=== PATIENT | male | born 1950 | race Caucasian/White ===

== ENCOUNTER → 2016-08-14 | Outpatient (CLI) | payer OTHER ==
[~2016-08-14] MED LIST: ACET-24 PO; AMLO-110 PO; ASPEC81 PO; ASPI81TA28 PO; ATOR-24 PO; CLOP1TAB15 PO; CLR10 PO; CLX20 PO; COEN30CA8 PO; COQ10 PO; DOXY100C76 PO; DVN80 PO; EPIPEN0.3 M1 IM; EPP3/2 IM; FLUT0.15 NAE; GLUCOSAMINE; GLUCTAB32 PO; LISI40TA PO; METO25TA56 PO; MULT-506 PO; NTRGSL/4 UT; OMEG10007 PO; ONDA8TAB6 PO; OXYSR10 PO; REVIEWED; RXC5 PO; SIMV20TA2 PO; TRAM-10 PO; VITA1TAB12 PO; VNTHFA/IN INH; ZNTT/150 PO; vitamin E
[2016-08-14 17:48] LABS: ALT/SGPT 20 U/L (12-78); BLOOD UREA NITROGEN 12 mg/dl (7-18); BUN/CREATININE RATIO 16.9 (10-20); CALCIUM 8.5 mg/dl (8.5-10.1); CARBON DIOXIDE 28 mmol/L (21-32); CHLORIDE 108 mmol/L (98-107); CHOLESTEROL 106 mg/dl (0-200); CREATININE 0.71 mg/dl (0.60-1.40); GLUCOSE 92 mg/dl (70-99); POTASSIUM 4.1 mmol/L (3.5-5.1); SODIUM 141 mmol/L (136-145)
[2016-08-14 17:52] LABS: ALB/GLOB RATIO 1.3 (0.9-2); ALKALINE PHOSPHATASE 75 U/L (45-117); AST/SGOT 15 U/L (15-37); CHOLESTEROL/HDL RATIO 1.6; HDL CHOLESTEROL 67 mg/dl; LDL CHOLESTEROL CALCULATED 26 mg/dl; PROSTATE SPECIFIC ANTIGEN 0.262 ng/ml (0.000-4.000); TRIGLYCERIDES 64 mg/dl (0-150); VERY LOW DENSITY LIPOPROT CALC 13 mg/dl
== END | disposition home or self-care (01) ==
LOC: C.LABBFT 12:48
PROVIDERS: ATTEND Internal Medicine
DX: Z00.00 Encounter for general adult medical examination without abnormal findings (principal); I25.10 Atherosclerotic heart disease of native coronary artery without angina pectoris; I10 Essential (primary) hypertension

== ENCOUNTER → 2016-09-12 | Outpatient (CLI) | payer OTHER ==
[2016-09-12 12:45] LABS: ALT/SGPT 49 U/L (12-78); AST/SGOT 51 U/L (15-37); BLOOD UREA NITROGEN 24 mg/dl (7-18); BUN/CREATININE RATIO 24.2 (10-20); CARBON DIOXIDE 27 mmol/L (21-32); CHLORIDE 103 mmol/L (98-107); CREATININE 0.98 mg/dl (0.60-1.40); GLUCOSE 98 mg/dl (70-99); POTASSIUM 3.9 mmol/L (3.5-5.1); SODIUM 138 mmol/L (136-145)
[2016-09-12 12:46] LABS: ALKALINE PHOSPHATASE 78 U/L (45-117)
[2016-09-12 12:49] LABS: CALCIUM 9.3 mg/dl (8.5-10.1)
[2016-09-12 13:04] LABS: LYME DISEASE AB IGM NEG (NEG)
[2016-09-12 13:07] LABS: LYME DISEASE AB IGG NEG (NEG)
[2016-09-12 13:44] LABS: HEMATOCRIT 44.4 % (42-52); MEAN CELL VOLUME 90.4 fL (80-100); MEAN CORPUSCULAR HEMOGLOBIN 29.5 pg (25-34); MEAN CORPUSCULAR HGB CONC 32.7 g/dl (32-36); MEAN PLATELET VOLUME 11.4 fL (7.4-10.4); PLATELET COUNT 93 K/uL (130-400); RED BLOOD COUNT 4.91 M/uL (4.7-6.1); WHITE BLOOD COUNT 5.74 K/uL (4.8-10.8)
[2016-09-12 13:45] LABS: COMPLETE YES; ECHINOCYTES 1+; EOSINOPHIL % 0.9 %; LYMPH ABS # 1.25 K/uL (1.2-3.4); LYMPHOCYTE % 21.7 %; NEUTROPHILS % 38.3 %; PLT ESTIMATE DECREASED; VARIANT LYMPHOCYTE % 34.8 %
[2016-09-12 16:52] LABS: URINE APPEARANCE CLOUDY (CLEAR); URINE COLOR DK YELLOW; URINE EPITHELIAL CELL AUTO >30 /lpf (0-5); URINE NITRITE NEG (NEG); URINE SPECIFIC GRAVITY 1.042 (1.000-1.030); UROBILINOGEN NEG (NEG)
[2016-09-12 16:53] LABS: MANUAL MICROSCOPIC REQUIRED? NO; REVIEW REQ? YES
[2016-09-12 16:55] LABS: URINE BILIRUBIN NEG (NEG)
[2016-09-16 17:34] LABS: ANAPLASMA PHAGOCYTOPHIL IGG <1:64 (<1:64); ANAPLASMA PHAGOCYTOPHIL IGM <1:20 (<1:20); EHRLICHIA CHAFF IGG AB <1:64 (<1:64); EHRLICHIA CHAFF IGM AB <1:20 (<1:20)
== END | disposition home or self-care (01) ==
LOC: C.LABBFT 10:54
PROVIDERS: ATTEND Internal Medicine
DX: T14.8 Other injury of unspecified body region (principal); W57.XXXA Bitten or stung by nonvenomous insect and other nonvenomous arthropods, initial encounter; R50.9 Fever, unspecified

== ENCOUNTER 2016-11-05 07:53 | Inpatient (IN) | payer OTHER ==
--- NOTE | 2016-09-16 14:47 | PAT Medication Instructions ---
Service Date September 16, 2016. Current Home Medication List Albuterol Hfa (Ventolin Hfa), 2-4 PUFFS INH Q6H PRN for PRN Amlodipine (Norvasc), 5 MG PO QAM Aspirin Enteric Coated (Ecotrin Or Generic *), 81 MG PO QAM Atorvastatin (Lipitor), 40 MG PO QPM Doxycycline Monohydrate (Monodox), 100 MG PO BID Epinephrine (Epipen), 0.3 MG IM UD Fish Oil ([place]-3), 1 CAP PO QAM Fluticasone Propionate (Nasal) (Flonase Allergy Relief), 2 SPRAYS BÁRBARA QPM Qvolkybrghc-Bqarhsvtvkn-Qz Cho (Glucosamine Chondroitin &), 2 TAB PO QAM Lisinopril (Zestril), 40 MG PO QAM Loratadine (Claritin), 10 MG PO QPM Metoprolol Tartrate (Lopressor) (Lopressor), 75 MG PO BID Multivitamin (Multivitamin), 1 TAB PO QAM Nitroglycerin (Nitrostat), 0.4 MG UT PRN Ranitidine (Zantac), 150 MG PO HS Vitamin E (Vitamin E), 100 PO QAM [Coq10], 1 TAB PO QAM Medication Instructions For Your Scheduled Surgery Doxycycline Monohydrate (Monodox), 100 MG PO BID (to be completed prior to surgery) Epinephrine (Epipen), 0.3 MG IM UD (continue as directed if needed) - Hold the following medications 2 weeks prior to surgery: [Coq10], 1 TAB PO QAM Vitamin E (Vitamin E), 100 PO QAM Xkwqsxnszml-Wbwzmbdnodk-Xe Cho (Glucosamine Chondroitin &), 2 TAB PO QAM Fish Oil ([place]-3), 1 CAP PO QAM - Hold the following medications the morning of surgery: Multivitamin (Multivitamin), 1 TAB PO QAM Lisinopril (Zestril), 40 MG PO QAM - Take the following medications the morning of surgery with a sip of water: Nitroglycerin (Nitrostat), 0.4 MG UT PRN Metoprolol Tartrate (Lopressor) (Lopressor), 75 MG PO BID Amlodipine (Norvasc), 5 MG PO QAM Albuterol Hfa (Ventolin Hfa), 2-4 PUFFS INH Q6H PRN for PRN (bring with you day of surgery) Aspirin Enteric Coated (Ecotrin Or Generic *), 81 MG PO QAM - Take the following medications as scheduled the night before surgery: Ranitidine (Zantac), 150 MG PO HS Nitroglycerin (Nitrostat), 0.4 MG UT PRN Metoprolol Tartrate (Lopressor) (Lopressor), 75 MG PO BID Loratadine (Claritin), 10 MG PO QPM Fluticasone Propionate (Nasal) (Flonase Allergy Relief), 2 SPRAYS BÁRBARA QPM Atorvastatin (Lipitor), 40 MG PO QPM Albuterol Hfa (Ventolin Hfa), 2-4 PUFFS INH Q6H PRN for PRN If you have any questions please call us at [phone] (Jennifer Woodward PA-C ) or [phone] or [phone]
--- NOTE | 2016-09-16 15:15 | DIAGNOSTIC IMAGING REPORT ---
CHEST 2 VIEWS ROUTINE CLINICAL HISTORY: PAT preoperative evaluation COMPARISON STUDY: No previous studies for comparison. FINDINGS: The bones soft tissues and hemidiaphragms are normal. The cardiomediastinal silhouette is normal. The lungs are clear. The pulmonary vasculature is normal. IMPRESSION: Negative chest. Electronically signed by: Royce Adair M.D. 09/16/2016 3:14 PM Dictated Date/Time: 09/16/2016 3:14 PM
[2016-09-16 15:32] LABS: URINE APPEARANCE CLEAR (CLEAR); URINE BILIRUBIN NEG (NEG); URINE COLOR DK YELLOW; URINE NITRITE NEG (NEG); URINE SPECIFIC GRAVITY 1.025 (1.000-1.030); UROBILINOGEN NEG (NEG); ZZUR CULT IF INDIC CLEAN CATCH NO
[2016-09-16 15:36] LABS: BASO % 1.7 %; BASO ABS # 0.11 K/uL (0-0.2); COMPLETE YES; EOS % 2.6 %; HEMATOCRIT 38.1 % (42-52); IG% 0.2 %; LYMPH % 47.8 %; LYMPH ABS # 3.12 K/uL (1.2-3.4); MEAN CELL VOLUME 92.3 fL (80-100); MEAN CORPUSCULAR HEMOGLOBIN 29.5 pg (25-34); MEAN PLATELET VOLUME 9.5 fL (7.4-10.4); MONO % 11.6 %; NEUT % 36.1 %; PLATELET COUNT 260 K/uL (130-400); RED BLOOD COUNT 4.13 M/uL (4.7-6.1); WHITE BLOOD COUNT 6.53 K/uL (4.8-10.8)
[2016-09-16 15:38] LABS: MANUAL MICROSCOPIC REQUIRED? NO; REVIEW REQ? NO
[2016-09-16 15:39] LABS: INR 1.1 (0.9-1.1); PARTIAL THROMBOPLASTIN RATIO 1.2; PROTHROMBIN TIME (PATIENT) 11.5 SECONDS (9.0-12.0)
[2016-09-17 07:02] LABS: ESTIMATED AVERAGE GLUCOSE 123 mg/dl; HA1C FLAG Normal (Normal)
--- NOTE | 2016-11-04 22:28 | History and Physical ---
History & Physical Date & Time of Service: Nov 04, 2016 at 22:23 Chief Complaint: Left Knee Degenerative Joint Disease Primary Care Physician: Jamee Alford M.D. History of Present Illness Source: patient Social History Smoking Status: Former Smoker Alcohol Use: none Drug Use: none Immunizations History of Influenza Vaccine: No History of Tetanus Vaccine?: Yes History of Pneumococcal: Yes History of Hepatitis B Vaccine: Yes Multi-Drug Resistant Organisms History of MDRO: No Allergies Coded Allergies: BEE STING (Verified Allergy, Mild, ANAPHYLACTIC-WAS TREATED BY NOTE TAKER- SUPPOSED TO BE IMMUNE, 09/16/16) Naproxen (Verified Allergy, Mild, POSSIBLE HIVES, 09/16/16) Cat Dander (Verified Allergy, Unknown, WHEEZING, ITCHY EYES WITH SOME CATS , 09/16/16) Home Medications Scheduled Amlodipine (Norvasc), 5 MG PO QAM Aspirin Enteric Coated (Ecotrin Or Generic *), 81 MG PO QAM Atorvastatin (Lipitor), 40 MG PO QPM Doxycycline Monohydrate (Monodox), 100 MG PO BID Epinephrine (Epipen), 0.3 MG IM UD Fish Oil ([place]-3), 1 CAP PO QAM Fluticasone Propionate (Nasal) (Flonase Allergy Relief), 2 SPRAYS BÁRBARA QPM Ovnxaavzsev-Mldkwhnopxe-Ja Cho (Glucosamine Chondroitin &), 2 TAB PO QAM Lisinopril (Zestril), 40 MG PO QAM Loratadine (Claritin), 10 MG PO QPM Metoprolol Tartrate (Lopressor) (Lopressor), 75 MG PO BID Multivitamin (Multivitamin), 1 TAB PO QAM Nitroglycerin (Nitrostat), 0.4 MG UT PRN Ranitidine (Zantac), 150 MG PO HS Vitamin E (Vitamin E), 100 PO QAM [Coq10], 1 TAB PO QAM Scheduled PRN Albuterol Hfa (Ventolin Hfa), 2-4 PUFFS INH Q6H PRN for PRN Review of Systems Musculoskeletal: + joint pain (left knee pain), No swelling, No calf pain, No problem reported Physical Exam General Appearance: WD/WN, no apparent distress Head: normocephalic, atraumatic Eyes: normal inspection, PERRL ENT: normal ENT inspection Neck: supple, thyroid normal Respiratory/Chest: lungs clear Cardiovascular: regular rate, rhythm Abdomen/GI: normal bowel sounds, non tender Extremities/Musculoskelatal: no calf tenderness, + swelling (ROM 0-130, med jt line tenderness, varus, + crep, 5/5, N/V+) Impression Assessment and Plan Left knee OA Level of Care Med/Surg Advanced Directives Existing Living Will: Yes Existing Power of Chief Medical Officer: Yes VTE Prophylaxis VTE Risk Assessment Done? Y/N: Yes Risk Level: Low
[2016-11-05] VITALS (9 sets, daily range): BP systolic 91–153; BP diastolic 58–86; PULSE 58–81; TEMP 36.2–36.7; O2SAT 95–99; Ht 182.9 cm; Wt 101.1 kg
[~2016-11-05] VITALS: Ht 182.9 cm; Wt 101.1 kg
[~2016-11-05 07:53] MED LIST changes: -ACET-24 PO; +ACETAMINOPHEN 500 MG TAB PO SCH; -ASPI81TA28 PO; +BUPIVACAINE 0.5 % 5 MG/1 ML PF 10ML VIAL ONE; +BUPIVACAINE/EPINEPHRINE 0.25% 1:200,000 30 ML VIAL ONE; +CEFAZOLIN 2000 MG/60 ML D5W 60 ML IV SCH; -CLOP1TAB15 PO; -CLX20 PO; -COEN30CA8 PO; +CeleBREX 200 MG CAP PO SCH; +DEXAMETHASONE 4 MG TAB PO SCH; +DEXAMETHASONE SOD INJ 4 MG/ML VIAL ONE; -DVN80 PO; -EPIPEN0.3 M1 IM; +FAMOTIDINE 20 MG TAB PO SCH; +FENTANYL CITRATE INJ 50 MCG/1 ML 2 ML VIAL ONE; +GABAPENTIN 300 MG CAP PO SCH; -GLUCOSAMINE; +LACTATED RINGER'S 1000ML 1,000 ML IV SCH; +LACTATED RINGER'S 1000ML 500 ML IV SCH; +LACTATED RINGER'S 1000ML IV SCH; +METOCLOPRAMIDE HCL 10 MG TAB PO SCH; +MIDAZOLAM HCL 1 MG/ML 2ML VIAL ONE; +MISSING PHYSICIAN SIGNATURE ON ORDER SCH; -ONDA8TAB6 PO; -OXYSR10 PO; -REVIEWED; +ROPIVACAINE 5MG/ML 30 ML 150 MG, BUPIVACAINE/EPINEPHR 0.5% MPF 30 ML, DEXAMETHASONE INJ... INFIL SCH; -RXC5 PO; -SIMV20TA2 PO; -TRAM-10 PO; -vitamin E
--- NOTE | 2016-11-05 09:03 | History & Physical Bridge Note ---
H&P Re-Evaluation Bridge Note: I have examined the patient, reviewed the History & Physical and in the interval since the performance of the History & Physical I have noted the following changes of clinical significance: No changes noted
[2016-11-05] MEDS ORDERED: POVIDONE-IODINE OP SOLN 30 ML BTL ONE (09:47)
[2016-11-05] MEDS ORDERED: BACITRACIN 50000 UNIT VIAL ONE (09:47)
[2016-11-05] MEDS ORDERED: ROPIVACAINE 5MG/ML 30 ML 150 MG, BUPIVACAINE/EPINEPHR 0.5% MPF 30 ML, DEXAMETHASONE INJ... INFIL SCH ×6 (10:00)
[2016-11-05] MEDS ORDERED: ORTHO JOINT ANESTHETIC ONE (10:01)
[2016-11-05] MEDS ORDERED: MIDAZOLAM HCL 1 MG/ML 2ML VIAL ONE ×2 (10:29→10:58)
[2016-11-05] MEDS ORDERED: PROPOFOL IV EMULSION 10 MG/ML 20 ML VIAL IV ONE (10:41)
[2016-11-05] MEDS ORDERED: EpHEDrine SULFATE INJ 50 MG/ML AMP IV PRN (10:45)
[2016-11-05] MEDS ORDERED: ONDANSETRON INJ 2 MG/ML 2 ML VIAL IV PRN (10:45)
[2016-11-05] MEDS ORDERED: FENTANYL CITRATE INJ 50 MCG/1 ML 2 ML VIAL IV PRN (10:45)
[2016-11-05] MEDS ORDERED: ATROPINE SULFATE 0.1 MG/ML 5ML SYR IV PRN (10:45)
--- NOTE | 2016-11-05 11:55 | [facility] Operative Report ---
Operative Report Operative Date Nov 05, 2016. Pre-Operative Diagnosis Left Knee Degenerative Joint Disease Post-Operative Diagnosis same Procedure(s) Performed left total knee replacement Surgeon Dr. Danielle Human Resources Recruiter Surgeon(s) Royce Armendariz PA-C Estimated Blood Loss 5ml Findings end stage oa med compartment Specimens A. Left Knee Bone and Tissue Drains 2 hemovac Anesthesia spinal sedation Complication(s) None Disposition Recovery Room / PACU Indications end stage djd oa I attest to the content of the Intraoperative Record and any orders documented therein. Any exceptions are noted below.
[2016-11-05] MEDS ORDERED: ZOLPIDEM TARTRATE 5 MG TAB PO PRN (12:30)
[2016-11-05] MEDS ORDERED: MoRPHine SULFATE 2 MG/ML CARP IV PRN (12:30)
[2016-11-05] MEDS ORDERED: NITROGLYCERIN 0.4 MG SL PER TAB CHARGE UT PRN (12:30)
[2016-11-05] MEDS ORDERED: SOD PHOSPHATE/SOD BIPHOSPHATE ENEMA 132 ML BTL PR PRN (12:30)
[2016-11-05] MEDS ORDERED: EPINEPHRINE ADULT AUTO-INJECT 0.3 MG SYR IM PRN (12:30)
[2016-11-05] MEDS ORDERED: ALBUTEROL HFA 8 GM INHALER INH PRN (12:30)
[2016-11-05] MEDS ORDERED: TRAMADOL HCL 50 MG TAB PO PRN (12:30)
[2016-11-05] MEDS ORDERED: BISACODYL 10 MG SUPP PR PRN (12:30)
[2016-11-05] MEDS ORDERED: MAGNESIUM HYDROXIDE SUSP 30 ML UDC PO PRN (12:30)
[2016-11-05] MEDS ORDERED: MoRPHine SULFATE 4 MG/ML 1 ML CARP\\VIAL IV PRN (13:00)
--- NOTE | 2016-11-05 13:32 | DIAGNOSTIC IMAGING REPORT ---
TWO VIEWS LEFT KNEE CLINICAL HISTORY: Postoperative examination. FINDINGS: AP and crosstable lateral portable views of the left knee are obtained. A left knee arthroplasty is in near anatomic alignment. There has been undersurface remodeling of the patella. No acute fracture is seen. There are expected postoperative changes around the knee including skin clips, a surgical drain, soft tissue edema, and subcutaneous gas. A calcified fabella is noted. IMPRESSION: Expected postoperative changes status post left knee arthroplasty. No acute fracture is seen. Electronically signed by: David Sanchez M.D. 11/05/2016 1:30 PM Dictated Date/Time: 11/05/2016 1:30 PM
--- NOTE | 2016-11-05 14:12 | Anesthesiology Progress Note ---
Anesthesia Post Op Note Date & Time Nov 05, 2016 at 14:12 Vital Signs Pain Intensity: 0.0 Vital Signs Past 12 Hours Date Time Temp Pulse Resp B/P (MAP) Pulse Ox O2 Delivery O2 Flow Rate FiO2 11/05/16 14:05 36.5 58 16 118/75 (89) 98 Nasal Cannula 2.0 11/05/16 13:35 97 Nasal Cannula 2.0 11/05/16 13:35 36.2 68 16 134/69 (90) 97 Nasal Cannula 2.0 11/05/16 13:23 57 16 11/05/16 13:23 56 16 97 11/05/16 13:21 116/74 11/05/16 13:18 63 10 97 11/05/16 13:18 60 10 11/05/16 13:16 122/75 11/05/16 13:13 55 15 97 11/05/16 13:13 55 15 11/05/16 13:11 120/65 11/05/16 13:08 58 14 98 11/05/16 13:08 58 14 11/05/16 13:06 100/70 11/05/16 13:03 57 13 98 11/05/16 13:03 56 13 11/05/16 13:01 121/73 11/05/16 12:58 58 12 11/05/16 12:58 58 12 99 11/05/16 12:56 121/72 11/05/16 12:53 66 13 98 11/05/16 12:53 67 13 11/05/16 12:53 36.3 56 16 121/72 (83) 98 Nasal Cannula 2 11/05/16 12:52 64 18 11/05/16 12:52 64 18 98 11/05/16 12:51 120/73 11/05/16 12:47 60 13 98 11/05/16 12:47 63 13 11/05/16 12:46 121/67 11/05/16 12:42 62 13 97 11/05/16 12:42 63 13 11/05/16 12:41 118/72 11/05/16 12:37 62 12 96 11/05/16 12:37 61 12 11/05/16 12:36 123/73 11/05/16 12:32 68 12 98 11/05/16 12:32 70 12 11/05/16 12:31 60 12 11/05/16 12:31 59 12 126/70 99 11/05/16 12:26 67 20 11/05/16 12:26 68 20 127/70 98 11/05/16 12:21 35.9 77 14 135/72 98 Nasal Cannula 2 11/05/16 12:21 65 33 135/72 98 11/05/16 12:21 65 33 11/05/16 08:30 36.7 58 20 153/86 98 Room Air Notes Mental Status: alert / awake / arousable, participated in evaluation Pt Amnestic to Procedure: Yes Nausea / Vomiting: adequately controlled Pain: adequately controlled Airway Patency, RR, SpO2: stable & adequate BP & HR: stable & adequate Hydration State: stable & adequate Neuraxial Anesthesia: was administered, sensory block is resolving Anesthetic Complications: no major complications apparent
[2016-11-05] MEDS: D5W AND 1/2NSS + 20MEQ KCL 1,000 ML IV SCH (14:24)
[2016-11-05] MEDS: ACETAMINOPHEN 500 MG TAB PO SCH ×2 (14:24→21:25)
--- NOTE | 2016-11-05 14:51 | Medical Consult ---
History General Date of Service: Nov 05, 2016. Stated Complaint: Left Knee Degenerative Joint Disease HPI The patient is a 66 year old male who presents to [facility] with complaints of Left Knee Degenerative Joint Disease. The patient's primary care provider is Jamee Alford M.D.. This patient is seen postoperatively for medical consultation, patient is doing well and recovering without much pain. The patient was told to not take lisinopril the day of his surgery, he'll be reordered on November 06 at half his usual strength. The patient did see his incident response lead in [place] and received cardiac clearance for the surgery including a nuclear stress test, he however has not established care yet plans to do so with Dr. Denys Zuniga in this area. Currently the patient is resting comfortably without any needs Review of Systems ROS: well nourished well developed NC/AT PERRL EOMI Sclera normal Neck no JVD, no adenopathy, trachea midline Car is regular without murmur Lungs are clear no focal air loss, no cough Abd is soft non tender normal bowel sounds Extremity, no edema no cyanosis, still some mild numbness of the left lower leg Skin no rash or lesions Neuro Alert and oriented X3 Psyche no anxiety or depression Constitutional: reports: weakness, denies: chills, fever ENT: denies: loss of hearing, tinnitus Cardiovascular: denies: chest pain, chest pressure, chest tightness, diaphoresis Respiratory: denies: cough, orthopnea, shortness of breath Gastrointestinal: denies: abdominal pain, constipation, diarrhea Genitourinary - Male: denies: dysuria, hematuria, hesitancy Musculoskeletal: denies: arthralgias, neck pain, back pain Integumentary: denies: rash, redness, warmth, itching Neurologic: denies: headache, dizziness, general weakness Psychiatric: denies: no symptoms, anxiety, depression Past Medical History Past Medical History: coronary artery disease, GERD, high cholesterol, hypertension Past Surgical History: angioplasty with stent, vasectomy Family History Family history of heart disease in his father and Parkinson's disease in his mother Social History Hx Tobacco Use In Past Year?: Yes (CIGAR, PIPE X 45-50 YRS-QUIT 8 YRS AGO) Smoking Status: Former Smoker Immunizations History of Influenza Vaccine: No History of Tetanus Vaccine?: Yes History of Pneumococcal: Yes History of Hepatitis B Vaccine: Yes History of MDRO History of MDRO: No Allergies Coded Allergies: BEE STING (Verified Allergy, Mild, ANAPHYLACTIC-WAS TREATED BY WAREHOUSE STOCK CLERK- SUPPOSED TO BE IMMUNE, 11/05/16) Naproxen (Verified Allergy, Mild, POSSIBLE HIVES, 11/05/16) Cat Dander (Verified Allergy, Unknown, WHEEZING, ITCHY EYES WITH SOME CATS , 11/05/16) Current Medications Reported Home Medications Medications Dose Route/Sig Max Daily Dose Days Date Category [Coq10] 1 Tab PO QAM 09/16/16 Reported Vitamin E 100 Unit Tab 100 PO QAM 09/16/16 Reported Multivitamin (Multivitamins) Tab 1 Tab PO QAM 09/16/16 Reported Glucosamine Chondroitin & (Pwvgdugefeb-Urzwhemzsxn-Zz Cho) 1 Tab Tab 2 Tab PO QAM 09/16/16 Reported Claritin (Loratadine) 10 Mg Tab 10 Mg PO QPM 09/16/16 Reported Epipen (Epinephrine) 0.3 Mg/0.3 Ml Inj 0.3 Mg IM UD 09/16/16 Reported Nitrostat (Nitroglycerin) 0.4 Mg Tab 0.4 Mg UT PRN 09/16/16 Reported Norvasc (Amlodipine Besylate) 5 Mg Tab 5 Mg PO QAM 09/16/16 Reported Lipitor (Atorvastatin Calcium) 40 Mg Tab 40 Mg PO QPM 09/16/16 Reported Ventolin Hfa (Albuterol) 200 Puffs/58800 Mcg Aers 2-4 Puffs INH Q6H PRN 09/16/16 Reported Zantac (Ranitidine HCl) 150 Mg Tab 150 Mg PO HS 09/16/16 Reported Flonase Allergy Relief (Fluticasone Propionate (Nasal)) 50 Mcg/Act Spr 2 Sprays BÁRBARA QPM 09/16/16 Reported Zestril (Lisinopril) 40 Mg Tab 40 Mg PO QAM 09/16/16 Reported Monodox (Doxycycline Monohydrate) 100 Mg Cap 100 Mg PO BID 09/16/16 Reported Lopressor (Metoprolol Tartrate) 25 Mg Tab 75 Mg PO BID 11/07/07 Reported [place]-3 (Fish Oil) 1 Ea Cap 1 Cap PO QAM 10/29/07 Reported Ecotrin Or Generic * (Aspirin) 81 Mg Ectab 81 Mg PO QAM 10/29/07 Reported Physical Physical Exam Vital Signs: Date Time Temp Pulse Resp B/P (MAP) Pulse Ox O2 Delivery O2 Flow Rate FiO2 11/05/16 14:05 36.5 58 16 118/75 (89) 98 Nasal Cannula 2.0 11/05/16 13:35 97 Nasal Cannula 2.0 11/05/16 13:35 97 Nasal Cannula 2.0 11/05/16 13:35 36.2 68 16 134/69 (90) 97 Nasal Cannula 2.0 11/05/16 13:23 57 16 11/05/16 13:23 56 16 97 11/05/16 13:21 116/74 11/05/16 13:18 63 10 97 11/05/16 13:18 60 10 11/05/16 13:16 122/75 11/05/16 13:13 55 15 97 11/05/16 13:13 55 15 11/05/16 13:11 120/65 11/05/16 13:08 58 14 98 11/05/16 13:08 58 14 11/05/16 13:06 100/70 11/05/16 13:03 57 13 98 11/05/16 13:03 56 13 11/05/16 13:01 121/73 11/05/16 12:58 58 12 11/05/16 12:58 58 12 99 11/05/16 12:56 121/72 11/05/16 12:53 66 13 98 11/05/16 12:53 67 13 11/05/16 12:53 36.3 56 16 121/72 (83) 98 Nasal Cannula 2 11/05/16 12:52 64 18 11/05/16 12:52 64 18 98 11/05/16 12:51 120/73 11/05/16 12:47 60 13 98 11/05/16 12:47 63 13 11/05/16 12:46 121/67 11/05/16 12:42 62 13 97 11/05/16 12:42 63 13 11/05/16 12:41 118/72 11/05/16 12:37 62 12 96 11/05/16 12:37 61 12 11/05/16 12:36 123/73 11/05/16 12:32 68 12 98 11/05/16 12:32 70 12 11/05/16 12:31 60 12 11/05/16 12:31 59 12 126/70 99 11/05/16 12:26 67 20 11/05/16 12:26 68 20 127/70 98 11/05/16 12:21 35.9 77 14 135/72 98 Nasal Cannula 2 11/05/16 12:21 65 33 135/72 98 11/05/16 12:21 65 33 11/05/16 08:30 36.7 58 20 153/86 98 Room Air General Appearance: WELL-APPEARING, NO APPARENT DISTRESS, uncomfortable Head: NORMOCEPHALIC, ATRAUMATIC Eyes: PERRLA, EOMI Respiratory: BREATH SOUNDS NORMAL, CLEAR TO AUSCULTATION, CLEAR TO PERCUSSION Cardiovasular: REGULAR RATE/RHYTHM, NORMAL S1S2, NO MURMUR Abdomen: NON TENDER, NORMAL BOWEL SOUNDS, NO REBOUND Back: NORMAL INSPECTION, NO MIDLINE TENDERNESS, NO CVA TENDERNESS Upper Extremities: NO EDEMA, NO DEFORMITY Lower Extremities: other (his left lower extremity is warm with good capillary refill) Neuro: ALERT, ORIENTED x 3 Psychiatric: NORMAL AFFECT, NO SUICIDAL IDEATION Impression Assessment and Plan 66-year-old male status post left total knee arthroplasty with cardiac clearance from incident response lead Cardiovascular/hypertension the patient was maintained on his metoprolol and amlodipine. His Synthroid dose was held on the will be reduced to 20 on the hydralazine tobacco for hypertensive control Surgery as soon just. Aspirin twice a day for DVT prevention perioperatively this will also serve her cardiovascular risk reduction given his stent On postoperative dyslipidemia Maintenance Zantac for GERD Thank you this consultation we'll follow along with you
[2016-11-05] MEDS ORDERED: HydrALAZINE HCL 20 MG/ML VIAL IV PRN (15:00)
--- NOTE | 2016-11-05 18:09 | [facility] Operative Report ---
Operative Report Operative Date Nov 05, 2016. Pre-Operative Diagnosis Left Knee Degenerative Joint Disease Post-Operative Diagnosis same Procedure(s) Performed Left total knee arthroplasty. The patient was taken to the operating room and anesthetized under spinal and regional block anesthesia. Patient was placed supine on the the operating table. A pneumatic tourniquet was placed about the upper thigh. The knee exam demonstrated stiff varus knee with old arthroscopic portal sites in the skin.. An anterior longitudinal incision was made across the knee. Skin flaps were elevated. An incision was made into the medial retinaculum and extended up into the mid third of the quadriceps tendon and extended down to the tibial tubercle. Intra-articular findings demonstrated scar tissue grade 4 medial compartment [id number] tricompartmental degenerative arthritis.. The knee was exposed by excising cruciate ligaments and menisci. The infrapatellar fat pad was resected. The fat pad over the anterior femur at the upper aspect of the articular surface was resected for placement of the component in that area. A subperiosteal peel lateral release was performed around the patella The Hu and nephKingmaker journey 2.0 total knee arthroplasty system was utilized for the procedure. The custom femoral cutting guide was pinned in position. The distal femoral cut was made. The size 6, 5 in 1 cutting block was placed. The anterior posterior and chamfer cuts were made. The knee was extended and a free hand cut technique was performed to the patella. The patella with was measured and the width was reproduced using a size 35 mm patella component. 3 drill holes are made for the patella component pegs. The tibia was then subluxed. The custom tibial cutting block was pinned in position and the proximal tibial cut was made with the oscillating saw. The size 6 tibial trial was externally rotated in line with the tibial tubercle and pinned in position. The punch for the stem was used and the collet was placed. Tibial trials were used for the insert. The size 11 mm trial gave balanced ligaments through full range of motion. Patella tracking was assessed with range of motion. The patella tracked centrally. The trials were removed. The Orthomix anesthetic cocktail was injected per protocol. The cut bone surfaces and soft tissue were copiously irrigated with antibiotic solution with bacitracin. The final components were cemented with Simplex cement. The final components were the 6 Oxinium posterior stabilized Hu nephew journey 2.0 femoral component the 6 tibial baseplate the 11 mm high flex posterior stabilized polyethylene and the 35 mm patella. While the cement cured the Betadine soak was used per protocol. When the cement cured the knee was copiously irrigated with pulsatile lavage antibiotic solution with bacitracin. 2 drains were brought out laterally connected to Hemovac. The quadriceps tendon and medial retinaculum were closed with interrupted [id number] #1 Vicryl sutures. The knee was taken through full range of motion and repair was secure. The subcutaneous tissues were closed with 2-0 Vicryl sutures. The skin was closed with susana. A sterile dressing was applied. The tourniquet was let down and the patient had good capillary refill to the extremity. The patient tolerated the procedure well. My physician assistant finance manager Royce LESLIE assisted in the procedure including prepping draping leg positioning soft tissue retraction instrument management and assisted in the closure ,dressings application and will participate in postoperative care the patient. Surgeon Dr. Danielle Warp Hauler Surgeon(s) Royce LESLIE-Veronica Estimated Blood Loss 5ml Findings Tricompartmental DJD medial compartment grade 4 with varus knee Specimens A. Left Knee Bone and Tissue Drains 2 hemovac Anesthesia spinal sedation Complication(s) None Disposition Recovery Room / PACU Indications End-stage osteoarthritis left knee I attest to the content of the Intraoperative Record and any orders documented therein. Any exceptions are noted below.
[2016-11-05] MEDS: OXYCODONE HCL IR 5 MG TAB (IMMEDIATE RELEASE) PO PRN (18:56)
[2016-11-05] MEDS: CEFAZOLIN IV 2,000 MG in DEXTROSE 5% 50ML 50 ML IV SCH (19:16)
[2016-11-05] MEDS: METOPROLOL TARTRATE 25 MG TAB PO SCH (21:00)
[2016-11-05] MEDS: OXYCODONE HCL 10 MG TABCR (OXYCONTIN) PO SCH (21:20)
[2016-11-05] MEDS: RANITIDINE HCL 150 MG TAB PO SCH (21:22)
[2016-11-05] MEDS: FLUTICASONE PROPIONATE NA SPR 16 GM BTL NAE SCH (21:22)
[2016-11-05] MEDS: ATORVASTATIN 40 MG TAB PO SCH (21:23)
[2016-11-05] MEDS: ASPIRIN 81 MG ECTAB PO SCH (21:24)
[2016-11-05] MEDS: LORATADINE 10 MG TAB PO SCH (21:24)
[2016-11-05] MEDS: DOCUSATE SODIUM 100 MG CAP PO SCH (21:24)
[2016-11-06] VITALS (8 sets, daily range): BP systolic 110–166; BP diastolic 62–89; PULSE 77–92; TEMP 36.5–37.1; O2SAT 94–98
[2016-11-06] MEDS: D5W AND 1/2NSS + 20MEQ KCL 1,000 ML IV SCH (00:02)
[2016-11-06] MEDS: CEFAZOLIN IV 2,000 MG in DEXTROSE 5% 50ML 50 ML IV SCH (01:31)
[2016-11-06] MEDS: OXYCODONE HCL IR 5 MG TAB (IMMEDIATE RELEASE) PO PRN ×3 (03:45→16:29)
[2016-11-06] MEDS: ACETAMINOPHEN 500 MG TAB PO SCH ×3 (05:32→22:02)
[2016-11-06 05:51] LABS: HEMATOCRIT 31.4 % (42-52); MEAN CELL VOLUME 92.1 fL (80-100); MEAN CORPUSCULAR HEMOGLOBIN 30.2 pg (25-34); MEAN CORPUSCULAR HGB CONC 32.8 g/dl (32-36); MEAN PLATELET VOLUME 8.8 fL (7.4-10.4); PLATELET COUNT 182 K/uL (130-400); RED BLOOD COUNT 3.41 M/uL (4.7-6.1); WHITE BLOOD COUNT 13.48 K/uL (4.8-10.8)
[2016-11-06 06:26] LABS: BUN/CREATININE RATIO 24.4 (10-20); CREATININE 0.74 mg/dl (0.60-1.40); POTASSIUM 3.9 mmol/L (3.5-5.1)
[2016-11-06 06:49] LABS: CALCIUM 8.3 mg/dl (8.5-10.1)
[2016-11-06] MEDS: OXYCODONE HCL 10 MG TABCR (OXYCONTIN) PO SCH ×2 (08:40→20:41)
[2016-11-06] MEDS: MULTIVITAMIN TAB PO SCH (08:41)
[2016-11-06] MEDS: DOCUSATE SODIUM 100 MG CAP PO SCH ×2 (08:41→20:40)
[2016-11-06] MEDS: AMLODIPINE BESYLATE 5 MG TAB PO SCH (08:41)
[2016-11-06] MEDS: ASPIRIN 81 MG ECTAB PO SCH ×2 (08:42→20:40)
[2016-11-06] MEDS: METOPROLOL TARTRATE 25 MG TAB PO SCH ×2 (08:42→20:42)
[2016-11-06] MEDS: PANTOprazole SOD 40 MG TAB PO SCH (08:42)
[2016-11-06] MEDS ORDERED: LISINOPRIL 10 MG TAB PO SCH (09:00)
[2016-11-06] MEDS ORDERED: LISINOPRIL 40 MG TAB PO SCH (09:00)
--- NOTE | 2016-11-06 09:24 | Orthopedic Progress Note ---
Orthopedic Progress Note Date of Service Nov 06, 2016. Subjective Post OP Day: 1 Reports: feeling well Objective N/V intact, dressing C/D/I (Hemovac in place), toes mobile Date Time Temp Pulse Resp B/P (MAP) Pulse Ox O2 Delivery O2 Flow Rate FiO2 11/06/16 08:42 77 115/66 (82) 11/06/16 07:15 Room Air 11/06/16 07:00 37.0 84 16 110/64 (79) 96 Room Air 11/06/16 03:37 36.7 81 16 116/67 (83) 95 Room Air 11/05/16 23:10 36.7 81 16 111/67 (82) 96 Room Air 11/05/16 20:30 100/62 (75) 11/05/16 20:25 Room Air 11/05/16 20:12 36.7 70 16 91/58 (69) 96 Room Air 11/05/16 16:45 Nasal Cannula 2.0 11/05/16 16:35 36.5 67 16 134/76 (95) 95 Room Air 11/05/16 15:35 36.5 59 16 130/74 (92) 97 Nasal Cannula 2.0 11/05/16 14:35 59 16 144/80 (101) 99 11/05/16 14:05 36.5 58 16 118/75 (89) 98 Nasal Cannula 2.0 11/05/16 13:35 97 Nasal Cannula 2.0 11/05/16 13:35 97 Nasal Cannula 2.0 11/05/16 13:35 36.2 68 16 134/69 (90) 97 Nasal Cannula 2.0 11/05/16 13:23 57 16 11/05/16 13:23 56 16 97 11/05/16 13:21 116/74 11/05/16 13:18 63 10 97 11/05/16 13:18 60 10 11/05/16 13:16 122/75 11/05/16 13:13 55 15 97 11/05/16 13:13 55 15 11/05/16 13:11 120/65 11/05/16 13:08 58 14 98 11/05/16 13:08 58 14 11/05/16 13:06 100/70 11/05/16 13:03 57 13 98 11/05/16 13:03 56 13 11/05/16 13:01 121/73 11/05/16 12:58 58 12 11/05/16 12:58 58 12 99 11/05/16 12:56 121/72 11/05/16 12:53 66 13 98 11/05/16 12:53 67 13 11/05/16 12:53 36.3 56 16 121/72 (83) 98 Nasal Cannula 2 11/05/16 12:52 64 18 11/05/16 12:52 64 18 98 11/05/16 12:51 120/73 11/05/16 12:47 60 13 98 11/05/16 12:47 63 13 11/05/16 12:46 121/67 11/05/16 12:42 62 13 97 11/05/16 12:42 63 13 11/05/16 12:41 118/72 11/05/16 12:37 62 12 96 11/05/16 12:37 61 12 11/05/16 12:36 123/73 11/05/16 12:32 68 12 98 11/05/16 12:32 70 12 11/05/16 12:31 60 12 11/05/16 12:31 59 12 126/70 99 11/05/16 12:26 67 20 11/05/16 12:26 68 20 127/70 98 11/05/16 12:21 35.9 77 14 135/72 98 Nasal Cannula 2 11/05/16 12:21 65 33 135/72 98 11/05/16 12:21 65 33 Laboratory Results 24 Hours: Test 11/06/16 05:43 Hematocrit 31.4 % Hemoglobin 10.3 g/dL Assessment & Plan Assessment: 66 yo male stable POD #1 s/p left TKA Plan: 1. Med management 2. DVT prophylaxis- ASA, SCDs 3. PT/OT 4. D/C planning- home w/ OPPT
--- NOTE | 2016-11-06 10:27 | Anesthesiology Progress Note ---
Anesthesia Post Op Note Date & Time Nov 06, 2016 at 10:27 Vital Signs Vital Signs Past 12 Hours Date Time Temp Pulse Resp B/P (MAP) Pulse Ox O2 Delivery O2 Flow Rate FiO2 11/06/16 08:42 77 115/66 (82) 11/06/16 07:15 Room Air 11/06/16 07:00 37.0 84 16 110/64 (79) 96 Room Air 11/06/16 03:37 36.7 81 16 116/67 (83) 95 Room Air 11/05/16 23:10 36.7 81 16 111/67 (82) 96 Room Air Notes Mental Status: alert / awake / arousable, participated in evaluation Pt Amnestic to Procedure: Yes Nausea / Vomiting: adequately controlled Pain: adequately controlled Airway Patency, RR, SpO2: stable & adequate BP & HR: stable & adequate Hydration State: stable & adequate Neuraxial Anesthesia: sensory block resolved Anesthetic Complications: no major complications apparent
--- NOTE | 2016-11-06 12:05 | Hospitalist Progress Note ---
Hospitalist Progress Note Date of Service Nov 06, 2016. Subjective Pt evaluation today including: conversation w/ patient, physical exam, chart review, lab review, review of inpatient medication list Pain: 5/10 aching left knee pain PO Intake: Tolerating PO diet Voiding: no voiding problems Patient complains of a 5/10 aching pain in her left knee but is otherwise feeling well. He states that immediately post op he had 2 episodes of incontinence while he was still numb from the anesthesia, but after the anesthesia wore off he has not had any urinary issues. He is tolerating a PO diet without difficulty. He is passing gas but denies any bowel movements. The patient did have an episode of nausea, vomiting, and dizziness during physical therapy, but this resolved immediately after laying back down in bed and has not recurred since. The patient denies fevers, chills, sweats, chest pain, palpitations, claudication, cough, wheezing, shortness of breath, abdominal pain, dysuria, hematuria, urinary retention, paralysis, weakness, numbness and tingling. Additional Comments: See HPI for pertinent positives and negatives. All other systems reviewed and negative. Objective Vital Signs Date Time Temp Pulse Resp B/P (MAP) Pulse Ox O2 Delivery O2 Flow Rate FiO2 11/06/16 11:23 82 94 11/06/16 10:50 36.5 80 16 124/75 (91) 96 Room Air 11/06/16 08:42 77 115/66 (82) 11/06/16 07:15 Room Air 11/06/16 07:00 37.0 84 16 110/64 (79) 96 Room Air 11/06/16 03:37 36.7 81 16 116/67 (83) 95 Room Air 11/05/16 23:10 36.7 81 16 111/67 (82) 96 Room Air 11/05/16 20:30 100/62 (75) 11/05/16 20:25 Room Air 11/05/16 20:12 36.7 70 16 91/58 (69) 96 Room Air 11/05/16 16:45 Nasal Cannula 2.0 11/05/16 16:35 36.5 67 16 134/76 (95) 95 Room Air 11/05/16 15:35 36.5 59 16 130/74 (92) 97 Nasal Cannula 2.0 11/05/16 14:35 59 16 144/80 (101) 99 11/05/16 14:05 36.5 58 16 118/75 (89) 98 Nasal Cannula 2.0 11/05/16 13:35 97 Nasal Cannula 2.0 11/05/16 13:35 97 Nasal Cannula 2.0 11/05/16 13:35 36.2 68 16 134/69 (90) 97 Nasal Cannula 2.0 11/05/16 13:23 57 16 11/05/16 13:23 56 16 97 11/05/16 13:21 116/74 11/05/16 13:18 63 10 97 11/05/16 13:18 60 10 11/05/16 13:16 122/75 11/05/16 13:13 55 15 97 11/05/16 13:13 55 15 11/05/16 13:11 120/65 11/05/16 13:08 58 14 98 11/05/16 13:08 58 14 11/05/16 13:06 100/70 11/05/16 13:03 57 13 98 11/05/16 13:03 56 13 11/05/16 13:01 121/73 11/05/16 12:58 58 12 11/05/16 12:58 58 12 99 11/05/16 12:56 121/72 11/05/16 12:53 66 13 98 11/05/16 12:53 67 13 11/05/16 12:53 36.3 56 16 121/72 (83) 98 Nasal Cannula 2 11/05/16 12:52 64 18 11/05/16 12:52 64 18 98 11/05/16 12:51 120/73 11/05/16 12:47 60 13 98 11/05/16 12:47 63 13 11/05/16 12:46 121/67 11/05/16 12:42 62 13 97 11/05/16 12:42 63 13 11/05/16 12:41 118/72 11/05/16 12:37 62 12 96 11/05/16 12:37 61 12 11/05/16 12:36 123/73 11/05/16 12:32 68 12 98 11/05/16 12:32 70 12 11/05/16 12:31 60 12 11/05/16 12:31 59 12 126/70 99 11/05/16 12:26 67 20 6/28/17 12:26 68 20 127/70 98 11/05/16 12:21 35.9 77 14 135/72 98 Nasal Cannula 2 11/05/16 12:21 65 33 135/72 98 11/05/16 12:21 65 33 Physical Exam General Appearance: WD/WN, no apparent distress, + obese Eyes: normal inspection, PERRL, EOMI ENT: normal ENT inspection, hearing grossly normal, pharynx normal Neck: supple, no JVD, trachea midline Respiratory/Chest: lungs clear, normal breath sounds, no respiratory distress Cardiovascular: regular rate, rhythm, no edema, no murmur Abdomen: normal bowel sounds, non tender, soft Extremities: no pedal edema, no calf tenderness, normal capillary refill, + pertinent finding (left knee TTP) Neurologic/Psychiatric: alert, normal mood/affect, oriented x 3 Skin: normal color, warm/dry, no rash Laboratory Results Last 24 Hours Test 11/06/16 05:43 White Blood Count 13.48 K/uL Red Blood Count 3.41 M/uL Hemoglobin 10.3 g/dL Hematocrit 31.4 % Mean Corpuscular Volume 92.1 fL Mean Corpuscular Hemoglobin 30.2 pg Mean Corpuscular Hemoglobin Concent 32.8 g/dl RDW Standard Deviation 48.2 fL RDW Coefficient of Variation 14.3 % Platelet Count 182 K/uL Mean Platelet Volume 8.8 fL Sodium Level 140 mmol/L Potassium Level 3.9 mmol/L Chloride Level 108 mmol/L Carbon Dioxide Level 25 mmol/L Anion Gap 7.0 mmol/L Blood Urea Nitrogen 18 mg/dl Creatinine 0.74 mg/dl Est Creatinine Clear Calc Drug Dose 119.2 ml/min Estimated GFR () 110.6 Estimated GFR (Non- 95.4 BUN/Creatinine Ratio 24.4 Random Glucose 153 mg/dl Calcium Level 8.3 mg/dl Assessment and Plan 66 y/o male with a history of HTN, HLD, CAD s/p stent, asthma and GERD who presents s/p left TKA with Dr. Danielle on 11/05 for medical management. -Pain management, DVT prophylaxis, and PT/OT as per primary team -POD #1 Nausea, vomiting, dizziness-resolved -Likely presyncopal episode during PT -Continue to monitor HTN, CAD s/p stent--stable -Continue metoprolol tartrate 75 mg PO BID, amlodipine 5 mg PO qd, and lisinopril 40 mg PO qd HLD -Continue atorvastatin 40 mg PO qd Asthma -Continue albuterol inhaler prn GERD -Continue Zantac 150 mg PO qhs Code Status -Level I, FULL RESUSCITATION STATUS Thank you for this consultation. We will continue to follow.
[2016-11-06] MEDS: FLUTICASONE PROPIONATE NA SPR 16 GM BTL NAE SCH (20:38)
[2016-11-06] MEDS: ATORVASTATIN 40 MG TAB PO SCH (22:01)
[2016-11-06] MEDS: RANITIDINE HCL 150 MG TAB PO SCH (22:01)
[2016-11-06] MEDS: LORATADINE 10 MG TAB PO SCH (22:01)
[2016-11-07] MEDS: ACETAMINOPHEN 500 MG TAB PO SCH (05:28)
[2016-11-07 06:40] VITALS: BP 124/78; PULSE 85; TEMP 37.1; O2SAT 96
[2016-11-07 06:57] LABS: HEMATOCRIT 30.8 % (42-52); MEAN CELL VOLUME 92.2 fL (80-100); MEAN CORPUSCULAR HEMOGLOBIN 29.9 pg (25-34); MEAN CORPUSCULAR HGB CONC 32.5 g/dl (32-36); MEAN PLATELET VOLUME 9.3 fL (7.4-10.4); PLATELET COUNT 214 K/uL (130-400); RED BLOOD COUNT 3.34 M/uL (4.7-6.1)
[2016-11-07] MEDS: OXYCODONE HCL IR 5 MG TAB (IMMEDIATE RELEASE) PO PRN (07:21)
[2016-11-07 07:33] LABS: BUN/CREATININE RATIO 18.9 (10-20); CREATININE 0.77 mg/dl (0.60-1.40); POTASSIUM 3.9 mmol/L (3.5-5.1)
[2016-11-07 07:37] LABS: CALCIUM 8.8 mg/dl (8.5-10.1)
--- NOTE | 2016-11-07 07:48 | Orthopedic Progress Note ---
Orthopedic Progress Note Date of Service Nov 07, 2016. Subjective Post OP Day: 2 Reports: feeling well, pain controlled w PO medications, Denies: complaints, chest pain, SOB, nausea / vomiting, light headedness, calf pain Additional Notes: Reports no more N/V since single episode yesterday morning. Objective calves soft nontender, N/V intact, capillary refill less than 2 sec., dressing C /D/I, A&O x3, toes mobile silverlon in tact. Date Time Temp Pulse Resp B/P (MAP) Pulse Ox O2 Delivery O2 Flow Rate FiO2 11/07/16 06:40 37.1 85 16 124/78 (93) 96 Room Air 11/06/16 23:59 Room Air 11/06/16 23:03 37.1 92 16 149/78 (101) 98 Room Air 11/06/16 20:42 166/89 (114) 11/06/16 16:15 Room Air 11/06/16 15:47 36.9 81 17 133/62 (85) 98 Room Air 11/06/16 11:23 82 94 11/06/16 10:50 36.5 80 16 124/75 (91) 96 Room Air 11/06/16 08:42 77 115/66 (82) Laboratory Results 24 Hours: Test 11/07/16 06:34 Hematocrit 30.8 % Hemoglobin 10.0 g/dL Assessment & Plan Assessment: 66 yo male stable POD #2 s/p left TKA Plan: 1. Med management 2. DVT prophylaxis- ASA, SCDs 3. PT/OT 4. D/C planning- home w/ OPPT today
[2016-11-07] MEDS ORDERED: ONDA8TAB6 PO (07:52)
[2016-11-07] MEDS ORDERED: RXC5 PO (07:52)
[2016-11-07] MEDS ORDERED: ASPEC81 PO (07:52)
[2016-11-07] MEDS ORDERED: ACET-24 PO (07:52)
[2016-11-07] MEDS ORDERED: OXYSR10 PO (07:52)
--- NOTE | 2016-11-07 07:53 | Discharge Instructions ---
Discharge Instructions Date of Service Nov 07, 2016. Admission Reason for Admission: Left Knee Degenerative Joint Disease Discharge Discharge Diagnosis / Problem: Left TKA Discharge Goals Goal(s): Improve function Activity Recommendations Activity Limitations: as noted below . Instructions / Follow-Up Instructions / Follow-Up ACTIVITY RECOMMENDATIONS: SELF CARE INSTRUCTIONS AFTER TOTAL KNEE REPLACEMENT A. You may need to continue a physical therapy program after discharge from the hospital. There are several options available to you. Your doctor will assist you in selecting the best one for you. 1. An out-patient facility 2 to 3 times a week for therapy or home therapy. 2. Continue working on all exercises taught to you in the hospital. Your goals should be to increase bending of your knee to 90 degrees and beyond and to fully straighten your knee. B. You may progress at your own pace from walking with a walker or crutches to a cane; then to no assistive devices. C. Make walking a part of your daily routine. Be up as much as comfortable with rest periods throughout the day. Rest with leg elevation is very important. Use the ice wrap frequently for the first 3-4 weeks. D. There are no restrictions on activities. You may ride in a car, shop, participate in director of corporate sales and all social activities. E. Wear the long elastic stockings (SPENCER hose) 20 hours a day for 2 weeks after surgery. They can be removed several times a day for laundering and for a bath. F. You may shower, no tub baths until cleared by your doctor. SPECIAL CARE INSTRUCTIONS: VERY IMPORTANT TO READ AND REVIEW A. There are a few signs you need to watch for after you are home. Call [facility] if you notice any of the followin. Increased severe knee pain. Some pain is expected especially when you exercise. 2. Increased swelling in your leg or knee; pain or swelling of the calf muscle in either lower leg. 3. Any fluid drainage from the incision. 4. Shortness of breath or chest pain. B. Please call [facility] at if you have any concerns or questions about your operation or recovery. The doctor or his nurse will return your call promptly. C. You must take antibiotics before dental work, bladder, bowel or other surgery. Your doctor will provide you with a permanent care to carry describing this precaution. IMPORTANT: * REMEMBER TO TAKE ASPIRIN, 81 MG, TWICE DAILY FOR 4 WEEKS UNLESS OTHERWISE DIRECTED. THIS IS YOUR BLOOD THINNER. * HIGH RISK PATIENTS MAY BE PRESCRIBED A STRONGER BLOOD THINNER. THIS WILL BE PROVIDED AT DISCHARGE. * CALL IF INCREASED PAIN, REDNESS, DRAINAGE OR FEVER GREATER THAT 101. * WEAR SPENCER HOSE 20 HOURS PER DAY FOR 2 WEEKS. * YOU MAY HAVE A LARGE BAND-AID LIKE DRESSING (SILVERON). THIS WILL REMAIN ON YOUR INCISION FOR 7 DAYS, THEN CAN BE REMOVED. IF INCISION IS LEAKING THROUGH DRESSING, CALL THE OFFICE . FOLLOW UP VISIT: If appointment is not already scheduled: Please call [facility] to make a follow-up appointment for 2 weeks after your surgery at . Current Hospital Diet Patient's current hospital diet: Regular Diet Discharge Diet Recommended Diet: Regular Diet Procedures Procedures Performed: Left Total Knee Arthroplasty Pending Studies Studies pending at discharge: no Laboratory Results Hemoglobin A1c Test 09/16/16 14:55 Range/Units Estimated Average Glucose 123 mg/dl Hemoglobin A1c 5.9 H 4.5-5.6 % Lipid Panel Test 08/14/16 12:59 Range/Units Triglycerides Level 64 0-150 mg/dl Cholesterol Level 106 0-200 mg/dl HDL Cholesterol 67 mg/dl Cholesterol/HDL Ratio 1.6 LDL Cholesterol, Calculated 26 mg/dl Medical Emergencies . Who to Call and When: Medical Emergencies: If at any time you feel your situation is an emergency, please call 911 immediately. . Non-Emergent Contact Non-Emergency issues call your: Primary Care Provider . "Provider Documentation" section prepared by Royce Armendariz. . VTE Core Measure Inpt VTE Proph given/why not?: Other Anticoagulation (asa), T.E.DDale Hernandez, SCD's [place] Drug Monitoring Program Search Results: patient reviewed within database, no issues identified
[2016-11-07 08:08] VITALS: BP 131/70; PULSE 82
[2016-11-07] MEDS: AMLODIPINE BESYLATE 5 MG TAB PO SCH (08:10)
[2016-11-07] MEDS: MULTIVITAMIN TAB PO SCH (08:10)
[2016-11-07] MEDS: METOPROLOL TARTRATE 25 MG TAB PO SCH (08:11)
[2016-11-07] MEDS: OXYCODONE HCL 10 MG TABCR (OXYCONTIN) PO SCH (08:11)
[2016-11-07] MEDS: PANTOprazole SOD 40 MG TAB PO SCH (08:12)
[2016-11-07] MEDS ORDERED: LISINOPRIL 40 MG TAB PO SCH (09:00)
[2016-11-07] MEDS: DOCUSATE SODIUM 100 MG CAP PO SCH (09:37)
[2016-11-07] MEDS: ASPIRIN 81 MG ECTAB PO SCH (09:38)
[2016-11-07 11:19] VITALS: BP 131/70; PULSE 82; TEMP 37.1; O2SAT 96
--- NOTE | 2016-11-07 12:26 | Hospitalist Progress Note ---
Hospitalist Progress Note Date of Service Nov 07, 2016. (Laura Coronel ., CHENCHOC) Subjective Pt evaluation today including: conversation w/ patient, physical exam, chart review, review of inpatient medication list Pain: Managed with PO meds PO Intake: Tolerating PO diet Voiding: no voiding problems Patient reports feeling well. His pain is now better controlled with immediate and extended release pain mediations. He has not had any more nausea, vomiting , or dizziness. He did physical therapy today without any issues. He is eating and urinating without difficulties. He is passing gas but has not had a bowel movement yet. He does admit to feeling wheezy intermittently. The patient denies fevers, chills, sweats, chest pain, palpitations, claudication, cough, shortness of breath, nausea, vomiting, abdominal pain, dysuria, hematuria , urinary retention, paralysis, weakness, numbness and tingling. Additional Comments: See HPI for pertinent positives and negatives. All other systems reviewed and negative. (Laura Coronel ., MARIAMA-C) Objective Vital Signs Date Time Temp Pulse Resp B/P (MAP) Pulse Ox O2 Delivery O2 Flow Rate FiO2 11/07/16 11:19 37.1 82 16 96 Room Air 11/07/16 08:08 82 131/70 (90) 11/07/16 07:15 Room Air 11/07/16 06:40 37.1 85 16 124/78 (93) 96 Room Air 11/06/16 23:59 Room Air 11/06/16 23:03 37.1 92 16 149/78 (101) 98 Room Air 11/06/16 20:42 166/89 (114) 11/06/16 16:15 Room Air 11/06/16 15:47 36.9 81 17 133/62 (85) 98 Room Air (Laura Coronel ., MARIAMA-C) Physical Exam Notes: General Appearance: WD/WN, no apparent distress, + obese Eyes: normal inspection, PERRL, EOMI ENT: normal ENT inspection, hearing grossly normal, pharynx normal Neck: supple, no JVD, trachea midline Respiratory/Chest: +slight wheezing, normal breath sounds, no respiratory distress Cardiovascular: regular rate, rhythm, no edema, no murmur Abdomen: normal bowel sounds, non tender, soft Extremities: no pedal edema, no calf tenderness, normal capillary refill, + pertinent finding (left knee TTP) Neurologic/Psychiatric: alert, normal mood/affect, oriented x 3 Skin: normal color, warm/dry, no rash (Laura Coronel ., MARIAMA-C) Laboratory Results Last 24 Hours Test 11/07/16 06:34 White Blood Count 14.00 K/uL Red Blood Count 3.34 M/uL Hemoglobin 10.0 g/dL Hematocrit 30.8 % Mean Corpuscular Volume 92.2 fL Mean Corpuscular Hemoglobin 29.9 pg Mean Corpuscular Hemoglobin Concent 32.5 g/dl RDW Standard Deviation 48.4 fL RDW Coefficient of Variation 14.3 % Platelet Count 214 K/uL Mean Platelet Volume 9.3 fL Sodium Level 139 mmol/L Potassium Level 3.9 mmol/L Chloride Level 107 mmol/L Carbon Dioxide Level 26 mmol/L Anion Gap 6.0 mmol/L Blood Urea Nitrogen 15 mg/dl Creatinine 0.77 mg/dl Est Creatinine Clear Calc Drug Dose 114.6 ml/min Estimated GFR () 108.8 Estimated GFR (Non- 93.9 BUN/Creatinine Ratio 18.9 Random Glucose 101 mg/dl Calcium Level 8.8 mg/dl (Laura Coronel .MARIAMA-C) Assessment and Plan 66 y/o male with a history of HTN, HLD, CAD s/p stent, asthma and GERD who presents s/p left TKA with Dr. Danielle on 11/05 for medical management. -Pain management, DVT prophylaxis, and PT/OT as per primary team -POD #2 Nausea, vomiting, dizziness-resolved -Likely presyncopal episode during PT -No recurrence of event HTN, CAD s/p stent--stable -Continue metoprolol tartrate 75 mg PO BID, amlodipine 5 mg PO qd, and lisinopril 40 mg PO qd HLD -Continue atorvastatin 40 mg PO qd Asthma/wheezing -Continue albuterol inhaler prn. Pt advised to use albuterol inhaler if he is feeling wheezy GERD -Continue Zantac 150 mg PO qhs Code Status -Level I, FULL RESUSCITATION STATUS Pt. is stable from a medical standpoint, we will sign off. Clear for discharge as per primary team. (Laura Coronel ., MARIAMA-C) I agree with PA assessment and plan and have seen and examined pt myself Resting comfortably in bed VSS Labs reviewed HTN/CAD stable S/P TKA Stable from medical standpoint for discharge (Jose Bernal D.O.)
--- NOTE | 2016-11-18 10:55 | Discharge Summary ---
Orthopedic Discharge Summary Admission Date/Reason Nov 05, 2016 at 08:50 Left Knee Degenerative Joint Disease. Discharge Date/Disposition Nov 07, 2016 Home Diagnosis Principal Diagnosis: Left knee OA Secondary Diagnoses/Problems: HTN, GERD CAD Dyslipidemia Procedure(s) Performed Left TKA Consultations Medical, PT Medication Reconciliation Pre admission meds, pain meds, ASA Admission Physical Exam As per Admitting History & Physical. Hospital Course Had one episode of pre syncope, resolved w stable vitals, did well otherwise, D/ C'd POD #2. Discharge Instructions Please refer to the electronic Patient Visit Report (Discharge Instructions) for additional information.
[2017-01-06] MEDS ORDERED: COEN30CA8 PO (15:06)
[2017-01-06] MEDS ORDERED: TRAM-10 PO (15:06)
== END 2016-11-07 12:45 | disposition home or self-care (01) | DRG 470 ==
LOC: C.ACU 07:53 → C.3E 08:50 → ENRESERV 12:58
PROVIDERS: ADMIT Orthopaedic Surgery Sports Medicine; ATTEND Orthopaedic Surgery Sports Medicine
PROC: 0SRD0J9 Replacement of Left Knee Joint with Synthetic Substitute, Cemented, Open Approach (ICD-10-PCS; principal; 2016-11-05 10:00)
DX: M17.12 Unilateral primary osteoarthritis, left knee (principal); M21.162 Varus deformity, not elsewhere classified, left knee; R32 Unspecified urinary incontinence; R55 Syncope and collapse; R11.2 Nausea with vomiting, unspecified; R42 Dizziness and giddiness; J45.909 Unspecified asthma, uncomplicated; I25.10 Atherosclerotic heart disease of native coronary artery without angina pectoris; I10 Essential (primary) hypertension; E78.00 Pure hypercholesterolemia, unspecified; E78.5 Hyperlipidemia, unspecified; I65.29 Occlusion and stenosis of unspecified carotid artery; K21.9 Gastro-esophageal reflux disease without esophagitis; I25.2 Old myocardial infarction; E66.9 Obesity, unspecified; Z68.30 Body mass index [BMI] 30.0-30.9, adult; Z95.5 Presence of coronary angioplasty implant and graft; Z87.891 Personal history of nicotine dependence; Z79.2 Long term (current) use of antibiotics; Z79.82 Long term (current) use of aspirin; Z79.899 Other long term (current) drug therapy

== ENCOUNTER → 2016-11-12 | Outpatient (CLI) | payer OTHER ==
[~2016-11-12] MED LIST changes: +ACET-24 PO; -ACETAMINOPHEN 500 MG TAB PO SCH; +ASPI81TA28 PO; -BUPIVACAINE 0.5 % 5 MG/1 ML PF 10ML VIAL ONE; -BUPIVACAINE/EPINEPHRINE 0.25% 1:200,000 30 ML VIAL ONE; -CEFAZOLIN 2000 MG/60 ML D5W 60 ML IV SCH; +COEN30CA8 PO; -CeleBREX 200 MG CAP PO SCH; -DEXAMETHASONE 4 MG TAB PO SCH; -DEXAMETHASONE SOD INJ 4 MG/ML VIAL ONE; -FAMOTIDINE 20 MG TAB PO SCH; -FENTANYL CITRATE INJ 50 MCG/1 ML 2 ML VIAL ONE; -GABAPENTIN 300 MG CAP PO SCH; -LACTATED RINGER'S 1000ML 1,000 ML IV SCH; -LACTATED RINGER'S 1000ML 500 ML IV SCH; -LACTATED RINGER'S 1000ML IV SCH; -METOCLOPRAMIDE HCL 10 MG TAB PO SCH; -MIDAZOLAM HCL 1 MG/ML 2ML VIAL ONE; -MISSING PHYSICIAN SIGNATURE ON ORDER SCH; +ONDA8TAB6 PO; +OXYSR10 PO; -ROPIVACAINE 5MG/ML 30 ML 150 MG, BUPIVACAINE/EPINEPHR 0.5% MPF 30 ML, DEXAMETHASONE INJ... INFIL SCH; +RXC5 PO; +TRAM-10 PO
--- NOTE | 2016-11-12 14:39 | DIAGNOSTIC IMAGING REPORT ---
ULTRASOUND LEFT LOWER EXTREMITY VENOUS CLINICAL HISTORY: Left leg pain and swelling. COMPARISON STUDY: No priors. TECHNIQUE: Real-time, grayscale, and color Doppler sonography of the deep veins of the left lower extremity was performed from the inguinal crease to the calf. Compression and augmentation were utilized. FINDINGS: There is no sonographic evidence of deep venous thrombosis identified in the left lower extremity. The common femoral, superficial femoral, and popliteal veins are patent and normally compressible. The greater saphenous vein and the profunda femoris vein at the junction with the common femoral vein are clear. The visualized calf veins are patent. IMPRESSION: There is no sonographic evidence of deep venous thrombosis identified in the left lower extremity. Electronically signed by: David Sanchez M.D. 11/12/2016 2:38 PM Dictated Date/Time: 11/12/2016 2:37 PM
== END | disposition home or self-care (01) ==
LOC: C.ULTR 14:00
PROVIDERS: ATTEND Orthopaedic Surgery Sports Medicine
DX: M79.662 Pain in left lower leg (principal)

== ENCOUNTER 2017-02-11 07:20 | Inpatient (IN) | payer OTHER ==
[2017-01-06 15:09] VITALS: BMI 28.0
[2017-02-02 14:19] LABS: BASO % 1.7 %; BASO ABS # 0.13 K/uL (0-0.2); COMPLETE YES; EOS % 3.7 %; HEMATOCRIT 39.2 % (42-52); IG% 0.1 %; LYMPH % 42.8 %; LYMPH ABS # 3.34 K/uL (1.2-3.4); MEAN CELL VOLUME 87.9 fL (80-100); MEAN CORPUSCULAR HEMOGLOBIN 28.3 pg (25-34); MEAN CORPUSCULAR HGB CONC 32.1 g/dl (32-36); MEAN PLATELET VOLUME 9.6 fL (7.4-10.4); MONO % 10.4 %; NEUT % 41.3 %; PLATELET COUNT 242 K/uL (130-400); RED BLOOD COUNT 4.46 M/uL (4.7-6.1); WHITE BLOOD COUNT 7.81 K/uL (4.8-10.8)
[2017-02-02 14:22] LABS: URINE APPEARANCE CLEAR (CLEAR); URINE BILIRUBIN NEG (NEG); URINE COLOR DK YELLOW; URINE NITRITE NEG (NEG); URINE SPECIFIC GRAVITY 1.025 (1.000-1.030); UROBILINOGEN NEG (NEG); ZZUR CULT IF INDIC CLEAN CATCH NO
[2017-02-02 14:30] LABS: MANUAL MICROSCOPIC REQUIRED? NO; REVIEW REQ? NO
[2017-02-02 14:31] LABS: PARTIAL THROMBOPLASTIN RATIO 1.2; PROTHROMBIN TIME (PATIENT) 10.5 SECONDS (9.0-12.0)
[2017-02-02 14:32] LABS: BUN/CREATININE RATIO 18.9 (10-20); CREATININE 0.75 mg/dl (0.60-1.40); POTASSIUM 3.8 mmol/L (3.5-5.1)
[2017-02-03 06:01] LABS: ESTIMATED AVERAGE GLUCOSE 117 mg/dl; HA1C FLAG Normal (Normal)
--- NOTE | 2017-02-10 17:33 | HISTORY & PHYSICAL EXAMINATION ---
DATE OF ADMISSION: 02/11/2017 CHIEF COMPLAINT: Chronic right knee pain. HISTORY OF PRESENT ILLNESS: This is a 66-year-old male patient of Dr. Danielle, complaining of chronic right knee pain, longstanding, now progressively getting worse. The patient has been diagnosed with end-stage osteoarthritis per clinical and radiographic exams. The patient has failed conservative treatment including intraarticular injections including steroids and visco. He has failed pain medications and the use of a compressive wrap. The patient has increased pain with weightbearing activities and his pain does interfere with his activities of daily living. PAST MEDICAL HISTORY: Angina, coronary artery disease status post an [place] in 2007, hypertension, hypercholesterolemia, asthma, chronic cough, osteoarthritis, acid reflux, and hiatal hernia. SOCIAL HISTORY: Nonsmoker and nondrinker. FAMILY HISTORY: Noncontributory. REVIEW OF SYSTEMS: The patient complains of chronic right knee pain. Otherwise denies any shortness of breath, chest pain, nausea, vomiting or any other joint complaints. MEDICATIONS: 1. Metoprolol 75 mg b.i.d. 2. Amlodipine 5 mg daily. 3. Atorvastatin 40 mg daily. 4. Lisinopril 40 mg daily. 5. Aspirin 81 mg daily. 6. Fish oil 500 mg daily. 7. Nitroglycerin 0.4 mg sublingual tablet as needed. 8. ProAir RespiClick 90 mcg actuation 2 puffs every 4-6 hours p.r.n. 9. EpiPen as needed. 10. Glucosamine chondroitin daily. 11. Loratadine 10 mg as needed daily. 12. Ultram 50 mg daily. ALLERGIES: NAPROXEN, POLLEN EXTRACTS, CAT DANDER AND BEE STINGS. PHYSICAL EXAMINATION: GENERAL: Well-developed and well-nourished 66-year-old male patient in no acute distress. He is alert and oriented x3 and pleasant. HEENT: Normocephalic and atraumatic. Extraocular motions are intact. Pupils are equal and reactive to light. HEART: Regular rate and rhythm. No murmurs appreciated. LUNGS: Clear. ABDOMEN: Soft and nontender. Bowel sounds present. EXTREMITIES: Right knee reveals limited range of motion of 0-100 degrees with medial joint line tenderness. He has crepitation with passive range of motion. He has a mild effusion. NEUROLOGIC: Neurovascularly, he is intact in his right lower extremity. DIAGNOSES: Right knee end-stage osteoarthritis with a history of angina, coronary artery disease status post myocardial infarction in 2008, asthma, chronic cough, osteoarthritis, acid reflux and hiatal hernia. PLAN: The patient was advised of his diagnoses. Indications, risks, benefits, and postop course have all been reviewed. The patient wishes to proceed with a right total knee arthroplasty. Necessary consent forms, preoperative testing and clearances will be obtained.
[~2017-02-11] VITALS: Ht 182.9 cm; Wt 95.5 kg
[2017-02-11] VITALS (8 sets, daily range): BP systolic 106–145; BP diastolic 66–80; PULSE 62–104; TEMP 36.4–37.1; O2SAT 95–100; Ht 182.9 cm; Wt 95.5 kg
[~2017-02-11 07:20] MED LIST changes: +ACETAMINOPHEN 500 MG TAB PO SCH; -ASPI81TA28 PO; +ATROPINE SULFATE 0.1 MG/ML 5ML SYR IV PRN; +BUPIVACAINE 0.25% 30 ML VIAL ONE; +BUPIVACAINE 0.5 % 5 MG/1 ML PF 10ML VIAL ONE; +CEFAZOLIN 2000 MG/60 ML D5W 60 ML IV SCH; -COQ10 PO; +CeleBREX 200 MG CAP PO SCH; +DEXAMETHASONE 4 MG TAB PO SCH; -DOXY100C76 PO; +EpHEDrine SULFATE INJ 50 MG/ML AMP IV PRN; +FAMOTIDINE 20 MG TAB PO SCH; +FENTANYL CITRATE INJ 50 MCG/1 ML 2 ML VIAL IV PRN; +GABAPENTIN 300 MG CAP PO SCH; +LACTATED RINGER'S 1000ML IV SCH; +LACTATED RINGER'S 500 ML IV SCH; +METOCLOPRAMIDE HCL 10 MG TAB PO SCH; -ONDA8TAB6 PO; +ONDANSETRON INJ 2 MG/ML 2 ML VIAL IV PRN; -OXYSR10 PO; +ROPIVACAINE 5MG/ML 30 ML 150 MG, BUPIVACAINE/EPINEPHR 0.5% MPF 30 ML, DEXAMETHASONE INJ... INFIL SCH; +ROPIVACAINE 5MG/ML 30 ML 150 MG, BUPIVACAINE/EPINEPHR 0.5% MPF 30 ML, KETOROLAC TROMETH... INFIL SCH; -RXC5 PO
[2017-02-11] MEDS ORDERED: ASPI81TA28 PO (07:58)
[2017-02-11] MEDS ORDERED: MIDAZOLAM HCL 1 MG/ML 2ML VIAL ONE ×2 (08:01→08:02)
[2017-02-11] MEDS ORDERED: BACITRACIN 50000 UNIT VIAL ONE (09:54)
[2017-02-11] MEDS ORDERED: ORTHO JOINT ANESTHETIC ONE (09:54)
[2017-02-11] MEDS ORDERED: POVIDONE-IODINE OP SOLN 30 ML BTL ONE (09:54)
[2017-02-11] MEDS ORDERED: PROPOFOL IV EMULSION 10 MG/ML 20 ML VIAL IV ONE ×2 (10:41)
[2017-02-11] MEDS ORDERED: SOD PHOSPHATE/SOD BIPHOSPHATE ENEMA 132 ML BTL PR PRN (12:00)
[2017-02-11] MEDS ORDERED: ZOLPIDEM TARTRATE 5 MG TAB PO PRN (12:00)
[2017-02-11] MEDS ORDERED: NITROGLYCERIN 0.4 MG SL PER TAB CHARGE UT PRN (12:00)
[2017-02-11] MEDS ORDERED: ALBUTEROL HFA 8 GM INHALER INH PRN (12:00)
[2017-02-11] MEDS ORDERED: TRAMADOL HCL 50 MG TAB PO PRN (12:00)
[2017-02-11] MEDS ORDERED: BISACODYL 10 MG SUPP PR PRN (12:00)
[2017-02-11] MEDS ORDERED: MoRPHine SULFATE 2 MG/ML CARP IV PRN (12:00)
[2017-02-11] MEDS ORDERED: ONDANSETRON INJ 2 MG/ML 2 ML VIAL IV PRN (12:00)
[2017-02-11] MEDS ORDERED: EPINEPHRINE ADULT AUTO-INJECT 0.3 MG SYR IM SCH (12:00)
[2017-02-11] MEDS ORDERED: ALUMINUM/MAGNESIUM/SIMETH (MAALOX MAX) 30 ML UDC PO PRN (12:00)
[2017-02-11] MEDS ORDERED: MAGNESIUM HYDROXIDE SUSP 30 ML UDC PO PRN (12:00)
--- NOTE | 2017-02-11 12:01 | [facility] Post Operative Brief Note ---
Immediate Operative Summary Operative Date Feb 11, 2017. Pre-Operative Diagnosis Right Knee End Stage Osteoarthritis Post-Operative Diagnosis Right Knee End Stage Osteoarthritis Procedure(s) Performed Right Total Knee Arthroplasty Surgeon Dr. Christofer Danielle Glove Stitcher Surgeon(s) Royce Armendariz PA-C Estimated Blood Loss 5ML Findings end stage djd oa grade 4 medial ,grade 3 patellofemoral varus Specimens Permanent: A. Right Knee Bone and Tissue Drains 2 hemovac Anesthesia spinal regional orthomix Complication(s) None Disposition Recovery Room / PACU
--- NOTE | 2017-02-11 12:47 | DIAGNOSTIC IMAGING REPORT ---
R KNEE 1 OR 2 VIEWS ROUTINE CLINICAL HISTORY: Right knee degenerative joint disease. Arthroplasty. COMPARISON: Knee radiographs December 05, 2005. FINDINGS: Alignment of the total right knee arthroplasty is anatomic. There is no fracture or unexpected radiopaque foreign body. Drains and skin susana are present. IMPRESSION: Expected findings following total right knee arthroplasty. Electronically signed by: Costa Alford M.D. 02/11/2017 12:46 PM Dictated Date/Time: 02/11/2017 12:45 PM
--- NOTE | 2017-02-11 12:51 | Anesthesiology Progress Note ---
Anesthesia Post Op Note Date & Time Feb 11, 2017 at 12:51 Vital Signs Pain Intensity: 0 Vital Signs Past 12 Hours Date Time Temp Pulse Resp B/P (MAP) Pulse Ox O2 Delivery O2 Flow Rate FiO2 02/11/17 12:40 36.3 61 12 128/71 100 Nasal Cannula 2 Oxymask 02/11/17 12:30 57 14 118/71 99 Oxymask 2 02/11/17 12:20 65 16 131/69 100 Oxymask 5 02/11/17 12:10 61 16 122/69 100 Oxymask 5 02/11/17 12:00 36.7 70 18 126/69 99 Oxymask 5 02/11/17 08:04 36.8 62 18 139/80 99 Room Air Notes Mental Status: alert / awake / arousable, participated in evaluation Nausea / Vomiting: adequately controlled Pain: adequately controlled Airway Patency, RR, SpO2: stable & adequate BP & HR: stable & adequate Hydration State: stable & adequate Neuraxial Anesthesia: was administered, sensory block is resolving Anesthetic Complications: no major complications apparent
--- NOTE | 2017-02-11 12:57 | OPERATIVE REPORT ---
DATE OF OPERATION: 02/11/2017 INDICATION FOR PROCEDURE: The patient is a 66-year-old male with chronic right osteoarthritis of the knee. He has end-stage DJD medial compartment, OA, [id number] medial compartment. He had successful left knee replacement in the past. PREOPERATIVE DIAGNOSIS: Right knee endstage osteoarthritis. POSTOPERATIVE DIAGNOSIS: Same. PROCEDURE: Right total knee arthroplasty. SURGEON: Dr. Danielle. DRAW PRESS OPERATOR: Royce Armendariz PA-C. ANESTHESIA: Spinal adductor nerve block and Orthomix. OPERATIVE PROCEDURE: The patient was taken to the operating room, anesthetized under anesthesia as dictated. He was placed supine on the operating room table. Pneumatic tourniquet was placed on his right upper thigh. Right lower extremity was prepped and draped in sterile fashion. Exam demonstrated a varus knee and no pseudolaxity, range of motion 0-130. His right lower extremity was prepped and draped with ChloraPrep. I used the [employer]hew Journey 2.0, total knee arthroplasty system using Visionaire MRI templating. He was templated for a 6 femur, 6 tibia. After the leg was sterilely prepped and draped with ChloraPrep, it was elevated, exsanguinated with Esmarch bandage. Pneumatic tourniquet was raised to 325 mmHg. An anterior incision was made across the right knee. Skin incised sharply. Subcutaneous flaps were elevated. Incision was made through the medial retinaculum and extended up in the mid third of the quadriceps tendon and extended down to the medial tibial tubercle. Intra-articular findings demonstrated that the patient had [id number] in the medial compartment, anterior medial tibia surface down to bone and extension and flexion surface of the medial femoral condyle down to bone. He had grade 3 patellofemoral DJD. He also had some synovitis in the suprapatellar pouch and the gutters. To expose the knee the infrapatellar fat pad was resected. The cruciate ligaments were resected. The meniscus remnants were resected. I did a release around the medial tibial plateau, posterior medial release as well and then the femur was exposed. The custom femoral cutting block was pinned in position and distal femoral cut was made. The 5-in-1 cutting block for size 6 femur was placed. The anterior, posterior and chamfer cuts were made. Then the knee was extended and a subperiosteal peel lateral release was performed around the patella. The patella width was measured and the width was reproduced using a freehand cut technique. The patella was sized for a 35 component. The drill holes were made. The excess lateral facet was beveled off to prevent any impingement. The tibia was then subluxed. The custom tibial cutting block was pinned in position. The proximal tibial cut was made with the oscillating saw. We used the lamina kettle chipper to assess ligamentous balance in extension and flexion. The patient was still tight on the medial side relatively. At this time, the tibia was subluxed. The tibial trial was placed, it with a size 6. It was externally rotated in line with the tibial tubercle and pinned in position. The punch for the stem was used. Then the size 6 femoral trial was inserted and centered and the notch cutting devices were used and the collet was placed. We were still too tight on the medial side to place appropriate tibial components so I went ahead and used the lamina kettle chipper again, then we pie crusted the MCL until we had the appropriate ligamentous balance. Then I was able to place an 11 trial poly insert in place and the knee tracked well through full range of motion and ligaments were balanced in extension and flexion. Patella tracked centrally. The trials were removed. The anesthetic cocktail was injected. Then the knee was copiously irrigated with pulsatile lavage antibiotic solution and bacitracin. Final components were then cemented with Simplex G cement. Final components were the 6 Oxinium posterior stabilized right Journey 2.0 femoral component and the 6 tibial baseplate and the 11 mm reamer high flexed posterior stabilized poly insert and 35 mm domed patella. While the cement cured we used Betadine soak protocol. Then we irrigated out the knee with antibiotic solution with bacitracin. The 2 drains were brought out laterally and connected to a Hemovac. Then the quadriceps tendon and medial retinaculum were closed with interrupted [id number] #1 Vicryl sutures. The knee was taken through full range of motion and repair was secure. Then the subcutaneous tissues closed with interrupted 2-0 Vicryl, skin was closed with susana. A Silverlon sterile dressing was placed, tourniquet was let down and the patient tolerated the procedure well. Royce Armendariz PA-C was my medical records assistant and functioned as medical records assistant for the entire procedure. He assisted n patient positioning, prepping, draping, leg positioning, soft tissue retraction, instrument management during the procedure and he assisted in the closure of subcutaneous and skin and will participate in postoperative care of the patient. I attest to the content of the Intraoperative Record and any orders documented therein. Any exception s are noted below.
[2017-02-11] MEDS ORDERED: MoRPHine SULFATE 4 MG/ML 1 ML CARP\\VIAL IV PRN (13:30)
--- NOTE | 2017-02-11 14:56 | Medical Consult ---
Consultation Date of Consultation: Feb 11, 2017. Attending Physician: Christofer Danielle M.D. Reason for Consultation: Medical management History of Present Illness This is a 66 y/o male with a history of CAD, h/o [place] (2007) s/p stent to LAD, HTN , HLD, asthma and GERD who presents s/p right TKA with Dr. Danielle on 02/11 for medical management. The patient reports feeling well. He still has numbness in his legs bilaterally and denies any pain. He is tolerating a PO diet and has urinated without difficulty. He has not yet passed gas or had a bowel movement postoperatively. The patient denies fevers, chills, sweats, chest pain , palpitations, claudication, cough, wheezing, shortness of breath, nausea, vomiting, abdominal pain, dysuria, hematuria, urinary retention, paralysis, and weakness. Past Medical/Surgical History CAD [place] 2007 s/p stent to LAD HTN HLD Asthma GERD Family History FH: Parkinson's disease MOTHER, Onset:60 years & older FH: heart disease FATHER, Onset:56 Hypertension Social History Smoking Status: Former Smoker (quit 2007) Smokeless Tobacco Use: No Alcohol Use: none (quit 2007) Drug Use: none Marital Status: Housing Status: lives with significant other Occupation Status: retired Allergies Coded Allergies: BEE STING (Verified Allergy, Mild, ANAPHYLACTIC-WAS TREATED BY RN TELE- SUPPOSED TO BE IMMUNE, 02/11/17) Naproxen (Verified Allergy, Mild, POSSIBLE HIVES, 02/11/17) Cat Dander (Verified Allergy, Unknown, WHEEZING, ITCHY EYES WITH SOME CATS , 02/11/17) Current Inpatient Medications Current Inpatient Medications Medications (Trade) Dose Ordered Sig/Catherine Route Start Time Stop Time Status Last Admin Dose Admin Cefazolin Sodium 60 ml @ 100 mls/hr PREOP IV 02/11/17 06:00 02/11/17 18:00 02/11/17 10:03 100 MLS/HR Acetaminophen (Tylenol Tab) 1,000 mg PREOP PO 02/11/17 06:00 02/11/17 18:00 02/11/17 08:18 1,000 MG Celecoxib (CeleBREX CAP) 200 mg PREOP PO 02/11/17 06:00 02/11/17 18:00 02/11/17 08:20 200 MG Dexamethasone (Decadron Tab) 8 mg PREOP PO 02/11/17 06:00 02/11/17 18:00 02/11/17 08:19 8 MG Famotidine (Pepcid Tab) 20 mg PREOP PO 02/11/17 06:00 02/11/17 18:00 02/11/17 08:20 20 MG Gabapentin (Neurontin Cap) 300 mg PREOP PO 02/11/17 06:00 02/11/17 18:00 02/11/17 08:18 300 MG Metoclopramide HCl (Reglan Tab) 10 mg PREOP PO 02/11/17 06:00 02/11/17 18:00 02/11/17 08:20 10 MG Albuterol (Ventolin Hfa Inhaler) as directed Q6H PRN INH 02/11/17 12:00 03/13/17 11:59 Amlodipine Besylate (Norvasc Tab) 5 mg QAM PO 02/12/17 09:00 03/14/17 08:59 Atorvastatin Calcium (Lipitor Tab) 40 mg QPM PO 02/11/17 21:00 03/13/17 20:59 Fluticasone Propionate (Flonase Nasal [place]) 2 sprays QPM BÁRBARA 02/11/17 21:00 03/13/17 20:59 Lisinopril (Zestril Tab) 40 mg QAM PO 02/12/17 09:00 03/14/17 08:59 Loratadine (Claritin Tab) 10 mg QPM PO 02/11/17 21:00 03/13/17 20:59 Metoprolol Tartrate (Lopressor Tab) 75 mg BID PO 02/11/17 21:00 03/13/17 20:59 Nitroglycerin (Nitrostat Tab) 0.4 mg PRN PRN UT 02/11/17 12:00 03/13/17 11:59 [id number] Acetate (Vitamin E Cap) 100 interunit QAM PO 02/12/17 09:00 03/14/17 08:59 Potassium Chloride/Dextrose/ Sod Cl 1,000 ml @ 100 mls/hr Q10H IV 02/11/17 12:45 02/12/17 11:58 Cefazolin Sodium 2000 mg/Dextrose 60 ml @ 100 mls/hr Q8H IV 02/11/17 18:00 02/12/17 02:35 Oxycodone HCl (Roxicodone Immediate Rel Tab) 1 TABLET FOR PAIN RATING... Q4H PRN PO 02/11/17 12:00 02/25/17 11:59 Oxycodone HCl (Oxycontin Tab) 10 mg Q12 PO 02/11/17 21:00 02/25/17 20:59 Morphine Sulfate (MoRPHine SULFATE INJ) 2 mg Q2H PRN IV 02/11/17 12:00 02/25/17 11:59 Acetaminophen (Tylenol Tab) 1,000 mg Q8 PO 02/11/17 22:00 03/13/17 21:59 Magnesium Hydroxide (Milk Of Magnesia Susp) 30 ml Q6H PRN PO 02/11/17 12:00 03/13/17 11:59 Bisacodyl (Dulcolax Supp) 10 mg DAILY PRN ME 02/11/17 12:00 03/13/17 11:59 Sodium Biphosphate/ Sodium Phosphate (Fleet Enema) 132 ml DAILY PRN ME 02/11/17 12:00 03/13/17 11:59 Docusate Sodium (coLACE CAP) 100 mg BID PO 02/11/17 21:00 03/13/17 20:59 Diphenhydramine HCl (Benadryl Cap) 25 mg Q8H PRN PO 02/11/17 12:00 03/13/17 11:59 Al Hydrox/Mg Hydrox/Simethicone (Maalox Max Susp) 15 ml Q4H PRN PO 02/11/17 12:00 03/13/17 11:59 Zolpidem Tartrate (Ambien Tab) 5 mg HSZ PRN PO 02/11/17 12:00 03/13/17 11:59 Multivitamins (Multivitamin Tab) 1 tab QAM PO 02/12/17 09:00 03/14/17 08:59 Ondansetron HCl (Zofran Inj) 4 mg Q6H PRN IV 02/11/17 12:00 03/13/17 11:59 Pantoprazole Sodium (Protonix Tab) 40 mg QAM PO 02/12/17 09:00 03/14/17 08:59 Tramadol HCl (Ultram Tab) 1 tablet for pain rating... Q4H PRN PO 02/11/17 12:00 03/13/17 11:59 Aspirin (Ecotrin Tab) 81 mg BID PO 02/11/17 21:00 03/13/17 20:59 Morphine Sulfate (MoRPHine SULFATE INJ) 4 mg Q2H PRN IV 02/11/17 13:30 02/25/17 13:29 Review of Systems See HPI for pertinent positives and negatives. All other systems reviewed and negative. Physical Exam Date Time Temp Pulse Resp B/P (MAP) Pulse Ox O2 Delivery O2 Flow Rate FiO2 02/11/17 14:40 76 18 132/77 (95) 95 Room Air 02/11/17 14:11 74 18 131/76 (94) 97 Room Air 02/11/17 13:32 100 Nasal Cannula 2.0 02/11/17 12:55 62 14 136/72 100 Nasal Cannula 2 Oxymask 02/11/17 12:40 36.3 61 12 128/71 100 Nasal Cannula 2 Oxymask 02/11/17 12:30 57 14 118/71 99 Oxymask 2 02/11/17 12:20 65 16 131/69 100 Oxymask 5 02/11/17 12:10 61 16 122/69 100 Oxymask 5 02/11/17 12:00 36.7 70 18 126/69 99 Oxymask 5 02/11/17 08:04 36.8 62 18 139/80 99 Room Air General appearance: Well-developed, well-nourished, no apparent distress Head: Normocephalic, atraumatic Eyes: Normal inspection, PERRL, EOMI ENT: Normal ENT inspection, hearing grossly normal, pharynx normal Neck: Supple, no JVD, trachea midline Respiratory/Chest: Lungs clear to auscultation, normal breath sounds, no respiratory distress Cardiovascular: Regular rate & rhythm, no gallop, no murmur Abdomen/GI: Normal bowel sounds, non-tender, soft Extremities/Musculoskeletal: +RLE wrapped in sandeep bandage. Limited ROM of lower extremities but sensation intact. Normal inspection, no calf tenderness, no pedal edema Neurological/Psych: Alert, normal mood/affect, oriented x 3 Skin: Normal color, warm/dry, no rash Assessment & Plan 66 y/o male with a history of CAD, h/o [place] (2007) s/p stent to LAD, HTN, HLD, asthma and GERD who presents s/p right TKA with Dr. Danielle on 02/11 for medical management. S/p R TKA--POD #0 -Pain management, DVT prophylaxis, and PT/OT as per primary team -AVSS. Still numb from anesthesia, no complaints -CBC and PRP pending CAD, h/o [place], HTN, HLD--stable -ASA per ortho for DVT ppx -Hold lisinopril until renal function checked/stable -Continue Lopressor 75 mg PO BID, Norvasc 5 mg PO qd and Lipitor 40 mg PO hs -Cover with hydralazine 10 mg IV q6h prn SBP >180 Asthma -Continue albuterol inhaler q6h prn SOB/wheezing GERD -Zantac held, given Protonix 40 mg PO qd per primary team Code Status -Level I, FULL RESUSCITATION STATUS Thank you for this consultation. We will continue to follow. Resident Physician Supervision Note: Pt seen/evaluated independently. I discussed the case with the PA and agree with the findings and plan as documented in the note. Any exceptions or clarifications are listed here: 66 y/o M Hx CAD - [place] 2008 - LAD stent, HTN, HLD, asthma and GERD - post R TKA Pt is recovering well post-op - denies pain, SOB, CP, N/V AAO x 3 S1,2 R CTAB NT, ND No CCE P: Placed on ASA for DVT prophylaxis No evidence of ACS - cont B jayden, ASA - presumably statin intolerant as he takes fish oil only Pt would like Tramadol as option specifically so we will add to meds Med service will follow pending DC Documented By: Jerry Alvarez
[2017-02-11] MEDS ORDERED: HydrALAZINE HCL 20 MG/ML VIAL IV. PRN (15:00)
[2017-02-11] MEDS: D5W AND 1/2NSS + 20MEQ KCL 1,000 ML IV SCH ×2 (15:12→22:24)
[2017-02-11 15:33] LABS: HEMATOCRIT 37.2 % (42-52); MEAN CELL VOLUME 86.7 fL (80-100); MEAN CORPUSCULAR HEMOGLOBIN 28.2 pg (25-34); MEAN CORPUSCULAR HGB CONC 32.5 g/dl (32-36); MEAN PLATELET VOLUME 9.1 fL (7.4-10.4); PLATELET COUNT 198 K/uL (130-400); RED BLOOD COUNT 4.29 M/uL (4.7-6.1); WHITE BLOOD COUNT 7.76 K/uL (4.8-10.8)
[2017-02-11 16:04] LABS: BUN/CREATININE RATIO 15.6 (10-20); CREATININE 0.94 mg/dl (0.60-1.40)
[2017-02-11] MEDS: CEFAZOLIN IV 2,000 MG in DEXTROSE 5% 50ML 50 ML IV SCH (19:07)
[2017-02-11] MEDS: OXYCODONE HCL IR 5 MG TAB (IMMEDIATE RELEASE) PO PRN ×2 (19:21→23:42)
[2017-02-11] MEDS: FLUTICASONE PROPIONATE NA SPR 16 GM BTL NAE SCH (21:00)
[2017-02-11] MEDS: OXYCODONE HCL 10 MG TABCR (OXYCONTIN) PO SCH (21:25)
[2017-02-11] MEDS: ATORVASTATIN 40 MG TAB PO SCH (21:26)
[2017-02-11] MEDS: ACETAMINOPHEN 500 MG TAB PO SCH (21:26)
[2017-02-11] MEDS: ASPIRIN 81 MG ECTAB PO SCH (21:27)
[2017-02-11] MEDS: LORATADINE 10 MG TAB PO SCH (21:27)
[2017-02-11] MEDS: DOCUSATE SODIUM 100 MG CAP PO SCH (21:27)
[2017-02-11] MEDS: METOPROLOL TARTRATE 25 MG TAB PO SCH (21:28)
[2017-02-12] MEDS: CEFAZOLIN IV 2,000 MG in DEXTROSE 5% 50ML 50 ML IV SCH (01:59)
[2017-02-12 03:05] VITALS: BP 117/70; PULSE 65; TEMP 36.8; O2SAT 98
[2017-02-12] MEDS: OXYCODONE HCL IR 5 MG TAB (IMMEDIATE RELEASE) PO PRN ×5 (03:41→22:04)
[2017-02-12] MEDS: ACETAMINOPHEN 500 MG TAB PO SCH ×3 (06:01→22:03)
[2017-02-12 06:18] LABS: HEMATOCRIT 32.7 % (42-52); MEAN CELL VOLUME 87.2 fL (80-100); MEAN CORPUSCULAR HEMOGLOBIN 27.5 pg (25-34); MEAN CORPUSCULAR HGB CONC 31.5 g/dl (32-36); MEAN PLATELET VOLUME 9.1 fL (7.4-10.4); PLATELET COUNT 207 K/uL (130-400); RED BLOOD COUNT 3.75 M/uL (4.7-6.1); WHITE BLOOD COUNT 16.82 K/uL (4.8-10.8)
[2017-02-12 07:05] LABS: BUN/CREATININE RATIO 20.6 (10-20); CALCIUM 8.1 mg/dl (8.5-10.1); CREATININE 0.71 mg/dl (0.60-1.40); POTASSIUM 4.7 mmol/L (3.5-5.1)
[2017-02-12 07:36] VITALS: BP 119/70; PULSE 65; TEMP 36.9; O2SAT 97
--- NOTE | 2017-02-12 08:21 | Orthopedic Progress Note ---
Orthopedic Progress Note Date of Service Feb 12, 2017. Subjective Post OP Day: 1 Reports: feeling well, Denies: complaints, chest pain, SOB, nausea / vomiting, light headedness, calf pain Objective calves soft nontender, N/V intact, capillary refill less than 2 sec., dressing C /D/I, A&O x3, toes mobile Date Time Temp Pulse Resp B/P (MAP) Pulse Ox O2 Delivery O2 Flow Rate FiO2 02/12/17 07:36 36.9 65 19 119/70 (86) 97 Room Air 02/12/17 03:05 36.8 65 18 117/70 (86) 98 Room Air 02/11/17 23:45 Room Air 02/11/17 23:35 36.6 67 16 106/66 (79) 98 Room Air 02/11/17 20:04 37.1 104 18 125/68 (87) 97 Room Air 02/11/17 16:41 37.0 87 18 145/77 (99) 97 Room Air 02/11/17 15:40 37.0 75 18 140/79 (99) 96 Room Air 02/11/17 15:20 Room Air 02/11/17 14:40 76 18 132/77 (95) 95 Room Air 02/11/17 14:11 74 18 131/76 (94) 97 Room Air 02/11/17 13:32 100 Nasal Cannula 2.0 02/11/17 13:10 36.4 62 14 127/73 (91) 100 Nasal Cannula 02/11/17 12:55 62 14 136/72 100 Nasal Cannula 2 Oxymask 02/11/17 12:40 36.3 61 12 128/71 100 Nasal Cannula 2 Oxymask 02/11/17 12:30 57 14 118/71 99 Oxymask 2 02/11/17 12:20 65 16 131/69 100 Oxymask 5 02/11/17 12:10 61 16 122/69 100 Oxymask 5 02/11/17 12:00 36.7 70 18 126/69 99 Oxymask 5 Laboratory Results 24 Hours: Test 02/11/17 15:13 02/12/17 05:57 Hematocrit 37.2 % 32.7 % Hemoglobin 12.1 g/dL 10.3 g/dL Assessment & Plan Assessment: POD #1, Right TKA Plan: PT/ OT DVT proph- ASA D/C planning- Home w OPPT As per medicine Inhouse Planning Pain Management: Oxycontin, [place], Morphine, PO Tylenol, Oxy IR DVT Prophylaxis: TEDs, SCDs, ASA Discharge Planning Discharge Planning: home with oppt Pain Management: Oxycontin, PO Tylenol, Oxy IR DVT Prophylaxis: TEDs, ASA Therapy: Physical Therapy, Occupational Therapy
[2017-02-12] MEDS: DOCUSATE SODIUM 100 MG CAP PO SCH ×2 (08:22→20:42)
[2017-02-12] MEDS: D5W AND 1/2NSS + 20MEQ KCL 1,000 ML IV SCH (08:22)
[2017-02-12] MEDS: ASPIRIN 81 MG ECTAB PO SCH ×2 (08:22→20:42)
[2017-02-12] MEDS: METOPROLOL TARTRATE 25 MG TAB PO SCH ×2 (08:23→20:43)
[2017-02-12] MEDS: TOCOPHERYL, DL-ALPHA 100 INTERUNIT CAP PO SCH (08:23)
[2017-02-12] MEDS: PANTOprazole SOD 40 MG TAB PO SCH (08:23)
[2017-02-12] MEDS: MULTIVITAMIN TAB PO SCH (08:23)
[2017-02-12] MEDS: OXYCODONE HCL 10 MG TABCR (OXYCONTIN) PO SCH ×2 (08:24→20:40)
[2017-02-12] MEDS: AMLODIPINE BESYLATE 5 MG TAB PO SCH (08:24)
[2017-02-12] MEDS ORDERED: LISINOPRIL 40 MG TAB PO SCH (09:00)
--- NOTE | 2017-02-12 09:36 | Progress Note ---
Subjective Date of Service: Feb 12, 2017. Subjective Pt evaluation today including: conversation w/ patient, physical exam, lab review, review of inpatient medication list Pain: right knee, controlled PO Intake: adequate Voiding: no voiding problems patient doing well, no CP or SOB eating well, no nausea, + flatus participating in therapy reviewed labs, Cr stable, Hb dropped by 2gm to 10.2 Review of Systems Musculoskeletal: + joint pain (right knee) All Other Systems: Reviewed and Negative Medications Current Inpatient Medications Medications (Trade) Dose Ordered Sig/Catherine Route Start Time Stop Time Status Last Admin Dose Admin Albuterol (Ventolin Hfa Inhaler) as directed Q6H PRN INH 02/11/17 12:00 03/13/17 11:59 Amlodipine Besylate (Norvasc Tab) 5 mg QAM PO 02/12/17 09:00 03/14/17 08:59 02/12/17 08:24 5 MG Atorvastatin Calcium (Lipitor Tab) 40 mg QPM PO 02/11/17 21:00 03/13/17 20:59 02/11/17 21:26 40 MG Fluticasone Propionate (Flonase Nasal [place]) 2 sprays QPM BÁRBARA 02/11/17 21:00 03/13/17 20:59 Lisinopril (Zestril Tab) 40 mg QAM PO 02/12/17 09:00 03/14/17 08:59 Future Hold Loratadine (Claritin Tab) 10 mg QPM PO 02/11/17 21:00 03/13/17 20:59 02/11/17 21:27 10 MG Metoprolol Tartrate (Lopressor Tab) 75 mg BID PO 02/11/17 21:00 03/13/17 20:59 02/12/17 08:23 75 MG Nitroglycerin (Nitrostat Tab) 0.4 mg PRN PRN UT 02/11/17 12:00 03/13/17 11:59 [id number] Acetate (Vitamin E Cap) 100 interunit QAM PO 02/12/17 09:00 03/14/17 08:59 02/12/17 08:23 100 INTERUNIT Potassium Chloride/Dextrose/ Sod Cl 1,000 ml @ 100 mls/hr Q10H IV 02/11/17 12:45 02/12/17 11:58 02/12/17 08:22 100 MLS/HR Oxycodone HCl (Roxicodone Immediate Rel Tab) 1 TABLET FOR PAIN RATING... Q4H PRN PO 02/11/17 12:00 02/25/17 11:59 02/12/17 08:25 10 MG Oxycodone HCl (Oxycontin Tab) 10 mg Q12 PO 02/11/17 21:00 02/25/17 20:59 02/12/17 08:24 10 MG Morphine Sulfate (MoRPHine SULFATE INJ) 2 mg Q2H PRN IV 02/11/17 12:00 02/25/17 11:59 Acetaminophen (Tylenol Tab) 1,000 mg Q8 PO 02/11/17 22:00 03/13/17 21:59 02/12/17 06:01 1,000 MG Magnesium Hydroxide (Milk Of Magnesia Susp) 30 ml Q6H PRN PO 02/11/17 12:00 03/13/17 11:59 Bisacodyl (Dulcolax Supp) 10 mg DAILY PRN [place] 02/11/17 12:00 03/13/17 11:59 Sodium Biphosphate/ Sodium Phosphate (Fleet Enema) 132 ml DAILY PRN [place] 02/11/17 12:00 03/13/17 11:59 Docusate Sodium (coLACE CAP) 100 mg BID PO 02/11/17 21:00 03/13/17 20:59 02/12/17 08:22 100 MG Diphenhydramine HCl (Benadryl Cap) 25 mg Q8H PRN PO 02/11/17 12:00 03/13/17 11:59 Al Hydrox/Mg Hydrox/Simethicone (Maalox Max Susp) 15 ml Q4H PRN PO 02/11/17 12:00 03/13/17 11:59 Zolpidem Tartrate (Ambien Tab) 5 mg HSZ PRN PO 02/11/17 12:00 03/13/17 11:59 Multivitamins (Multivitamin Tab) 1 tab QAM PO 02/12/17 09:00 03/14/17 08:59 02/12/17 08:23 1 TAB Ondansetron HCl (Zofran Inj) 4 mg Q6H PRN IV 02/11/17 12:00 03/13/17 11:59 Pantoprazole Sodium (Protonix Tab) 40 mg QAM PO 02/12/17 09:00 03/14/17 08:59 02/12/17 08:23 40 MG Tramadol HCl (Ultram Tab) 1 tablet for pain rating... Q4H PRN PO 02/11/17 12:00 03/13/17 11:59 Aspirin (Ecotrin Tab) 81 mg BID PO 02/11/17 21:00 03/13/17 20:59 02/12/17 08:22 81 MG Morphine Sulfate (MoRPHine SULFATE INJ) 4 mg Q2H PRN IV 02/11/17 13:30 02/25/17 13:29 Hydralazine HCl (HydrALAZINE INJ) 10 mg Q6H PRN IV. 02/11/17 15:00 03/13/17 14:59 Objective Vital Signs Date Time Temp Pulse Resp B/P (MAP) Pulse Ox O2 Delivery O2 Flow Rate FiO2 02/12/17 07:36 36.9 65 19 119/70 (86) 97 Room Air 02/12/17 03:05 36.8 65 18 117/70 (86) 98 Room Air 02/11/17 23:45 Room Air 02/11/17 23:35 36.6 67 16 106/66 (79) 98 Room Air 02/11/17 20:04 37.1 104 18 125/68 (87) 97 Room Air 02/11/17 16:41 37.0 87 18 145/77 (99) 97 Room Air 02/11/17 15:40 37.0 75 18 140/79 (99) 96 Room Air 02/11/17 15:20 Room Air 02/11/17 14:40 76 18 132/77 (95) 95 Room Air 02/11/17 14:11 74 18 131/76 (94) 97 Room Air 02/11/17 13:32 100 Nasal Cannula 2.0 02/11/17 13:10 36.4 62 14 127/73 (91) 100 Nasal Cannula 02/11/17 12:55 62 14 136/72 100 Nasal Cannula 2 Oxymask 02/11/17 12:40 36.3 61 12 128/71 100 Nasal Cannula 2 Oxymask 02/11/17 12:30 57 14 118/71 99 Oxymask 2 02/11/17 12:20 65 16 131/69 100 Oxymask 5 02/11/17 12:10 61 16 122/69 100 Oxymask 5 02/11/17 12:00 36.7 70 18 126/69 99 Oxymask 5 Physical Exam General Appearance: WD/WN, no apparent distress Eyes: normal inspection, EOMI, sclerae normal Neck: supple, no adenopathy, no JVD, trachea midline Respiratory/Chest: chest non-tender, lungs clear, normal breath sounds, no respiratory distress, no accessory muscle use Cardiovascular: regular rate, rhythm, no edema, no gallop, no JVD, no murmur Abdomen: normal bowel sounds, non tender, soft, no organomegaly Extremities: no pedal edema, no calf tenderness, normal capillary refill, pelvis stable, + pertinent finding (right knee tender, swollen, decreased ROM) Neurologic/Psychiatric: paste mixer II-XII nml as tested, no motor/sensory deficits, alert, normal mood/affect, oriented x 3 Skin: normal color, warm/dry, no rash Laboratory Results Last 24 Hours Test 02/11/17 15:13 02/12/17 05:57 White Blood Count 7.76 K/uL 16.82 K/uL Red Blood Count 4.29 M/uL 3.75 M/uL Hemoglobin 12.1 g/dL 10.3 g/dL Hematocrit 37.2 % 32.7 % Mean Corpuscular Volume 86.7 fL 87.2 fL Mean Corpuscular Hemoglobin 28.2 pg 27.5 pg Mean Corpuscular Hemoglobin Concent 32.5 g/dl 31.5 g/dl RDW Standard Deviation 49.8 fL 51.0 fL RDW Coefficient of Variation 15.6 % 16.0 % Platelet Count 198 K/uL 207 K/uL Mean Platelet Volume 9.1 fL 9.1 fL Sodium Level 141 mmol/L 143 mmol/L Potassium Level 4.0 mmol/L 4.7 mmol/L Chloride Level 110 mmol/L 110 mmol/L Carbon Dioxide Level 22 mmol/L 26 mmol/L Anion Gap 9.0 mmol/L 7.0 mmol/L Blood Urea Nitrogen 15 mg/dl 15 mg/dl Creatinine 0.94 mg/dl 0.71 mg/dl Est Creatinine Clear Calc Drug Dose 91.4 ml/min 121.0 ml/min Estimated GFR () 96.8 112.5 Estimated GFR (Non- 83.6 97.1 BUN/Creatinine Ratio 15.6 20.6 Random Glucose 262 mg/dl 142 mg/dl Calcium Level 9.0 mg/dl 8.1 mg/dl Hepatitis C Antibody Screen NEG Assessment and Plan 66 y/o male with a history of CAD, h/o [place] (2007) s/p stent to LAD, HTN, HLD, asthma and GERD who presents s/p right TKA with Dr. Danielle on 02/11 for medical management. S/p R TKA--POD #1 -Pain management, DVT prophylaxis, and PT/OT as per primary team - plan for home with outpatient PT - stable for d/c from medical perspective Acute blood loss anemia from surgery - Hb down to 10.2 from 12.1, monitor further - transfusion per orthopedics, at this point there would be no indication unless < 7.0 CAD, h/o [place], HTN, HLD--stable -ASA per ortho for DVT ppx -resume Lisinopril tomorrow since Cr stable, BP is normal so will hold starting today -Continue Lopressor 75 mg PO BID, Norvasc 5 mg PO qd and Lipitor 40 mg PO hs -Cover with hydralazine 10 mg IV q6h prn SBP >180 Asthma -Continue albuterol inhaler q6h prn SOB/wheezing GERD -Zantac held, given Protonix 40 mg PO qd per primary team Code Status -Level I, FULL RESUSCITATION STATUS labs and vitals stable, will sign off, please page [phone] for any new issues
[2017-02-12 10:09] VITALS: BP 152/81; PULSE 67; O2SAT 97
--- NOTE | 2017-02-12 10:51 | Anesthesiology Progress Note ---
Anesthesia Post Op Note Date & Time Feb 12, 2017 at 10:50 Vital Signs Pain Intensity: 8.0 Vital Signs Past 12 Hours Date Time Temp Pulse Resp B/P (MAP) Pulse Ox O2 Delivery O2 Flow Rate FiO2 02/12/17 07:36 36.9 65 19 119/70 (86) 97 Room Air 02/12/17 03:05 36.8 65 18 117/70 (86) 98 Room Air 02/11/17 23:45 Room Air 02/11/17 23:35 36.6 67 16 106/66 (79) 98 Room Air Notes Mental Status: alert / awake / arousable, participated in evaluation Pt Amnestic to Procedure: Yes Nausea / Vomiting: adequately controlled Pain: adequately controlled Airway Patency, RR, SpO2: stable & adequate BP & HR: stable & adequate Hydration State: stable & adequate Neuraxial Anesthesia: was administered, sensory block resolved Anesthetic Complications: no major complications apparent
[2017-02-12 15:12] VITALS: BP 110/65; PULSE 68; TEMP 36.8; O2SAT 97
[2017-02-12] MEDS: FLUTICASONE PROPIONATE NA SPR 16 GM BTL NAE SCH (20:40)
[2017-02-12] MEDS: ATORVASTATIN 40 MG TAB PO SCH (20:42)
[2017-02-12] MEDS: LORATADINE 10 MG TAB PO SCH (20:47)
[2017-02-12 23:28] VITALS: BP 107/65; PULSE 72; TEMP 36.9; O2SAT 99
[2017-02-13] MEDS: OXYCODONE HCL IR 5 MG TAB (IMMEDIATE RELEASE) PO PRN ×3 (03:05→11:06)
[2017-02-13] MEDS: ACETAMINOPHEN 500 MG TAB PO SCH (05:36)
[2017-02-13 06:59] LABS: HEMATOCRIT 28.6 % (42-52); MEAN CELL VOLUME 86.9 fL (80-100); MEAN CORPUSCULAR HEMOGLOBIN 27.4 pg (25-34); MEAN CORPUSCULAR HGB CONC 31.5 g/dl (32-36); MEAN PLATELET VOLUME 9.5 fL (7.4-10.4); PLATELET COUNT 192 K/uL (130-400); RED BLOOD COUNT 3.29 M/uL (4.7-6.1); WHITE BLOOD COUNT 11.54 K/uL (4.8-10.8)
[2017-02-13 07:01] VITALS: BP 128/74; PULSE 68; TEMP 37.1; O2SAT 96
[2017-02-13 07:24] LABS: BUN/CREATININE RATIO 19.6 (10-20); CALCIUM 8.1 mg/dl (8.5-10.1); CREATININE 0.73 mg/dl (0.60-1.40); POTASSIUM 4.3 mmol/L (3.5-5.1)
--- NOTE | 2017-02-13 07:43 | Orthopedic Progress Note ---
Orthopedic Progress Note Date of Service Feb 13, 2017. Subjective Post OP Day: 2 Reports: feeling well, pain controlled w PO medications, Denies: complaints, chest pain, SOB, nausea / vomiting, light headedness, calf pain Objective calves soft nontender, N/V intact, capillary refill less than 2 sec., dressing C /D/I, A&O x3, toes mobile Silverlon in tact Date Time Temp Pulse Resp B/P (MAP) Pulse Ox O2 Delivery O2 Flow Rate FiO2 02/13/17 07:01 37.1 68 16 128/74 (92) 96 Room Air 02/12/17 23:28 36.9 72 16 107/65 (79) 99 Room Air 02/12/17 19:20 Room Air 02/12/17 15:30 Room Air 02/12/17 15:12 36.8 68 18 110/65 (80) 97 Room Air 02/12/17 10:09 67 97 02/12/17 08:00 Room Air Laboratory Results 24 Hours: Test 02/13/17 06:14 Hematocrit 28.6 % Hemoglobin 9.0 g/dL Assessment & Plan Assessment: POD #2, Right TKA Plan: PT/ OT DVT proph- ASA D/C planning- Home w OPPT today As per medicine Inhouse Planning Pain Management: Oxycontin, [place], Morphine, PO Tylenol, Oxy IR DVT Prophylaxis: TEDs, SCDs, ASA Discharge Planning Discharge Planning: home with oppt Pain Management: Oxycontin, PO Tylenol, Oxy IR DVT Prophylaxis: TEDs, ASA Therapy: Physical Therapy, Occupational Therapy
[2017-02-13] MEDS ORDERED: RXC5 PO (07:46)
[2017-02-13] MEDS ORDERED: ASPEC81 PO (07:46)
[2017-02-13] MEDS ORDERED: ACET-24 PO (07:46)
[2017-02-13] MEDS ORDERED: OXYSR10 PO (07:46)
[2017-02-13] MEDS ORDERED: ONDA8TAB6 PO (07:46)
--- NOTE | 2017-02-13 07:47 | Discharge Instructions ---
Discharge Instructions Date of Service Feb 13, 2017. Admission Reason for Admission: Right Knee Degenerative Joint Disease Discharge Discharge Diagnosis / Problem: Right TKA Discharge Goals Goal(s): Improve function Activity Recommendations Activity Limitations: as noted below . Instructions / Follow-Up Instructions / Follow-Up ACTIVITY RECOMMENDATIONS: SELF CARE INSTRUCTIONS AFTER TOTAL KNEE REPLACEMENT A. You may need to continue a physical therapy program after discharge from the hospital. There are several options available to you. Your doctor will assist you in selecting the best one for you. 1. An out-patient facility 2 to 3 times a week for therapy or home therapy. 2. Continue working on all exercises taught to you in the hospital. Your goals should be to increase bending of your knee to 90 degrees and beyond and to fully straighten your knee. B. You may progress at your own pace from walking with a walker or crutches to a cane; then to no assistive devices. C. Make walking a part of your daily routine. Be up as much as comfortable with rest periods throughout the day. Rest with leg elevation is very important. Use the ice wrap frequently for the first 3-4 weeks. D. There are no restrictions on activities. You may ride in a car, shop, participate in warehouse checker and all social activities. E. Wear the long elastic stockings (SPENCER hose) 20 hours a day for 2 weeks after surgery. They can be removed several times a day for laundering and for a bath. F. You may shower, no tub baths until cleared by your doctor. SPECIAL CARE INSTRUCTIONS: VERY IMPORTANT TO READ AND REVIEW A. There are a few signs you need to watch for after you are home. Call [facility] if you notice any of the followin. Increased severe knee pain. Some pain is expected especially when you exercise. 2. Increased swelling in your leg or knee; pain or swelling of the calf muscle in either lower leg. 3. Any fluid drainage from the incision. 4. Shortness of breath or chest pain. B. Please call [facility] at if you have any concerns or questions about your operation or recovery. The doctor or his nurse will return your call promptly. C. You must take antibiotics before dental work, bladder, bowel or other surgery. Your doctor will provide you with a permanent care to carry describing this precaution. IMPORTANT: * REMEMBER TO TAKE ASPIRIN, 81 MG, TWICE DAILY FOR 4 WEEKS UNLESS OTHERWISE DIRECTED. THIS IS YOUR BLOOD THINNER. * HIGH RISK PATIENTS MAY BE PRESCRIBED A STRONGER BLOOD THINNER. THIS WILL BE PROVIDED AT DISCHARGE. * CALL IF INCREASED PAIN, REDNESS, DRAINAGE OR FEVER GREATER THAT 101. * WEAR SPENCER HOSE 20 HOURS PER DAY FOR 2 WEEKS. * YOU MAY HAVE A LARGE BAND-AID LIKE DRESSING (SILVERON). THIS WILL REMAIN ON YOUR INCISION FOR 7 DAYS, THEN CAN BE REMOVED. IF INCISION IS LEAKING THROUGH DRESSING, CALL THE OFFICE . FOLLOW UP VISIT: If appointment is not already scheduled: Please call [facility] to make a follow-up appointment for 2 weeks after your surgery at . Current Hospital Diet Patient's current hospital diet: Regular Diet Discharge Diet Recommended Diet: Regular Diet Procedures Procedures Performed: Right Total Knee Arthroplasty Pending Studies Studies pending at discharge: no Laboratory Results Hemoglobin A1c Test 02/02/17 12:52 Range/Units Estimated Average Glucose 117 mg/dl Hemoglobin A1c 5.7 H 4.5-5.6 % Medical Emergencies . Who to Call and When: Medical Emergencies: If at any time you feel your situation is an emergency, please call 911 immediately. . Non-Emergent Contact Non-Emergency issues call your: Primary Care Provider . "Provider Documentation" section prepared by Royce Armendariz. . VTE Core Measure Inpt VTE Proph given/why not?: Other Anticoagulation (asa), T.E.D. Stockings, SCD's [place] Drug Monitoring Program Search Results: patient reviewed within database, no issues identified
[2017-02-13] MEDS: OXYCODONE HCL 10 MG TABCR (OXYCONTIN) PO SCH (10:11)
[2017-02-13] MEDS: MULTIVITAMIN TAB PO SCH (10:12)
[2017-02-13] MEDS: ASPIRIN 81 MG ECTAB PO SCH (10:12)
[2017-02-13] MEDS: METOPROLOL TARTRATE 25 MG TAB PO SCH (10:12)
[2017-02-13] MEDS: PANTOprazole SOD 40 MG TAB PO SCH (10:12)
[2017-02-13] MEDS: TOCOPHERYL, DL-ALPHA 100 INTERUNIT CAP PO SCH (10:13)
[2017-02-13] MEDS: AMLODIPINE BESYLATE 5 MG TAB PO SCH (10:13)
[2017-02-13] MEDS: DOCUSATE SODIUM 100 MG CAP PO SCH (10:13)
[2017-02-13 10:28] VITALS: BP 128/74; PULSE 68; TEMP 37.1; O2SAT 96
--- NOTE | 2017-02-26 20:36 | DISCHARGE SUMMARY ---
HISTORY OF PRESENT ILLNESS: This is a 66-year-old male patient of Dr. Danielle's complaining of chronic right knee pain, long-standing, now progressively getting worse. The patient HAS failed conservative treatment and elected to proceed with a right total knee arthroplasty. POSTOPERATIVE COURSE: The patient underwent a right total knee arthroplasty on 02/11/2017. He was followed closely with medical consultation, DVT prophylaxis in the form of aspirin, physical therapy and pain control. The patient did very well with no complications postoperatively and was discharged home on postoperative day #2. PHYSICAL EXAMINATION: On discharge, right knee Silverlon dressing was clean, dry and intact. There was no redness or drainage. He has had no calf tenderness. Negative Homans sign. Neurologically and neurovascularly, he was intact in his right lower extremity. DIAGNOSES: Right knee end-stage osteoarthritis with a history of angina, coronary artery disease status post an myocardial infarction, hypertension, hypercholesterolemia, asthma, chronic cough, osteoarthritis, acid reflux and hiatal hernia. PLAN: The patient was discharged home with outpatient physical therapy on postoperative day #2. He will attend physical therapy as an outpatient. He will continue with preadmission medications with the addition of pain control. He will continue on aspirin twice daily for DVT prophylaxis and will follow up with Dr. Danielle as an outpatient.
== END 2017-02-13 12:12 | disposition home or self-care (01) | DRG 470 ==
LOC: C.ACU 07:20 → C.3E 09:32 → ENRESERV 12:54
PROVIDERS: ADMIT Orthopaedic Surgery Sports Medicine; ATTEND Orthopaedic Surgery Sports Medicine
PROC: 0SRC0J9 Replacement of Right Knee Joint with Synthetic Substitute, Cemented, Open Approach (ICD-10-PCS; principal; 2017-02-11 09:40)
DX: M17.11 Unilateral primary osteoarthritis, right knee (principal); D62 Acute posthemorrhagic anemia; I25.10 Atherosclerotic heart disease of native coronary artery without angina pectoris; I25.2 Old myocardial infarction; I10 Essential (primary) hypertension; E78.00 Pure hypercholesterolemia, unspecified; J45.909 Unspecified asthma, uncomplicated; R05 Cough; K21.9 Gastro-esophageal reflux disease without esophagitis; Z79.82 Long term (current) use of aspirin; Z82.0 Family history of epilepsy and other diseases of the nervous system; Z87.891 Personal history of nicotine dependence; Z82.49 Family history of ischemic heart disease and other diseases of the circulatory system

== ENCOUNTER → 2017-08-13 | Outpatient (CLI) | payer OTHER ==
[~2017-08-13] MED LIST changes: -ACETAMINOPHEN 500 MG TAB PO SCH; -ASPEC81 PO; +ASPI-320 PO; -ATROPINE SULFATE 0.1 MG/ML 5ML SYR IV PRN; -BUPIVACAINE 0.25% 30 ML VIAL ONE; -BUPIVACAINE 0.5 % 5 MG/1 ML PF 10ML VIAL ONE; -CEFAZOLIN 2000 MG/60 ML D5W 60 ML IV SCH; -CeleBREX 200 MG CAP PO SCH; -DEXAMETHASONE 4 MG TAB PO SCH; -EpHEDrine SULFATE INJ 50 MG/ML AMP IV PRN; -FAMOTIDINE 20 MG TAB PO SCH; -FENTANYL CITRATE INJ 50 MCG/1 ML 2 ML VIAL IV PRN; -GABAPENTIN 300 MG CAP PO SCH; -LACTATED RINGER'S 1000ML IV SCH; -LACTATED RINGER'S 500 ML IV SCH; -METOCLOPRAMIDE HCL 10 MG TAB PO SCH; -OMEG10007 PO; +ONDA-170 PO; -ONDANSETRON INJ 2 MG/ML 2 ML VIAL IV PRN; +OXYSR10 PO; +RANI150T85 PO; -ROPIVACAINE 5MG/ML 30 ML 150 MG, BUPIVACAINE/EPINEPHR 0.5% MPF 30 ML, DEXAMETHASONE INJ... INFIL SCH; -ROPIVACAINE 5MG/ML 30 ML 150 MG, BUPIVACAINE/EPINEPHR 0.5% MPF 30 ML, KETOROLAC TROMETH... INFIL SCH; +RXC5 PO; -TRAM-10 PO; -ZNTT/150 PO
[2017-08-13 12:20] LABS: BASO % 1.5 %; BASO ABS # 0.12 K/uL (0-0.2); EOS % 5.5 %; EOS ABS # 0.44 K/uL (0-0.5); HEMATOCRIT 40.3 % (42-52); HEMOGLOBIN 13.1 g/dL (14.0-18.0); IG# 0.01 K/uL (0.00-0.02); LYMPH % 35.7 %; LYMPH ABS # 2.88 K/uL (1.2-3.4); MEAN CELL VOLUME 90.6 fL (80-100); MEAN CORPUSCULAR HEMOGLOBIN 29.4 pg (25-34); MEAN CORPUSCULAR HGB CONC 32.5 g/dl (32-36); MEAN PLATELET VOLUME 9.7 fL (7.4-10.4); MONO % 10.2 %; MONO ABS # 0.82 K/uL (0.11-0.59); NEUT ABS # 3.79 K/uL (1.4-6.5); PLATELET COUNT 230 K/uL (130-400); RED CELL DISTRIBUTION WIDTH CV 15.9 % (11.5-14.5); RED CELL DISTRIBUTION WIDTH SD 53.2 fL (36.4-46.3); WHITE BLOOD COUNT 8.06 K/uL (4.8-10.8)
[2017-08-13 12:28] LABS: HEMOGLOBIN A1C 5.5 % (4.5-5.6)
[2017-08-13 12:29] LABS: ALBUMIN 3.5 gm/dl (3.4-5.0); ALT/SGPT 20 U/L (12-78); AST/SGOT 15 U/L (15-37); BLOOD UREA NITROGEN 15 mg/dl (7-18); CALCIUM 9.1 mg/dl (8.5-10.1); CARBON DIOXIDE 29 mmol/L (21-32); CREATININE 0.86 mg/dl (0.60-1.40); GLUCOSE 93 mg/dl (70-99); POTASSIUM 4.2 mmol/L (3.5-5.1); SODIUM 140 mmol/L (136-145)
[2017-08-13 12:34] LABS: ALKALINE PHOSPHATASE 100 U/L (45-117); CHOLESTEROL 142 mg/dl (0-200); LDL CHOLESTEROL CALCULATED 54 mg/dl; TOTAL PROTEIN 7.3 gm/dl (6.4-8.2)
== END | disposition home or self-care (01) ==
LOC: C.LAB1850 10:24
PROVIDERS: ATTEND Internal Medicine
DX: Z00.00 Encounter for general adult medical examination without abnormal findings (principal); I25.10 Atherosclerotic heart disease of native coronary artery without angina pectoris; I10 Essential (primary) hypertension; Z11.59 Encounter for screening for other viral diseases; D12.6 Benign neoplasm of colon, unspecified; R73.01 Impaired fasting glucose

== ENCOUNTER 2023-04-09 13:46 | Observation (INO) ==
--- NOTE | 2023-04-09 14:04 | ED Triage Note ---
Date of Service April 09, 2023 History of Present Illness This patient was briefly evaluated while in triage. An abbreviated physical exam was performed. This patient is a 72-year-old Male sent over by colonoscopy for abnormal EKG showing atrial fibrillation/flutter. No known history of this. Was having elevated heart rate last week but thought it was from prednisone. No symptoms today. No chest pain. Physical Exam CONSTITUTIONAL: in no acute pain or distress, resting comfortably SKIN: pink, warm, dry CARDIAC: tachycardic rate and regular rhythm RESPIRATORY: in no respiratory distress, lungs clear to auscultation Initial orders for labs and / or imaging were placed and patient was placed in the waiting area until a bed is available. Please see further documentation for the full ED course.
--- NOTE | 2023-04-09 14:58 | XRay Report ---
XR chest 1V not portable HISTORY: 72 years-old Male Dysrhythmia COMPARISON: 03/09/2023 TECHNIQUE: PA view the chest FINDINGS: Cardiac silhouette is enlarged. No pneumothorax, pleural effusion or airspace consolidation. Bones ap pear grossly intact. IMPRESSION: No acute process. ACT 112: Negative or not required by law. The above report was generated using voice recognition software. It may contain grammatical, syntax o r spelling errors. Electronically signed by: Vinnie Hernandez M.D. 04/09/2023 2:57 PM
--- NOTE | 2023-04-09 16:16 | Emergency Department Note ---
Impression & Plan Atrial flutter with rapid ventricular response, Coronary artery disease ED Provider Note NAME: MIGDALIA GREEN AGE: 72 SEX: M : 1950 ARRIVES VIA: Walk-In INFORMANT: Patient, ED PROVIDER(S): Lucius Groves MD CHIEF COMPLAINT: Outpatient referral, abnormal EKG MEDICAL DECISION MAKING: Patient presents from the OR as the patient was pending endoscopy and was found to have possible flutter versus atrial fibrillation. Next IV was established and blood was obtained. Patient does take metoprolol at baseline. Patient was ordered Cardizem bolus. Patient still in flutter with variable block. Patient's blood work is fairly unremarkable. Chest x-ray with no acute findings. The patient is asymptomatic no chest pains currently had complained of some shortness of breath earlier. I did speak with on-call cardiology Dr. Colindres who recommended the patient stay overnight and would plan for cardioversion in the morning. Patient was started on heparin. I did speak with Dr. De Los Santos and the patient was admitted to the medicine service. Critical Care: I have personally spent 42 minutes of critical care time in direct management of this patient. This includes bedside care, interpretation of diagnostic studies, and testing, discussion with consultants, patient, and family members, and other require inpatient management activities. This 42 minutes is in excess of all separately billable procedures. Discussion w/ other healthcare providers: Dr. Colindres with cardiology Dr. De Los Santos with inpatient medicine service Prior /Outside records reviewed: I reviewed a primary care visit from Dr. Alford from March 17October patient was seen due to concern for sinusitis and bronchitis. Patient was treated with a Z-Wally. Patient was transition to Medrol Dosepak and Augmentin. Patient does have a known history of CAD hypertension hyperlipidemia. No reported history of A-fib or flutter. Patient has had a prior stent. Differential diagnosis: Benign positional vertigo, dehydration, hypovolemia, anemia, infection, hypoglycemia, electrolyte abnormalities, arrhythmia, tox among others were considered. Diagnostics, as interpreted by me: ECG: [place] atrial flutter, rate of 97, variable AV block, normal axis no obvious ST elevations. Repeat EKG interpreted by me Atrial flutter with variable block rate 130, normal axis no obvious ST elevations. Repeating EKG interpreted by me Atrial flutter with variable AV block, rate of 62, normal axis no ST elevations. Cardiac monitoring: An order was placed for continuous cardiac monitoring. The monitor shows a rate of 125 with irregular irregular and tachycardic rhythm. Patient was placed on pulse oximetry Medical decision rules: [id number] score Imaging studies: I informally interpreted the patient's chest x-ray which shows no obvious pneumonia or pneumothorax with formal report to follow. HPI: Patient presents due to concern for abnormal EKG. The patient was going for routine colonoscopy with Dr. Aldana when he was having some preprocedural testing and noted to have an irregular heart rhythm. The patient states that he did recently complete a course of steroids and antibiotics for an upper respiratory infection and did believe that at the end of the course of his steroids which she completed about a week ago he noticed his heart rate to be elevated and sometimes it would be higher or lower. Patient has had some occasional shortness of breath no cough or fever currently. Patient denies any falls or trauma. No prior history of any arrhythmia. Patient does have a known history of CAD with a stent to the LAD and does follow with Dr. Zuniga. Patient states he is compliant with his medications. No alcohol or tobacco use. PAST MEDICAL HISTORY: See Below PAST SURGICAL HISTORY: See Below SOCIAL HISTORY: See Below HOME MEDICATIONS: See Below ALLERGIES: See Below VITALS: See Below PHYSICAL EXAMINATION: GENERAL: NAD, non-toxic. Wearing glasses. EYE EXAM: Normal conjunctiva. PERRL, no anisocoria and EOM's grossly intact w/o pain. OROPHARYNX: Moist mucus membranes, grossly normal dentition. NECK: Supple, no nuchal rigidity, no adenopathy, non-tender. No signs of meningismus. FROM of the neck with good chin to chest and neck extension. No stridor. LUNGS: Clear to auscultation. Normal chest wall mechanics. HEART: Tachycardic and irregular irregular, no MRG. ABDOMEN: Abdomen soft, non-tender, no masses, no rebound or guarding. BACK: No CVA TTP. SKIN: No rashes and no bruising. UPPER EXTREMITIES: Upper extremities are grossly normal. LOWER EXTREMITIES: Grossly normal, no edema. NEURO EXAM: A&O x3, cranial nerves II-XII grossly intact, normal speech, moves all 4 extremities. Past Med/Surg History Medical History Arthritis Hx of attention deficit disorder as a child Allergy to bee sting Coronary artery disease s/p DC 2007 - had PCI to LAD Impaired fasting glucose History of colon polyps Osteoarthritis GERD (gastroesophageal reflux disease) Hearing deficit Hypertension Hyperlipidemia Asthma used inhaler 6 weeks ago when dx with bronchitis Surgical History History of cataract surgery rt/left [place] teeth removed History of total left knee replacement (TKR) October 2016 History of total right knee replacement (TKR) February 2017 Dr. Danielle Hx of vasectomy History of colonoscopy History of esophagogastroduodenoscopy (EGD) History of tonsillectomy 1957 History of cardiac cath 2007 @ [facility] [place]>1 stent placed (follows with Dr. Zuniga) Family History Father Alcohol abuse Anxiety Depression Cardiac disorder Myocardial infarction, Onset Age: 60 Hypertension Stroke, Onset Age: 60 Brother Alcohol abuse Other No family history of adverse response to anesthesia Denies family history of Ovarian cancer Prostate cancer Breast cancer Colorectal cancer Social History Smoking Status: Never smoker Tobacco Type: Pipe and Cigars Age Started Using Tobacco: 17; Age Quit Using Tobacco: 57; Cigarettes Per Day: 2-3 pipes per day; Second Hand Exposure: No; Do You Dip or Chew Tobacco: No; Hx Alcohol Use: Yes Alcohol type: beer and wine Hx Substance Use: No Preferred Language: Gibraltarian Communication Ability: Effective Visual Impairment: No Limitations Hearing Ability: Use of Hearing Aid Sociology Research Assistant Required: No Beliefs That Will Affect Care: None marital status: Current Living Situation: Spouse current occupational status: retired Feels Safe at Home: Yes Childhood Exposure to Second-Hand Smoke: Yes Dental Care, Regularly: Yes Physical Activity Frequency: Daily Seatbelt Use: always Assistive Devices: None Allergies Allergies Allergy/AdvReac Type Severity Reaction Status Date / Time bee venom protein (honey bee) Allergy Mild ANAPHYLACTIC-WAS Verified 04/09/23 18:16 TREATED BY FLAKER TENDER-SUPPOSED TO BE IMMUNE cat dander Allergy Mild WHEEZING, Verified 04/09/23 18:16 ITCHY EYES WITH SOME CATS naproxen Allergy Mild POSSIBLE Verified 04/09/23 18:16 HIVES Home Meds Home Medications Medication Instructions Recorded Confirmed acetaminophen 500 mg tablet 1,000 mg PO DAILY PRN Pain 03/29/18 04/09/23 (Acetaminophen Extra Strength) aspirin 81 mg tablet,delayed 81 mg PO QAM 03/29/18 04/09/23 release (Wei Low Dose Aspirin) coQ10 (ubiquinol) 200 mg capsule 200 mg PO QAM 03/29/18 04/09/23 fluticasone propionate 50 2 spray intranasal QPM 03/29/18 04/09/23 mcg/actuation nasal spray,suspension (Flonase Allergy Relief) multivitamin 1 tab PO QAM 03/29/18 04/09/23 omega 0-gfn-rcy-fish oil 1,000 mg 1 cap PO BID 03/29/18 04/09/23 (120 mg-180 mg) capsule (Fish Oil) cholecalciferol (vitamin D3) 25 25 mcg PO DAILY 11/27/20 04/09/23 mcg (1,000 unit) capsule CBD oil 10 mg PO BID 12/02/22 04/09/23 vit C 250 mg-vit E 200 unit-zinc 1 cap PO BID 12/02/22 04/09/23 ox 12.5 oo-zgelnq-funbbb-zeax capsule (ICaps AREDS2) Mct Wellness 1 dose PO BID 03/31/23 04/09/23 Super Beets 1 cap PO BID 03/31/23 04/09/23 amlodipine 10 mg tablet 10 mg PO QAM 03/31/23 04/09/23 atorvastatin 40 mg tablet 40 mg PO QPM 03/31/23 04/09/23 cetirizine 10 mg tablet (Zyrtec) 10 mg PO HS 04/09/23 04/09/23 famotidine 20 mg tablet (Pepcid AC) 20 mg PO HS 04/09/23 04/09/23 Previous Rx's Medication Instructions Recorded epinephrine 0.3 mg/0.3 mL 0.3 mg (0.3 mL) IM ONCE PRN 08/12/21 injection, auto-injector (EpiPen Allergic Reaction #1 ea 2-Wally) nitroglycerin 0.4 mg sublingual 0.4 mg sublingual UD PRN Angina 08/28/21 tablet #30 tabs azelastine 137 mcg (0.1 %) nasal 2 spray intranasal .COMPLEX #90 mL 11/21/22 spray aerosol albuterol sulfate 90 mcg/actuation 2 puff inhalation Q4 PRN Shortness 03/26/23 aerosol inhaler (ProAir HFA) Of Breath #8.5 grams metoprolol tartrate 50 mg tablet 75 mg (1.5 x 50 mg) PO BID #270 03/26/23 tabs irbesartan 300 mg tablet 300 mg PO QAM #90 tabs 04/06/23 apixaban 5 mg tablet (Eliquis) 5 mg PO BID 1 month #60 tabs 04/10/23 Results & Data (ED) Vital Signs Vital Signs - 24 hr 04/09/23 13:58 Temperature 36.7 C Temperature Source Temporal Artery Scan Pulse Rate 127 H Respiratory Rate 20 Respiratory Effort / Characteristics Non-Labored Spontaneous Respiratory Depth Normal Respiratory Pattern Regular Blood Pressure 166/106 H Blood Pressure Mean 126 Blood Pressure Position Sitting Pulse Oximetry 96 Oxygen Delivery Method Room Air Sepsis Recent Fever Within 48 Hours No Sepsis New/Unexplained Change in Mental Status No Sepsis Action Taken by Nursing No Action Required Home Medications Current Medication List: was personally reviewed by me Laboratory Data Attestation: I reviewed the patient's lab results. 04/11/23 05:53 04/10/23 07:16 Lab Results 04/09/23 Range/Units 16:04 WBC 6.55 (4.8-10.8) K/ul RBC 4.75 (4.70-6.10) M/uL Hgb 14.3 (14.0-18.0) g/dl Hct 44.7 (42.0-52.0) % MCV 94.1 (80.0-100.0) fL MCH 30.1 (25.0-34.0) pg MCHC 32.0 (32.0-36.0) g/dL RDW Std Deviation 48.1 H (36.4-46.3) fL RDW Coeff of Kiara 13.9 (11.5-14.5) % Plt Count 216 (130-400) K/uL MPV 9.2 L (9.4-12.4) fL Immature Gran % (Auto) 0.2 % Neut % (Auto) 51.0 % Lymph % (Auto) 35.9 % [place] % (Auto) 8.1 % Eos % (Auto) 3.4 % Baso % (Auto) 1.4 % Neut # (Auto) 3.35 (1.40-6.50) K/uL Lymph # (Auto) 2.35 (1.20-3.40) K/uL [place] # (Auto) 0.53 (0.11-0.59) K/uL Eos # (Auto) 0.22 (0.00-0.50) K/uL Baso # (Auto) 0.09 (0.00-0.20) K/uL Immature Gran # (Auto) 0.01 (0.01-0.20) K/uL Sodium 142 (136-145) mmol/L Potassium 3.3 L (3.5-5.1) mmol/L Chloride 107 (98-107) mmol/L Carbon Dioxide 26 (21-32) mmol/L Anion Gap 9 (3-11) BUN 10 (6-23) mg/dl Creatinine 0.72 (0.6-1.4) mg/dl Est Cr Clr Drug Dosing Not Reportable Est GFR ( Amer) 107.3 ml/min Est GFR (Non-Af Amer) 92.5 ml/min BUN/Creatinine Ratio 13.9 (10-20) Glucose 124 H (70-99(Fasting)) mg/dl Calcium 9.2 (8.6-10.3) mg/dl Phosphorus 2.9 (2.5-4.9) mg/dl Magnesium 2.3 (1.7-2.4) mg/dl Total Bilirubin 0.8 (0.2-1.0) mg/dl AST 23 (13-39) U/L ALT 21 (7-52) U/L Alkaline Phosphatase 95 (34-104) U/L Troponin I High Sens 7.1 (0-20) pg/ml Total Protein 7.4 (6.0-8.3) gm/dl Albumin 4.5 (3.4-5.0) gm/dl Globulin 2.9 (2.5-4.0) gm/dl Albumin/Globulin Ratio 1.6 (0.9-2) TSH 1.363 (0.300-4.500) uIu/ml Administered Medications Discontinued Medications Amlodipine Besylate ([facility]odipine Besylate 5 Mg Tab) [facility] [place]: 05/10/23 08:59 Last Admin: 04/11/23 08:24 Dose: 10 mg Documented By: Admin: 04/10/23 09:18 Dose: 10 mg Documented By: GEETHA Apixaban (Apixaban 5 Mg Tablet) 5 mg PO BID FAIZAN Stop: 05/10/23 20:59 Last Admin: 04/11/23 09:10 Dose: 5 mg Documented By: Admin: 04/10/23 21:21 Dose: 5 mg Documented By: DIEGO Aspirin (Aspirin 81 Mg Ectab) 81 mg PO QAM FAIZAN Stop: 05/10/23 08:59 Last Admin: 04/11/23 08:24 Dose: 81 mg Documented By: Admin: 04/10/23 09:18 Dose: 81 mg Documented By: GEETHA Atorvastatin Calcium (Atorvastatin 40 Mg Tab) 40 mg PO QPM FAIZAN Stop: 05/09/23 20:59 Last Admin: 04/10/23 20:36 Dose: 40 mg Documented By: Admin: 04/09/23 21:41 Dose: 40 mg Documented By: LEA Benzocaine/Butamben/Tetracaine HCl (Benzocaine/Tetracain/Butam 50 Appln/5 Gm Can) Confirm Administered Dose 50 appln EXT .STK-MED ONE Stop: 04/10/23 11:16 Last Admin: 04/10/23 12:36 Dose: Not Given Documented By: GEETHA Cetirizine HCl (Cetirizine Hcl 10 Mg Tablet) 10 mg PO HS FAIZAN Stop: 05/09/23 20:59 Last Admin: 04/10/23 20:36 Dose: 10 mg Documented By: Admin: 04/09/23 21:41 Dose: 10 mg Documented By: LEA Diltiazem HCl (Diltiazem Hcl 5 Mg/Ml 5 Ml Vial) 20 mg IV NOW STA Stop: 04/09/23 17:04 Last Admin: 04/09/23 17:06 Dose: 20 mg Documented By: GlennyGV Co-signed By: DARCI Famotidine (Famotidine 20 Mg Tab) 20 mg PO HS FAIZAN Stop: 05/09/23 20:59 Last Admin: 04/10/23 20:36 Dose: 20 mg Documented By: Admin: 04/09/23 21:41 Dose: 20 mg Documented By: LEA Heparin Sodium/Dextrose (Heparin Iv Adult Wt-Based Standard *No* Bolus Protocol) 1 each IV ONE STA; Protocol Stop: 04/09/23 18:06 Last Admin: 04/09/23 18:37 Dose: 1 each Documented By: GRACE Heparin Sodium/Dextrose (Heparin Sodium/Dextrose) 25,000 units in 500 mls @ 0 mls/hr IV .Q0M [facility]; Protocol Stop: 04/10/23 20:30 Last Admin: 04/10/23 19:11 Dose: Not Given Documented By: Titration: 04/10/23 19:10 Dose: 1,300 units/hr, 26 mls/hr Documented By: GEETHA Co-signed By: DIEGO Admin: 04/10/23 13:54 Dose: 1,300 units/hr, 26 mls/hr Documented By: GEETHA Co-signed By: PA Titration: 04/10/23 13:54 Dose: Infused Documented By: GEETHA Co-signed By: PA Titration: 04/10/23 12:10 Dose: 1,300 units/hr, 26 mls/hr Documented By: GEETHA Co-signed By: KORIB Titration: 04/10/23 09:15 Dose: 0 units/hr, 0 mls/hr Documented By: GEETHA Co-signed By: JBH Titration: 04/10/23 07:03 Dose: 1,500 units/hr, 30 mls/hr Documented By: GEETHA Co-signed By: LEA Titration: 04/10/23 01:36 Dose: 1,500 units/hr, 30 mls/hr Documented By: LEA Co-signed By: LSG Admin: 04/09/23 18:35 Dose: 1,600 units/hr, 32 mls/hr Documented By: GRACE Co-signed By: QGV Lidocaine HCl (Lidocaine 2% 2 Ml Vial/Amp(20mg/Ml)) Confirm Administered Dose 2 ml INFIL .STK-MED ONE Stop: 04/10/23 10:43 Last Admin: 04/10/23 12:35 Dose: Not Given Documented By: GEETHA Losartan Potassium (Losartan Potassium 50 Mg Tab) [facility] Protocol Stop: 05/10/23 08:59 Last Admin: 04/11/23 08:24 Dose: 100 mg Documented By: Admin: 04/10/23 09:19 Dose: 100 mg Documented By: GEETHA Metoprolol Tartrate (Metoprolol Tartrate 25 Mg Tab) 75 mg PO BID FAIZAN Stop: 05/09/23 20:59 Last Admin: 04/11/23 08:25 Dose: 75 mg Documented By: Admin: 04/10/23 20:36 Dose: 75 mg Documented By: Admin: 04/10/23 09:02 Dose: Not Given Documented By: Admin: 04/09/23 21:42 Dose: 75 mg Documented By: LEA Miscellaneous (Stop Order - Heparin Drip) 1 each N/A 2030 ONE Stop: 04/10/23 20:31 Last Admin: 04/10/23 20:36 Dose: 1 each Documented By: DIEGO Potassium Chloride (Potassium Chloride Crtab 20 Meq Tabcr) 40 meq PO NOW STA Stop: 04/09/23 18:35 Last Admin: 04/09/23 19:18 Dose: 40 meq Documented By: QGV Propofol (Propofol Iv Emulsion 10 Mg/Ml 20 Ml Vial) Confirm Administered Dose 400 mg IV .STK-MED ONE Stop: 04/10/23 10:43 Last Admin: 04/10/23 12:35 Dose: Not Given Documented By: GEETHA Imaging Data Radiologist's Impression: Chest X-Ray 04/09/23 14:04 XR chest 1V not portable HISTORY: 72 years-old Male Dysrhythmia COMPARISON: 03/09/2023 TECHNIQUE: PA view the chest FINDINGS: Cardiac silhouette is enlarged. No pneumothorax, pleural effusion or airspace consolidation. Bones appear grossly intact. IMPRESSION: No acute process. ACT 112: Negative or not required by law. The above report was generated using voice recognition software. It may contain grammatical, syntax or spelling errors. Electronically signed by: Vinnie Hernandez M.D. 04/09/2023 2:57 PM Discharge Plan Visit Data Chief Complaint: Abnormal Labs/Diagnostic Testing Stated Complaint: ABNORMAL EKG ED Provider: Lucius Groves Discharge Problem: Atrial flutter with rapid ventricular response, Coronary artery disease Patient Disposition: Admitted As Inpatient Discharge Instructions Interventions: ED Discharge Assessment Last Done: 04/09/23 19:24 Discharge Problem: Coronary artery disease Qualifiers: Coronary Disease-Associated Artery/Lesion type: [place] artery [place] vs. transplanted heart: [place] heart Associated angina: without angina Qualified Code(s): I25.10 - Atherosclerotic heart disease of [place] coronary artery without angina pectoris
[2023-04-09 16:28] LABS: Basophils # (auto) 0.09 K/uL (0.00-0.20); Basophils % (auto) 1.4 %; Eosinophils # (auto) 0.22 K/uL (0.00-0.50); Eosinophils % (auto) 3.4 %; Hematocrit (blood only) 44.7 % (42.0-52.0); Hemoglobin 14.3 g/dl (14.0-18.0); Immature Granulocytes # (auto) 0.01 K/uL (0.01-0.20); Immature Granulocytes % (auto) 0.2 %; Lymphocytes # (auto) 2.35 K/uL (1.20-3.40); Lymphocytes % (auto) 35.9 %; Mean Corpuscular Hemoglobin 30.1 pg (25.0-34.0); Mean Corpuscular Volume 94.1 fL (80.0-100.0); Mean Platelet Volume 9.2 fL (9.4-12.4); Monocytes # (auto) 0.53 K/uL (0.11-0.59); Monocytes % (auto) 8.1 %; Neutrophils # (auto) 3.35 K/uL (1.40-6.50); Platelet Count 216 K/uL (130-400); RDW Coefficient of Variation 13.9 % (11.5-14.5); RDW Standard Deviation 48.1 fL (36.4-46.3); Red Blood Count 4.75 M/uL (4.70-6.10); White Blood Count 6.55 K/ul (4.8-10.8)
[2023-04-09 16:42] LABS: Alanine Aminotransferase 21 U/L (7-52); Albumin Globulin Ratio 1.6 (0.9-2); Albumin Level 4.5 gm/dl (3.4-5.0); Alkaline Phosphatase 95 U/L (34-104); Anion Gap 9 (3-11); Aspartate Aminotransferase 23 U/L (13-39); BUN Creatinine Ratio 13.9 (10-20); Bilirubin,Total 0.8 mg/dl (0.2-1.0); Blood Urea Nitrogen 10 mg/dl (6-23); Calcium 9.2 mg/dl (8.6-10.3); Carbon Dioxide 26 mmol/L (21-32); Chloride 107 mmol/L (98-107); Est GFR (African American) 107.3 ml/min; Est GFR (Non-African American) 92.5 ml/min; Globulin 2.9 gm/dl (2.5-4.0); Glucose 124 mg/dl (70-99(Fasting)); Magnesium 2.3 mg/dl (1.7-2.4); Phosphorus 2.9 mg/dl (2.5-4.9); Potassium 3.3 mmol/L (3.5-5.1); Sodium 142 mmol/L (136-145); Total Protein 7.4 gm/dl (6.0-8.3)
[2023-04-09 16:48] LABS: Troponin I High Sensitivity 7.1 pg/ml (0-20)
[2023-04-09 16:58] LABS: Thyroid Stimulating Hormone 1.363 uIu/ml (0.300-4.500)
[2023-04-09] MEDS ORDERED: dilTIAZem HCl 5 MG/ML 5 ML VIAL IV STA ×2 (17:02→17:03)
[2023-04-09] MEDS ORDERED: Heparin IV Adult Wt-Based Standard *NO* INITIAL Bolus Protocol IV STA (18:05)
[2023-04-09] MEDS ORDERED: POTASSIUM CHLORIDE CRTAB 20 MEQ TABCR PO STA (18:34)
[2023-04-09] MEDS: HEPARIN SODIUM/DEXTROSE 25,000 UNITS/500 ML BAG IV SCH (18:35)
--- NOTE | 2023-04-09 18:51 | History & Physical Report ---
Date of Service April 09, 2023 Assessment & Plan (1) Atrial flutter with rapid ventricular response: Plan: New onset in setting of moderate caffeine/alcohol intake, recent prednisone use and colonoscopy prep likely causing some dehydration. TTE TSH - 1.363 Aim Mg > 2, K > 4 Rates much improved following diltiazem bolus Would avoid further rate control unless HR > 150 overnight as plan is for cardioversion in the morning Consult cardiology (2) GERD (gastroesophageal reflux disease): Plan: Continue famotidine 20mg HS (3) Hypertension: Plan: Continue metoprolol, losartan, amlodipine (hold if sBP < 100) (4) Hyperlipidemia: Plan: Continue atorvastatin (5) Coronary artery disease: Plan: s/p [place] 2007 - had PCI to LAD ASA, metoprolol, losartan, atorvastatin Plan VTE Prophylaxis - IV heparin Diet - heart healthy, NPO at midnight Disposition - admit to PCU Admission and Anticipated Discharge Date Admission Date: April 09, 2023 History of Present Illness Chief Complaint: Atrial flutter Primary Care Provider: Jamee Alford MD Mitchell Griffith is a 72 year old male who presents to the ER following asymptomatic atrial flutter prior to his elective outpatient colonoscopy today. He was therefore sent to the ER for further workup. The patient denies any chest pain, shortness of breath, palpitations or shortness of breath. He has no history of atrial flutter/fibrillation. He has a prior [place] with PCI to LAD in 2007 but has done well with his heart since then. He reports regular alcohol use with wine 2-4 times/day. Regular caffeine use with 2 pints of coffee a day. Recent bronchitis now resolved however he was on a course of prednisone last week which he did notice night sweats and elevated pulse from this up to 120-130 which improved after stopping prednisone. He underwent colon prep yesterday for the colonoscopy. Allergies Allergy/AdvReac Type Severity Reaction Status Date / Time bee venom protein (honey bee) Allergy Mild ANAPHYLACTIC-WAS Verified 04/09/23 18:16 TREATED BY SEAL MIXING OPERATOR-SUPPOSED TO BE IMMUNE cat dander Allergy Mild WHEEZING, Verified 04/09/23 18:16 ITCHY EYES WITH SOME CATS naproxen Allergy Mild POSSIBLE Verified 04/09/23 18:16 HIVES Home Medications Medication Instructions Recorded Confirmed Type acetaminophen 500 mg tablet 1,000 mg PO DAILY PRN Pain 03/29/18 04/09/23 History (Acetaminophen Extra Strength) aspirin 81 mg tablet,delayed 81 mg PO QAM 03/29/18 04/09/23 History release (Wei Low Dose Aspirin) coQ10 (ubiquinol) 200 mg capsule 200 mg PO QAM 03/29/18 04/09/23 History fluticasone propionate 50 2 spray intranasal QPM 03/29/18 04/09/23 History mcg/actuation nasal spray,suspension (Flonase Allergy Relief) multivitamin 1 tab PO QAM 03/29/18 04/09/23 History omega 2-jnl-fay-fish oil 1,000 mg 1 cap PO BID 03/29/18 04/09/23 History (120 mg-180 mg) capsule (Fish Oil) cholecalciferol (vitamin D3) 25 25 mcg PO DAILY 11/27/20 04/09/23 History mcg (1,000 unit) capsule epinephrine 0.3 mg/0.3 mL 0.3 mg (0.3 mL) IM ONCE PRN 08/12/21 04/09/23 Rx injection, auto-injector (EpiPen Allergic Reaction #1 ea 2-Wally) nitroglycerin 0.4 mg sublingual 0.4 mg sublingual UD PRN Angina 08/28/21 04/09/23 Rx tablet #30 tabs azelastine 137 mcg (0.1 %) nasal 2 spray intranasal .COMPLEX #90 mL 11/21/22 04/09/23 Rx spray aerosol CBD oil 10 mg PO BID 12/02/22 04/09/23 History vit C 250 mg-vit E 200 unit-zinc 1 cap PO BID 12/02/22 04/09/23 History ox 12.5 yi-ynapcs-uvmuvn-zeax capsule (ICaps AREDS2) albuterol sulfate 90 mcg/actuation 2 puff inhalation Q4 PRN Shortness 03/26/23 04/09/23 Rx aerosol inhaler (ProAir HFA) Of Breath #8.5 grams metoprolol tartrate 50 mg tablet 75 mg (1.5 x 50 mg) PO BID #270 03/26/23 04/09/23 Rx tabs Mct Wellness 1 dose PO BID 03/31/23 04/09/23 History Super Beets 1 cap PO BID 03/31/23 04/09/23 History amlodipine 10 mg tablet 10 mg PO QAM 03/31/23 04/09/23 History atorvastatin 40 mg tablet 40 mg PO QPM 03/31/23 04/09/23 History irbesartan 300 mg tablet 300 mg PO QAM #90 tabs 04/06/23 04/09/23 Rx cetirizine 10 mg tablet (Zyrtec) 10 mg PO HS 04/09/23 04/09/23 History famotidine 20 mg tablet (Pepcid AC) 20 mg PO HS 04/09/23 04/09/23 History Past Med/Surg History Medical History Arthritis Hx of attention deficit disorder as a child Allergy to bee sting Coronary artery disease s/p [place] 2007 - had PCI to LAD Impaired fasting glucose History of colon polyps Osteoarthritis GERD (gastroesophageal reflux disease) Hearing deficit Hypertension Hyperlipidemia Asthma used inhaler 6 weeks ago when dx with bronchitis Surgical History History of cataract surgery rt/left [place] teeth removed History of total left knee replacement (TKR) October 2016 History of total right knee replacement (TKR) February 2017 Dr. Danielle Hx of vasectomy History of colonoscopy History of esophagogastroduodenoscopy (EGD) History of tonsillectomy 1957 History of cardiac cath 2007 @ [facility] [place]1 stent placed (follows with Dr. Zuniga) Family History Father Alcohol abuse Anxiety Depression Cardiac disorder Myocardial infarction, Onset Age: 60 Hypertension Stroke, Onset Age: 60 Brother Alcohol abuse Other No family history of adverse response to anesthesia Denies family history of Ovarian cancer Prostate cancer Breast cancer Colorectal cancer Social History Smoking Status: Never smoker Tobacco Type: Pipe and Cigars Age Started Using Tobacco: 17; Age Quit Using Tobacco: 57; Cigarettes Per Day: 2-3 pipes per day; Second Hand Exposure: No; Do You Dip or Chew Tobacco: No; Tobacco Cessation Education Requested by Patient: No Hx Alcohol Use: Yes Alcohol type: beer and wine Hx Substance Use: No Preferred Language: Urdu Communication Ability: Effective Visual Impairment: No Limitations Hearing Ability: Use of Hearing Aid Decoration Checker Required: No Beliefs That Will Affect Care: None marital status: Current Living Situation: Spouse current occupational status: retired Other Information That Helps Us Care for You: No Feels Safe at Home: Yes Safety Concerns: Feels Safe At This Time Childhood Exposure to Second-Hand Smoke: Yes Dental Care, Regularly: Yes Physical Activity Frequency: Daily Seatbelt Use: always Assistive Devices: Glasses and Hearing Aid - Bilateral Review of Systems Review of Systems: All systems reviewed & are unremarkable except as noted in HPI & below Physical Exam Constitutional: WD/WN, vitals as above Eyes: + anicteric sclerae; normal pupil size ENMT: external ear and nose normal, oropharynx normal Neck: trachea midline, no thyromegaly Respiratory: normal respiratory effort, lungs clear to auscultation Cardiovascular: Rate/Rhythm: regular rate and + irregularly irregular Heart Sounds: no murmur Extremities: normal capillary refill; no calf tenderness and no pedal edema Gastrointestinal (Abdomen): normal bowel sounds, soft, nontender, no hepatosplenomegaly Skin: no rashes, warm and dry Neurologic: moves all extremities and awake; not confused Psychiatric: A+Ox3, euthymic affect Results & Data Results & Data Vital Signs (Past 12 Hours) Vital Signs Temp Pulse Pulse Resp BP BP Pulse Ox 04/09/23 18:34 73 04/09/23 17:14 74 19 96 04/09/23 17:14 118/67 04/09/23 16:55 128 H 18 143/94 H 96 04/09/23 13:58 36.7 C 127 H 20 166/106 H 96 O2 Del Method 04/09/23 18:34 04/09/23 17:14 04/09/23 17:14 04/09/23 16:55 Room Air 04/09/23 13:58 Room Air Laboratory Results Abnormal lab results 04/09/23 Range/Units 16:04 RDW Std Deviation 48.1 H (36.4-46.3) fL MPV 9.2 L (9.4-12.4) fL Potassium 3.3 L (3.5-5.1) mmol/L Glucose 124 H (70-99(Fasting)) mg/dl Diagnostic Findings XR chest 1V not portable HISTORY: 72 years-old Male Dysrhythmia COMPARISON: 03/09/2023 TECHNIQUE: PA view the chest FINDINGS: Cardiac silhouette is enlarged. No pneumothorax, pleural effusion or airspace consolidation. Bones appear grossly intact. IMPRESSION: No acute process. Medications Administered ER Medications Given: Diltiazem 20mg IV ECG Rate (beats per minute): 130 Rhythm: atrial flutter Findings: + nonspecific-ST abn Comparison ECG Date: from (September 16, 2016) Change: the following changes noted (atrial flutter is new) Code Status & VTE Plan Code Status Full VTE Prophylaxis Plan VTE Prophylaxis will be ordered: Yes PG Care Time/CCT Total # of Minutes Spent Total Time Spent with Patient: Total time spent is greater than 50% in coordination of care (as documented) at patient's floor/unit and/or counseling patient: Coding Level of Care Code 17495 INT INP/OBS CARE 2/55MIN Diagnoses Atrial flutter with rapid ventricular response I48.92 GERD (gastroesophageal reflux disease) K21.9 Primary hypertension I10 Hypertension type: primary hypertension Hyperlipidemia, unspecified hyperlipidemia type E78.5 Hyperlipidemia type: unspecified Coronary artery disease I25.10 (3) Hypertension Hypertension type: primary hypertension Qualified Code(s): I10 - Essential (primary) hypertension (4) Hyperlipidemia Hyperlipidemia type: unspecified Qualified Code(s): E78.5 - Hyperlipidemia, unspecified
[2023-04-09] MEDS: CETIRIZINE HCL 10 MG TABLET PO SCH (21:41)
[2023-04-09] MEDS: ATORVASTATIN 40 MG TAB PO SCH (21:41)
[2023-04-09] MEDS: FAMOTIDINE 20 MG TAB PO SCH (21:41)
[2023-04-09] MEDS: METOPROLOL TARTRATE 25 MG TAB PO SCH (21:42)
[2023-04-09] MEDS ORDERED: METOPROLOL TARTRATE 1 MG/ML VIAL IV PRN (22:33)
[2023-04-10 01:26] LABS: Partial Thromboplastin Time 83.4 Seconds (21.0-31.0)
[2023-04-10 08:11] LABS: Basophils # (auto) 0.08 K/uL (0.00-0.20); Basophils % (auto) 1.2 %; Eosinophils # (auto) 0.24 K/uL (0.00-0.50); Eosinophils % (auto) 3.7 %; Hematocrit (blood only) 38.7 % (42.0-52.0); Hemoglobin 12.5 g/dl (14.0-18.0); Immature Granulocytes # (auto) 0.02 K/uL (0.01-0.20); Immature Granulocytes % (auto) 0.3 %; Lymphocytes # (auto) 2.55 K/uL (1.20-3.40); Lymphocytes % (auto) 39.3 %; Mean Corpuscular Hemoglobin 30.2 pg (25.0-34.0); Mean Corpuscular Hgb Conc 32.3 g/dL (32.0-36.0); Mean Corpuscular Volume 93.5 fL (80.0-100.0); Mean Platelet Volume 9.4 fL (9.4-12.4); Monocytes # (auto) 0.75 K/uL (0.11-0.59); Monocytes % (auto) 11.6 %; Neutrophils # (auto) 2.85 K/uL (1.40-6.50); Neutrophils % (auto) 43.9 %; Platelet Count 182 K/uL (130-400); RDW Coefficient of Variation 13.8 % (11.5-14.5); RDW Standard Deviation 47.5 fL (36.4-46.3); Red Blood Count 4.14 M/uL (4.70-6.10); White Blood Count 6.49 K/ul (4.8-10.8)
[2023-04-10 08:17] LABS: BUN Creatinine Ratio 12.3 (10-20); Calcium 8.4 mg/dl (8.6-10.3); Creatinine Clr Calc Pharmacy 112.8 ml/min; Est GFR (African American) 106.7 ml/min; Magnesium 2.2 mg/dl (1.7-2.4)
[2023-04-10 08:36] LABS: Partial Thromboplastin Ratio 3.4
[2023-04-10 08:50] LABS: Partial Thromboplastin Time 95.6 Seconds (21.0-31.0)
[2023-04-10] MEDS: METOPROLOL TARTRATE 25 MG TAB PO SCH ×2 (09:02→20:36)
[2023-04-10] MEDS: ASPIRIN 81 MG ECTAB PO SCH (09:18)
[2023-04-10] MEDS: amLODIPine BESYLATE 5 MG TAB PO SCH (09:18)
[2023-04-10] MEDS: LOSARTAN POTASSIUM 50 MG TAB PO SCH (09:19)
--- NOTE | 2023-04-10 10:09 | Anesthesiology Consultation ---
Date of Service April 10, 2023 Assessment & Plan (1) Encounter for pre-operative examination: Chart Review Chart Review: Acceptable Risk for Surgery and Patient NOT seen in Pre Admission Testing Consults Requested none History Height/Weight Height: 6 ft Weight: 104.9 kg Allergies Allergy/AdvReac Type Severity Reaction Status Date / Time bee venom protein (honey bee) Allergy Mild ANAPHYLACTIC-WAS Verified 04/09/23 18:16 TREATED BY KITCHEN MANAGER-SUPPOSED TO BE IMMUNE cat dander Allergy Mild WHEEZING, Verified 04/09/23 18:16 ITCHY EYES WITH SOME CATS naproxen Allergy Mild POSSIBLE Verified 04/09/23 18:16 HIVES Medications Home Medications Medication Instructions Recorded Confirmed Last Taken acetaminophen 500 mg tablet 1,000 mg PO DAILY PRN Pain 03/29/18 04/09/23 Unknown (Acetaminophen Extra Strength) aspirin 81 mg tablet,delayed 81 mg PO QAM 03/29/18 04/09/23 04/09/23 release (Wei Low Dose Aspirin) coQ10 (ubiquinol) 200 mg capsule 200 mg PO QAM 03/29/18 04/09/23 04/08/23 08:00 fluticasone propionate 50 2 spray intranasal QPM 03/29/18 04/09/23 04/09/23 05:30 mcg/actuation nasal spray,suspension (Flonase Allergy Relief) multivitamin 1 tab PO QAM 03/29/18 04/09/23 04/08/23 08:00 omega 4-rlx-whe-fish oil 1,000 mg 1 cap PO BID 03/29/18 04/09/23 04/08/23 (120 mg-180 mg) capsule (Fish Oil) cholecalciferol (vitamin D3) 25 25 mcg PO DAILY 11/27/20 04/09/23 04/08/23 08:00 mcg (1,000 unit) capsule epinephrine 0.3 mg/0.3 mL 0.3 mg (0.3 mL) IM ONCE PRN 08/12/21 04/09/23 Unknown injection, auto-injector (EpiPen Allergic Reaction #1 ea 2-Wally) nitroglycerin 0.4 mg sublingual 0.4 mg sublingual UD PRN Angina 08/28/21 04/09/23 04/08/23 17:00 tablet #30 tabs azelastine 137 mcg (0.1 %) nasal 2 spray intranasal .COMPLEX #90 mL 11/21/22 04/09/23 04/08/23 20:00 spray aerosol CBD oil 10 mg PO BID 12/02/22 04/09/23 04/08/23 vit C 250 mg-vit E 200 unit-zinc 1 cap PO BID 12/02/22 04/09/23 04/08/23 ox 12.5 mr-pssbjn-qtfcyi-zeax capsule (ICaps AREDS2) albuterol sulfate 90 mcg/actuation 2 puff inhalation Q4 PRN Shortness 03/26/23 04/09/23 Unknown aerosol inhaler (ProAir HFA) Of Breath #8.5 grams metoprolol tartrate 50 mg tablet 75 mg (1.5 x 50 mg) PO BID #270 03/26/23 04/09/23 04/09/23 05:30 tabs Mct Wellness 1 dose PO BID 03/31/23 04/09/23 04/08/23 Super Beets 1 cap PO BID 03/31/23 04/09/23 04/08/23 amlodipine 10 mg tablet 10 mg PO QAM 03/31/23 04/09/23 04/09/23 05:30 atorvastatin 40 mg tablet 40 mg PO QPM 03/31/23 04/09/23 04/08/23 20:00 irbesartan 300 mg tablet 300 mg PO QAM #90 tabs 04/06/23 04/09/23 04/09/23 05:30 cetirizine 10 mg tablet (Zyrtec) 10 mg PO HS 04/09/23 04/09/23 04/08/23 famotidine 20 mg tablet (Pepcid AC) 20 mg PO HS 04/09/23 04/09/23 04/08/23 Active Medications Generic Name Dose Route Start Last Admin Trade Name Freq PRN Reason Stop Dose Admin Amlodipine Besylate 10 mg 04/10/23 09:00 04/10/23 09:18 Amlodipine Besylate 5 Mg Tab PO 05/10/23 08:59 10 mg QAM FAIZAN Administration Aspirin 81 mg 04/10/23 09:00 04/10/23 09:18 Aspirin 81 Mg Ectab PO 05/10/23 08:59 81 mg QAM FAIZAN Administration Atorvastatin Calcium 40 mg 04/09/23 21:00 04/09/23 21:41 Atorvastatin 40 Mg Tab PO 05/09/23 20:59 40 mg QPM FAIZAN Administration Cetirizine HCl 10 mg 04/09/23 21:00 04/09/23 21:41 Cetirizine Hcl 10 Mg Tablet PO 05/09/23 20:59 10 mg HS FAIZAN Administration Famotidine 20 mg 04/09/23 21:00 04/09/23 21:41 Famotidine 20 Mg Tab PO 05/09/23 20:59 20 mg HS FAIZAN Administration Heparin Sodium/Dextrose 25,000 units in 500 mls @ 30 mls/hr 04/09/23 18:30 04/10/23 09:15 Heparin Sodium/Dextrose IV 05/09/23 18:29 0 units/hr .[id number] FAIZAN 0 mls/hr Titration Protocol 1,500 UNITS/HR Losartan Potassium 100 mg 04/10/23 09:00 04/10/23 09:19 Losartan Potassium 50 Mg Tab PO 05/10/23 08:59 100 mg QAM FAIZAN Administration Protocol Metoprolol Tartrate 75 mg 04/09/23 21:00 04/10/23 09:02 Metoprolol Tartrate 25 Mg Tab PO 05/09/23 20:59 Not Given BID FAIZAN Past Medical History Medical History Arthritis Hx of attention deficit disorder as a child Allergy to bee sting Coronary artery disease s/p [place] 2007 - had PCI to LAD Impaired fasting glucose History of colon polyps Osteoarthritis GERD (gastroesophageal reflux disease) Hearing deficit Hypertension Hyperlipidemia Asthma used inhaler 6 weeks ago when dx with bronchitis Past Family History Family History Father Alcohol abuse Anxiety Depression Cardiac disorder Myocardial infarction, Onset Age: 60 Hypertension Stroke, Onset Age: 60 Brother Alcohol abuse Other No family history of adverse response to anesthesia Denies family history of Ovarian cancer Prostate cancer Breast cancer Colorectal cancer Past Surgical History Surgical History History of cataract surgery rt/left [place] teeth removed History of total left knee replacement (TKR) October 2016 History of total right knee replacement (TKR) February 2017 Dr. Danielle Hx of vasectomy History of colonoscopy History of esophagogastroduodenoscopy (EGD) History of tonsillectomy 1958 [place] [facility] [place] (follows with Dr. Zuniga) Social History Smoking Status: Never smoker tobacco type: pipe Smoking cigarettes per day: 2-3 pipes per day Do You Dip or Chew Tobacco: No Hx Alcohol Use: Yes Alcohol type: beer and wine alcohol intake frequency: 0-2 drinks per day Hx Substance Use: No substance use type: does not use Last Used Substance: Days (ago) Physical Exam Vital Signs Last Vital Signs Temp 98.4 F 04/10/23 07:17 Pulse 98 H 04/10/23 07:17 Resp 16 04/10/23 07:17 BP 132/80 04/10/23 07:17 Pulse Ox 94 04/10/23 07:17 O2 Del Method Room Air 04/10/23 07:17 Testing Laboratory Results 04/10/23 07:16 04/10/23 07:16 APTT 95.6 Seconds (21.0-31.0) H* 04/10/23 07:16
[2023-04-10] MEDS ORDERED: LIDOCAINE 2% 2 ML VIAL/AMP(20MG/ML) INFIL ONE (10:42)
[2023-04-10] MEDS ORDERED: PROPOFOL IV EMULSION 10 MG/ML 20 ML VIAL IV ONE (10:42)
[2023-04-10] MEDS ORDERED: BENZOCAINE/TETRACAIN/BUTAM 50 APPLN/5 GM CAN EXT ONE (11:15)
--- NOTE | 2023-04-10 11:32 | Anesthesiology Progress Note ---
Date of Service April 10, 2023 Anesthesia Post Procedure Vital Signs Vital Signs: Temp Pulse Pulse Resp BP BP Pulse Ox 04/10/23 11:08 92 H 21 135/90 95 04/10/23 07:17 98.4 F 98 H 16 132/80 94 04/10/23 03:00 97.9 F 89 16 120/72 96 04/09/23 23:00 98.4 F 107 H 20 125/80 96 04/09/23 22:08 80 04/09/23 21:50 97.7 F 81 16 149/74 H 98 04/09/23 18:34 73 04/09/23 17:14 74 19 96 04/09/23 17:14 118/67 04/09/23 16:55 128 H 18 143/94 H 96 04/09/23 13:58 98.1 F 127 H 20 166/106 H 96 O2 Del Method 04/10/23 11:08 Room Air 04/10/23 07:17 Room Air 04/10/23 03:00 Room Air 04/09/23 23:00 Room Air 04/09/23 22:08 04/09/23 21:50 Room Air 04/09/23 18:34 04/09/23 17:14 04/09/23 17:14 04/09/23 16:55 Room Air 04/09/23 13:58 Room Air Transfer of Care Handoff Completed per policy Notes Mental Status: alert / awake / arousable and participated in evaluation Patient Amnestic to Procedure: Yes Nausea / Vomiting: adequately controlled Pain: adequately controlled Airway Patency, RR, SpO2: stable & adequate BP & HR: stable & adequate Hydration State: stable & adequate Anesthetic Complications: no major complications apparent and Pt Satisfied with anesthetic care
--- NOTE | 2023-04-10 11:34 | Cardioversion ---
Date of Service April 10, 2023 PG Electrical Cardioversion Rp Electrical Cardioversion Report Procedure performed: Cardioversion Indication: Atrial flutter Staff specialty trimmer: Giovanni Colindres MD Procedure in detail: The patient was informed of the risks benefits and alternatives to the intended procedure. He understood such which proceed. He was taken to the cardiac catheterization suite holding area. A general anesthetic was administered by the Anesthesiology Service. Once appropriately anesthetized, the patient was cardioverted using 50 joules delivered in a biphasic fashion. This returned the patient to sinus rhythm. The patient tolerated procedure well, there were no immediate complications. Patient was neurologically intact subsequent to the procedure. Impression: Successful cardioversion from atrial flutter to normal sinus rhythm Coding Level of Care Code 46782 CARDIOVERSION, ELECTIVE Additional Codes Electrical Cardioversion Report ([id number])
[2023-04-10] MEDS: HEPARIN SODIUM/DEXTROSE 25,000 UNITS/500 ML BAG IV SCH ×2 (13:54→19:11)
--- NOTE | 2023-04-10 16:43 | Cardiology Consultation ---
Date of Consultation April 10, 2023 Assessment & Plan (1) Atrial flutter with rapid ventricular response: (2) Coronary artery disease: (3) Mitral regurgitation: Plan 1. Atrial flutter: This appears be a typical right atrial flutter based on the morphology on the EKG. He did have some symptoms beginning a couple of weeks ago. Some associated high heart rates. Unclear etiology overall. Possibly occult sleep apnea. We discussed options for treatment. I think the best option would be returned to sinus rhythm and initiation of anticoagulation. Plan on a transesophageal echocardiogram and cardioversion today. Subsequent cardioversion he could be transition from heparin to an oral agent, Xarelto 20 mg daily or Eliquis 5 mg twice daily would both be reasonable options. Should continue on his current dose of metoprolol and other antihypertensives. Follow-up in the outpatient setting discuss more permanent solutions (we did discuss the utility of catheter based therapy). 2. Coronary disease: Remote history of PCI to the LAD. No current symptoms suggestive of coronary insufficiency or angina. Troponins. Continue aggressive secondary prevention with high-dose atorvastatin. 3. Mitral regurgitation: Moderate on current echocardiogram. Possibly worse given his current arrhythmia. This can be followed over time. History of Present Illness Reason for Consultation: Atrial flutter Requesting Physician: Magali Attending Physician: Araseli Ledesma MD History of Present Illness The patient is a 72-year-old gentleman with remote history of coronary artery disease having previously undergone percutaneous intervention to the proximal LAD. Patient states that a few weeks ago began to experience symptoms of an upper respiratory illness characterized as bronchitis. He was prescribed an outpatient regimen medications which included some steroids. States that during his steroid taper did start to notice some sense of palpitations. This occasionally involved a sense of irregularity or strong heartbeats. He does monitor his heart rate at home and at times notice heart rates as high as 130 beats per minute while at rest. Think he is high heart rates appeared to improve during the course of the day, but persisted. He was otherwise feeling well and a bronchitis appear to have resolved. He presented yesterday for routine outpatient colonoscopy when he was discovered to have an irregular heartbeat. An EKG documented atrial flutter and he was sent to the emergency room and eventually admitted. Patient states that overall he has been feeling well. He is an active individual and likes to hike and [place]. He does not report symptoms associated with his usual activities. Outside of his bronchitis he generally does not have symptoms of dyspnea. He has not endorse any symptoms of chest pain recently. When his heart rate is high even at rest he had some very mild dizziness and breathing difficulty. However, this was transient. No syncope. Allergies Allergy/AdvReac Type Severity Reaction Status Date / Time bee venom protein (honey bee) Allergy Mild ANAPHYLACTIC-WAS Verified 04/09/23 18:16 TREATED BY SITE SURVEYOR-SUPPOSED TO BE IMMUNE cat dander Allergy Mild WHEEZING, Verified 04/09/23 18:16 ITCHY EYES WITH SOME CATS naproxen Allergy Mild POSSIBLE Verified 04/09/23 18:16 HIVES Home Medications Medication Instructions Recorded Confirmed Type acetaminophen 500 mg tablet 1,000 mg PO DAILY PRN Pain 03/29/18 04/09/23 History (Acetaminophen Extra Strength) aspirin 81 mg tablet,delayed 81 mg PO QAM 03/29/18 04/09/23 History release (Wei Low Dose Aspirin) coQ10 (ubiquinol) 200 mg capsule 200 mg PO QAM 03/29/18 04/09/23 History fluticasone propionate 50 2 spray intranasal QPM 03/29/18 04/09/23 History mcg/actuation nasal spray,suspension (Flonase Allergy Relief) multivitamin 1 tab PO QAM 03/29/18 04/09/23 History omega 9-ndq-brk-fish oil 1,000 mg 1 cap PO BID 03/29/18 04/09/23 History (120 mg-180 mg) capsule (Fish Oil) cholecalciferol (vitamin D3) 25 25 mcg PO DAILY 11/27/20 04/09/23 History mcg (1,000 unit) capsule epinephrine 0.3 mg/0.3 mL 0.3 mg (0.3 mL) IM ONCE PRN 08/12/21 04/09/23 Rx injection, auto-injector (EpiPen Allergic Reaction #1 ea 2-Wally) nitroglycerin 0.4 mg sublingual 0.4 mg sublingual UD PRN Angina 08/28/21 04/09/23 Rx tablet #30 tabs azelastine 137 mcg (0.1 %) nasal 2 spray intranasal .COMPLEX #90 mL 11/21/22 04/09/23 Rx spray aerosol CBD oil 10 mg PO BID 12/02/22 04/09/23 History vit C 250 mg-vit E 200 unit-zinc 1 cap PO BID 12/02/22 04/09/23 History ox 12.5 uc-tbgtng-bfqmko-zeax capsule (ICaps AREDS2) albuterol sulfate 90 mcg/actuation 2 puff inhalation Q4 PRN Shortness 03/26/23 04/09/23 Rx aerosol inhaler (ProAir HFA) Of Breath #8.5 grams metoprolol tartrate 50 mg tablet 75 mg (1.5 x 50 mg) PO BID #270 03/26/23 04/09/23 Rx tabs Mct Wellness 1 dose PO BID 03/31/23 04/09/23 History Super Beets 1 cap PO BID 03/31/23 04/09/23 History amlodipine 10 mg tablet 10 mg PO QAM 03/31/23 04/09/23 History atorvastatin 40 mg tablet 40 mg PO QPM 03/31/23 04/09/23 History irbesartan 300 mg tablet 300 mg PO QAM #90 tabs 04/06/23 04/09/23 Rx cetirizine 10 mg tablet (Zyrtec) 10 mg PO HS 04/09/23 04/09/23 History famotidine 20 mg tablet (Pepcid AC) 20 mg PO HS 04/09/23 04/09/23 History apixaban 5 mg tablet (Eliquis) 5 mg PO BID 1 month #60 tabs 04/10/23 Rx Patient History Medical History Arthritis Hx of attention deficit disorder as a child Allergy to bee sting Coronary artery disease s/p [place] 2007 - had PCI to LAD Impaired fasting glucose History of colon polyps Osteoarthritis GERD (gastroesophageal reflux disease) Hearing deficit Hypertension Hyperlipidemia Asthma used inhaler 6 weeks ago when dx with bronchitis Surgical History History of cataract surgery rt/left [place] teeth removed History of total left knee replacement (TKR) October 2016 History of total right knee replacement (TKR) February 2017 Dr. Danielle Hx of vasectomy History of colonoscopy History of esophagogastroduodenoscopy (EGD) History of tonsillectomy 1957 History of cardiac cath 2007 [place] [facility] [place] stent [place] (follows with Dr. Zuniga) Family History Father Alcohol abuse Anxiety Depression Cardiac disorder Myocardial infarction, Onset Age: 60 Hypertension Stroke, Onset Age: 60 Brother Alcohol abuse Other No family history of adverse response to anesthesia Denies family history of Ovarian cancer Prostate cancer Breast cancer Colorectal cancer Social History Smoking Status: Never smoker Tobacco Type: Pipe and Cigars Age Started Using Tobacco: 17; Age Quit Using Tobacco: 57; Cigarettes Per Day: 2-3 pipes per day; Second Hand Exposure: No; Do You Dip or Chew Tobacco: No; Tobacco Cessation Education Requested by Patient: No Hx Alcohol Use: Yes Alcohol type: beer and wine Hx Substance Use: No Preferred Language: Slovenian Communication Ability: Effective Visual Impairment: No Limitations Hearing Ability: Use of Hearing Aid Parole Or Probation Officer Required: No Beliefs That Will Affect Care: None marital status: Current Living Situation: Spouse current occupational status: retired Other Information That Helps Us Care for You: No Feels Safe at Home: Yes Safety Concerns: Feels Safe At This Time Childhood Exposure to Second-Hand Smoke: Yes Dental Care, Regularly: Yes Physical Activity Frequency: Daily Seatbelt Use: always Assistive Devices: None Review of Systems Review of Systems: Per HPI. Patient's states that he snores on occasion Physical Exam Physical Exam: The patient is alert and oriented. Mood and affect appeared normal. He answered all questions appropriately. HEENT: Pupils are equal and reactive to light and accommodation. Extraocular movements are intact. The sclerae are anicteric. Neuro: Cranial nerves intact Lungs: Clear to auscultation bilaterally. He has good air movement without use of accessory muscles. No rales wheezes or rhonchi. Cardiac: Heart demonstrates an irregular rhythm. Normal S1 and S2. No murmurs on examination. Pulses: The patient has palpable radial pulses bilaterally that are equal in intensity Extremities: There was no evidence of hypoperfusion. There is no cyanosis or clubbing. There is no edema. Skin: I did not appreciate any rashes on examination today. Results & Data Vital Signs (Past 12 Hours) Vital Signs Temp Pulse Pulse Resp BP BP Pulse Ox 04/10/23 15:52 36.6 C 89 18 134/72 134/72 96 04/10/23 13:31 77 16 126/78 96 04/10/23 13:01 87 16 147/80 H 96 04/10/23 12:31 36.9 C 132 H 18 132/79 97 04/10/23 11:35 96 H 21 117/71 98 04/10/23 11:08 92 H 21 135/90 95 04/10/23 07:17 36.9 C 98 H 16 132/80 94 O2 Del Method 04/10/23 15:52 Room Air 04/10/23 13:31 Room Air 04/10/23 13:01 Room Air 04/10/23 12:31 Room Air 04/10/23 11:35 Room Air 04/10/23 11:08 Room Air 04/10/23 07:17 Room Air Laboratory Results Abnormal Lab Results 04/09/23 04/10/23 04/10/23 16:04 00:27 07:16 WBC 6.49 RBC 4.14 L Hgb 12.5 L Hct 38.7 L MCV 93.5 MCH 30.2 MCHC 32.3 RDW Std Deviation 47.5 H RDW Coeff of Kiara 13.8 Plt Count 182 MPV 9.4 Immature Gran % (Auto) 0.3 Neut % (Auto) 43.9 Lymph % (Auto) 39.3 [place] % (Auto) 11.6 Eos % (Auto) 3.7 Baso % (Auto) 1.2 Neut # (Auto) 2.85 Lymph # (Auto) 2.55 [place] # (Auto) 0.75 H Eos # (Auto) 0.24 Baso # (Auto) 0.08 Immature Gran # (Auto) 0.02 APTT 83.4 H* 95.6 H* PTT Ratio 3.0 3.4 Sodium 142 140 Potassium 3.3 L 4.0 D Chloride 107 107 Carbon Dioxide 26 27 Anion Gap 9 6 BUN 10 9 Creatinine 0.72 0.73 Est Cr Clr Drug Dosing Not Reportable 112.8 Est GFR ( Amer) 107.3 106.7 Est GFR (Non-Af Amer) 92.5 92.0 BUN/Creatinine Ratio 13.9 12.3 Glucose 124 H 102 H Calcium 9.2 8.4 L Phosphorus 2.9 Magnesium 2.3 2.2 Total Bilirubin 0.8 AST 23 ALT 21 Alkaline Phosphatase 95 Troponin I High Sens 7.1 Total Protein 7.4 Albumin 4.5 Globulin 2.9 Albumin/Globulin Ratio 1.6 TSH 1.363 Diagnostic Findings Exercise SPECT 04/2022 ([place]): Exercised 4 minutes, achieved 92% MPHR, resting EF 71%, negative stress for ischemia. Inferior fixed perfusion defect thought to be artifact. Borderline hypertensive response. Chest x-ray obtained the time admission Read as no acute process Echocardiogram performed 04/10/2023: Preserved LV systolic function. Moderate mitral regurgitation. Mild bilateral atrial enlargement, mildly elevated pulmonary pressures PG Care Time/CCT Total # of Minutes Spent Total Time Spent with Patient: Total time spent is greater than 50% in coordination of care (as documented) at patient's floor/unit and/or counseling patient: Coding Level of Care Code 62019 INT INP/OBS CARE 3/75MIN Diagnoses Atrial flutter with rapid ventricular response I48.92 Coronary artery disease involving [place] coronary artery of [place] heart without angina pectoris I25.10 Coronary Disease-Associated Artery/Lesion type: [place] artery [place] vs. transplanted heart: [place] heart Associated angina: without angina Nonrheumatic mitral valve regurgitation I34.0 Cardiac valve disease etiology: nonrheumatic (2) Coronary artery disease Coronary Disease-Associated Artery/Lesion type: [place] artery [place] vs. transplanted heart: [place] heart Associated angina: without angina Qualified Code(s): I25.10 - Atherosclerotic heart disease of [place] coronary artery without angina pectoris (3) Mitral regurgitation Cardiac valve disease etiology: nonrheumatic Qualified Code(s): I34.0 - Nonrheumatic mitral (valve) insufficiency
--- NOTE | 2023-04-10 16:44 | Hospitalist Progress Note ---
Date of Service April 10, 2023 Assessment & Plan (1) Atrial flutter with rapid ventricular response: Plan: New onset in setting of moderate caffeine/alcohol intake, recent prednisone use and colonoscopy prep likely causing some dehydration. TTE pending TSH - 1.363 Aim Mg > 2, K > 4 sales order processor on board Status post cardioversion today 04/10 Will start the patient on Eliquis 5 mg p.o. twice daily. Discontinue heparin drip Check H&H in a.m. Likely discharge tomorrow (2) GERD (gastroesophageal reflux disease): Plan: Continue famotidine 20mg HS (3) Hypertension: Plan: Continue metoprolol, losartan, amlodipine (hold if sBP < 100) (4) Hyperlipidemia: Plan: Continue atorvastatin (5) Coronary artery disease: Plan: s/p CT 2007 - had PCI to LAD ASA, metoprolol, losartan, atorvastatin Plan VTE Prophylaxis - IV heparin. Switch to Eliquis Diet - heart healthy Disposition - likely discharge tomorrow Admission and Anticipated Discharge Date Admission Date: April 09, 2023 Subjective patient had cardioversion done today. Has remained in sinus rhythm since. Denies any chest pain, shortness of breath, palpitations Review of Systems Review of Systems: All systems reviewed & are unremarkable except as noted in Subjective Physical Exam Physical Exam: general: Awake, conversant Heart: S1, S2/regular rate and rhythm, no murmur rubs or gallops Lungs: Clear to auscultation bilaterally. Normal effort Abdomen: Soft/nontender/nondistended. No hepatosplenomegaly Extremities: No clubbing/cyanosis. No edema Behavior: Appropriate, cooperative Results & Data Results & Data Vital Signs (Past 12 Hours) Vital Signs Temp Pulse Pulse Resp BP BP Pulse Ox 04/10/23 15:52 36.6 C 89 18 134/72 134/72 96 04/10/23 13:31 77 16 126/78 96 04/10/23 13:01 87 16 147/80 H 96 04/10/23 12:31 36.9 C 132 H 18 132/79 97 04/10/23 11:35 96 H 21 117/71 98 04/10/23 11:08 92 H 21 135/90 95 04/10/23 07:17 36.9 C 98 H 16 132/80 94 O2 Del Method 04/10/23 15:52 Room Air 04/10/23 13:31 Room Air 04/10/23 13:01 Room Air 04/10/23 12:31 Room Air 04/10/23 11:35 Room Air 04/10/23 11:08 Room Air 04/10/23 07:17 Room Air Laboratory Results Abnormal lab results 04/09/23 04/10/23 04/10/23 Range/Units 16:04 00:27 07:16 RBC 4.14 L (4.70-6.10) M/uL Hgb 12.5 L (14.0-18.0) g/dl Hct 38.7 L (42.0-52.0) % RDW Std Deviation 47.5 H (36.4-46.3) fL [place] # (Auto) 0.75 H (0.11-0.59) K/uL APTT 83.4 H* 95.6 H* (21.0-31.0) Seconds Potassium 3.3 L (3.5-5.1) mmol/L Glucose 124 H 102 H (70-99(Fasting)) mg/dl Calcium 8.4 L (8.6-10.3) mg/dl PG Care Time/CCT Total # of Minutes Spent Total Time Spent with Patient: Total time spent is greater than 50% in coordination of care (as documented) at patient's floor/unit and/or counseling patient: Coding Level of Care Code 52580 SUB INP/OBS CARE 2/35MIN Diagnoses Atrial flutter with rapid ventricular response I48.92 GERD (gastroesophageal reflux disease) K21.9 Primary hypertension I10 Hypertension type: primary hypertension Hyperlipidemia, unspecified hyperlipidemia type E78.5 Hyperlipidemia type: unspecified Coronary artery disease I25.10 (3) Hypertension Hypertension type: primary hypertension Qualified Code(s): I10 - Essential (primary) hypertension (4) Hyperlipidemia Hyperlipidemia type: unspecified Qualified Code(s): E78.5 - Hyperlipidemia, unspecified
--- NOTE | 2023-04-10 16:48 | XCELERA ---
[id number] \\[email or web address]\[id number]_PDF_[id number]___[id number]
--- NOTE | 2023-04-10 16:55 | XCELERA ---
[id number] \\[email or web address]\ISCV_PDF_[id number]___[id number]
--- NOTE | 2023-04-10 17:27 | Electrocardiogram Report ---
Test Reason : Blood Pressure : / mmHG Vent. Rate : 130 BPM Atrial Rate : 260 BPM P-R Int : 000 ms QRS Dur : 066 ms QT Int : 318 ms P-R-T Axes : 021 038 -80 degrees QTc Int : 467 ms Atrial flutter with variable A-V block with premature ventricular or aberrantly conducted complexes Low voltage QRS Abnormal ECG When compared with ECG of 09-APR-2023 13:29, ST now depressed in Anterolateral leads T wave inversion more evident in Inferior leads T wave inversion now evident in Lateral leads Confirmed by Giovanni Colindres ([id number]) on 04/10/2023 5:27:16 PM Referred By: REFERRED SELF Confirmed By:Antonio Colindres
--- NOTE | 2023-04-10 17:29 | Electrocardiogram Report ---
Test Reason : Blood Pressure : / mmHG Vent. Rate : 062 BPM Atrial Rate : 277 BPM P-R Int : 000 ms QRS Dur : 076 ms QT Int : 414 ms P-R-T Axes : 088 078 022 degrees QTc Int : 420 ms Atrial flutter with variable A-V block with premature ventricular or aberrantly conducted complexes Abnormal ECG When compared with ECG of 09-APR-2023 16:00, (unconfirmed) Vent. rate has decreased BY [address] less depressed in Inferior leads ST no longer depressed in Anterolateral leads T wave inversion no longer evident in Inferior leads T wave inversion no longer evident in Lateral leads Confirmed by Giovanni Colindres ([id number]) on 04/10/2023 5:29:46 PM Referred By: REFERRED SELF Confirmed By:Antonio Colindres
--- NOTE | 2023-04-10 17:32 | Electrocardiogram Report ---
Test Reason : Blood Pressure : / mmHG Vent. Rate : 104 BPM Atrial Rate : 264 BPM P-R Int : 000 ms QRS Dur : 074 ms QT Int : 344 ms P-R-T Axes : 000 058 -05 degrees QTc Int : 452 ms Atrial flutter with variable A-V block Abnormal ECG When compared with ECG of 09-APR-2023 17:20, (unconfirmed) Vent. rate has increased BY 42 BPM Confirmed by Giovanni Colindres ([id number]) on 04/10/2023 5:31:55 PM Referred By: REFERRED SELF Confirmed By:Antonio Colindres
--- NOTE | 2023-04-10 18:02 | Electrocardiogram Report ---
Test Reason : Blood Pressure : / mmHG Vent. Rate : 083 BPM Atrial Rate : 083 BPM P-R Int : 224 ms QRS Dur : 076 ms QT Int : 380 ms P-R-T Axes : 008 055 030 degrees QTc Int : 446 ms Sinus rhythm with 1st degree A-V block Otherwise normal ECG When compared with ECG of 09-APR-2023 20:22, (unconfirmed) Sinus rhythm has replaced Atrial flutter Non-specific change in ST segment in Inferior leads Non-specific change in ST segment in Lateral leads Confirmed by Giovanni Colindres ([id number]) on 04/10/2023 6:01:49 PM Referred By: REFERRED SELF Confirmed By:Antonio Colindres
[2023-04-10] MEDS: FAMOTIDINE 20 MG TAB PO SCH (20:36)
[2023-04-10] MEDS: CETIRIZINE HCL 10 MG TABLET PO SCH (20:36)
[2023-04-10] MEDS: ATORVASTATIN 40 MG TAB PO SCH (20:36)
[2023-04-10] MEDS: APIXABAN 5 MG TABLET PO SCH (21:21)
[2023-04-11 06:49] LABS: Hematocrit (blood only) 36.8 % (42.0-52.0); Hemoglobin 12.2 g/dl (14.0-18.0)
[2023-04-11] MEDS: ASPIRIN 81 MG ECTAB PO SCH (08:24)
[2023-04-11] MEDS: LOSARTAN POTASSIUM 50 MG TAB PO SCH (08:24)
[2023-04-11] MEDS: amLODIPine BESYLATE 5 MG TAB PO SCH (08:24)
[2023-04-11] MEDS: METOPROLOL TARTRATE 25 MG TAB PO SCH (08:25)
[2023-04-11] MEDS: APIXABAN 5 MG TABLET PO SCH (09:10)
--- NOTE | 2023-04-11 09:31 | Discharge Summary ---
Date of Service April 11, 2023 Admission HPI Per Admitting Provider Mitchell Griffith is a 72 year old male who presents to the ER following asymptomatic atrial flutter prior to his elective outpatient colonoscopy today. He was therefore sent to the ER for further workup. The patient denies any chest pain, shortness of breath, palpitations or shortness of breath. He has no history of atrial flutter/fibrillation. He has a prior [place] with PCI to LAD in 2007 but has done well with his heart since then. He reports regular alcohol use with wine 2-4 times/day. Regular caffeine use with 2 pints of coffee a day. Recent bronchitis now resolved however he was on a course of prednisone last w which he did notice night sweats and elevated pulse from this up to 120-130 which improved after stopping prednisone. He underwent colon prep yesterday for the colonoscopy. Admission Exam Per Admitting Provider Constitutional: WD/WN, vitals as above Eyes: + anicteric sclerae; normal pupil size ENMT: external ear and nose normal, oropharynx normal Neck: trachea midline, no thyromegaly Respiratory: normal respiratory effort, lungs clear to auscultation Cardiovascular: Rate/Rhythm: regular rate and + irregularly irregular Heart Sounds: no murmur Extremities: normal capillary refill; no calf tenderness and no pedal edema Gastrointestinal (Abdomen): normal bowel sounds, soft, nontender, no hepatosplenomegaly Skin: no rashes, warm and dry Neurologic: moves all extremities and awake; not confused Psychiatric: A+Ox3, euthymic affect Principal Diagnosis Atrial flutter with rapid ventricular response, status post cardioversion 04/10 Discharge Exam general: Awake, conversant Heart: S1, S2/regular rate and rhythm, no murmur rubs or gallops Lungs: Clear to auscultation bilaterally. Normal effort Abdomen: Soft/nontender/nondistended. No hepatosplenomegaly Extremities: No clubbing/cyanosis. No edema Behavior: Appropriate, cooperative Discharge Data Allergies Allergy/AdvReac Type Severity Reaction Status Date / Time bee venom protein (honey bee) Allergy Mild ANAPHYLACTIC-WAS Verified 04/09/23 18:16 TREATED BY SIDE STITCHING MACHINE OPERATOR-SUPPOSED TO BE IMMUNE cat dander Allergy Mild WHEEZING, Verified 04/09/23 18:16 ITCHY EYES WITH SOME CATS naproxen Allergy Mild POSSIBLE Verified 04/09/23 18:16 HIVES Consultations 04/09/23 17:37 ED Decision to Admit Stat 04/09/23 18:08 Consult Cardiology Routine 04/10/23 10:00 Consult Anesthesiology Routine Procedures Performed Operation Date: 04/10/23 11:00 Actual Procedures p Echo Transesophageal - Giovanni Colindres MD s Cardioversion - Giovanni Colindres MD Hospital Course (1) Atrial flutter with rapid ventricular response: New onset in setting of moderate caffeine/alcohol intake, recent prednisone use and colonoscopy prep likely causing some dehydration. TTE Unremarkable other than mildly dilated left atrium TSH - 1.363 Aim Mg > 2, K > 4 admission discharge rn on board Advised the patient to discuss with his PCP about getting a sleep study done outpatient Status post cardioversion 04/10 discontinued heparin drip and started on Eliquis 5 mg p.o. twice daily on 04/10 PM. Discharge on Eliquis Continue metoprolol that he already takes H&H this morning acceptable (2) GERD (gastroesophageal reflux disease): Continue famotidine 20mg HS (3) Hypertension: Continue metoprolol, losartan, amlodipine (4) Hyperlipidemia: Continue atorvastatin (5) Coronary artery disease: s/p [place] 2008 - had PCI to LAD ASA, metoprolol, losartan, atorvastatin Plan discharge to home today Total Time Total Time Spent Total Time Spent (In Minutes): 35 Discharge Plan Discharge Items Patient Disposition: Home - Self-Care Reason For Visit: A. FLUTTER Discharge Diagnosis: Atrial flutter status post cardioversion Activity: Resume your previous activity Non-emergency contact: Primary Care Provider Call non-emergency contact if: you have any medication questions and your symptoms worsen Follow-up/Referrals: Jamee Alford MD [Primary Care Provider] - 04/16/23 3:00 pm (Will see Kary Pizano PA-c in Dr Alford's office) Diet: Heart Healthy Addtl Attending Provider Instructions: Advised to follow-up with PCP in 1 week Advised to talk to PCP about getting a sleep study done Advised to follow-up with admission discharge rn in [place] Pending Studies at Discharge: No Stand-Alone Forms: My [employer] Medications and DC Order Prescriptions: New Eliquis 5 mg Tablet 5 mg PO BID 30 Days Qty: 60 0RF Continued epinephrine [EpiPen 2-Wally] 0.3 mg/0.3 mL auto-injector 0.3 mg IM ONCE PRN (Reason: Allergic Reaction) Qty: 1 0RF nitroglycerin 0.4 mg tablet, sublingual 0.4 mg Sublingual UD PRN (Reason: Angina) Qty: 30 1RF azelastine 137 mcg (0.1 %) aerosol,spray 2 spray intranasal .COMPLEX Qty: 90 3RF Rx Instructions: 2 sprays intranasal 1-2 times daily; spray in both nostrils albuterol sulfate [ProAir HFA] 90 mcg/actuation HFA aerosol inhaler 2 puff INHALATION Q4 PRN (Reason: Shortness Of Breath) Qty: 8.5 3RF metoprolol tartrate 50 mg tablet 75 mg PO BID Qty: 270 3RF irbesartan 300 mg tablet 300 mg PO QAM Qty: 90 3RF cholecalciferol (vitamin D3) 25 mcg (1,000 unit) capsule 25 mcg PO DAILY ICaps AREDS2 250 mg-200 unit -12.5 mg-1 mg capsule 1 cap PO BID CBD oil 10 mg 10 mg PO BID Patient Comments: gummy form multivitamin Tablet 1 tab PO QAM aspirin [Wei Low Dose Aspirin] 81 mg Tablet,Delayed Release (Dr/Ec) 81 mg PO QAM acetaminophen [Acetaminophen Extra Strength] 500 mg Tablet 1,000 mg PO DAILY PRN (Reason: Pain) fluticasone propionate [Flonase Allergy Relief] 50 mcg/actuation [place],Suspension 2 spray INTRANASAL QPM coQ10 (ubiquinol) 200 mg Capsule 200 mg PO QAM omega 2-erg-irg-fish oil [Fish Oil] 1,000 mg (120 mg-180 mg) Capsule 1 cap PO BID atorvastatin 40 mg tablet 40 mg PO QPM amlodipine 10 mg tablet 10 mg PO QAM Mct Wellness 1 dose PO BID Patient Comments: powder form Super Beets 1 cap PO BID cetirizine [Zyrtec] 10 mg Tablet 10 mg PO HS famotidine [Pepcid AC] 20 mg tablet 20 mg PO HS Discharge Orders: Discharge Order (Routine); Ordered 04/11/23 Ordered By: Araseli Ledesma Admission Data Admit Date/Time: 04/09/23 18:33 Attending Provider: Araseli Ledesma Admit Provider: Ruben De Los Santos Primary Care Provider: Jamee Alford Other Providers: Giovanni Zuniga; Ruben De Los Santos; Giovanni Colindres; Fransisca Bernal; Magali Tompkins; Kraig Chua; Sharron Chua; Cesario Tolentino; Rojelio Rivers; Jose Campos; Winter Blunt; Alejandra Clark; Brittany Ramos; Carole Valentino; Rojelio Valentino V; Mayra Smith; Margarita Mares; Sugar Sales; Margie Hurley; Stevo Jean; Danie Mayer; Caren Phipps; Osbaldo Phipps; Chanelle Avalos; Tutu Acevedo; Ale Castro; Misti Núñez A.; Deysi Smith; Yas Verdugo.; Norma Alexander.; Jewel Kaye; Rashaun Henriquez; Shima Prince; Murali Barajas; Galindo Mora; Delaney Cortez; Osbaldo Nobles.; Vania Boyle.; Mar Walker; Giovanni Villa; Jaspal Hernandez; Eduardo Morataya; Robert Peres; Roni Peres; Raz Camacho; Murali Montenegro Jr; David Atwood; Misti Boo.; Lester Wells; Lelia Canseco; Odilon Stephenson; Jalen Leiva I.; Jewel Gonzalez; Valerie Mcfadden; Rojelio Shrestha; Davide Abdi; Sheree Dow; Jimi Harris V.; Augusto Duran; Priya Llamas SDale; Will Cee; Charlotte Thacker; Kelly Nash; Ligia Gonzalez; Jennifer Woodward; Ashly Olivo; Royce Olivo; Lula Torres; Eldon Benjamin; Soniya Muhammad; Aminta Michelle; Deysi Mackey; Severo Hernandez; E[place] Other Interventions: Discharge Summary Assessment (RN) Last Done: 04/11/23 09:18 Coding Level of Care Code 42145 INP/OBS DISCH >30 MIN Diagnoses Atrial flutter with rapid ventricular response I48.92 GERD (gastroesophageal reflux disease) K21.9 Primary hypertension I10 Hypertension type: primary hypertension Hyperlipidemia, unspecified hyperlipidemia type E78.5 Hyperlipidemia type: unspecified Coronary artery disease involving [place] coronary artery of [place] heart without angina pectoris I25.10 Associated angina: without angina Coronary Disease-Associated Artery/Lesion type: [place] artery [place] vs. transplanted heart: [place] heart
== END 2023-04-11 10:27 | disposition home or self-care (01) ==
LOC: ED 13:46 → INTOOBSV 18:33 → SUATTDRO 18:33 → 4W 18:33